=== PATIENT | female | born 1935 | race Caucasian/White ===

== ENCOUNTER 2020-04-09 08:35 | Outpatient (REF) | payer MEDICARE, SELFPAY ==
[2020-04-09 12:05] LABS: Creatinine Urine 68.25 mg/dL; Microalbum/Creatinine Ratio Ur 237.3 ug/mg cr
[2020-04-09 12:10] LABS: Alanine Aminotransferase 20 U/L (0-31); Albumin Level 4.5 g/dL (3.5-5.0); Alkaline Phosphatase 82 U/L (39-117); Anion Gap 12 (12-20); Aspartate Amino Transferase 26 U/L (5-31); Bilirubin Total 0.7 mg/dL (0.0-1.0); Blood Urea Nitrogen 18 mg/dL (9-16); Carbon Dioxide 31 mmol/L (22-29); Chloride 102 mmol/L (96-108); Cholesterol 142 mg/dL; Estimated Glomerular Filt Rate > 60; Glucose Fasting 111 mg/dL (60-99); HDL Cholesterol 62 mg/dL; LDL Cholesterol Calculated 58 mg/dl; Potassium 4.9 mmol/l (3.3-5.1); Sodium 140 mmol/L (135-145); Total Protein 7.1 g/dL (6.5-8.0); Triglycerides 110 mg/dL
[2020-04-09 12:37] LABS: Calcium 10.6 mg/dL (8.4-10.2)
[2020-04-09 12:40] LABS: Estimated Average Glucose 140 mg/dL; Hemoglobin A1C 152.3022 umol/L; Hemoglobin A1c % 6.5 %
== END 2020-04-09 08:36 | disposition home or self-care (01) ==
LOC: HO.MANLR 08:35
PROVIDERS: PCP Physician Assistant; Visit Provider Physician Assistant
DX: E11.9 Type 2 diabetes mellitus without complications (principal)
CPT/HCPCS: 80053; 80061; 82043; 83036

== ENCOUNTER 2020-07-06 08:16 | Outpatient (REF) | payer MEDICARE, SELFPAY ==
[2020-07-06 11:43] LABS: Estimated Average Glucose 143 mg/dL; Hemoglobin A1c % 6.6 %
== END 2020-07-06 08:17 | disposition home or self-care (01) ==
LOC: HO.MANLR 08:16
PROVIDERS: PCP Internal Medicine; Visit Provider Physician Assistant
DX: E11.9 Type 2 diabetes mellitus without complications (principal)
CPT/HCPCS: 36415; 83036

== ENCOUNTER 2020-09-22 09:12 | Outpatient (REF) | payer MEDICARE, SELFPAY ==
[2020-09-22 11:17] LABS: Estimated Average Glucose 143 mg/dL; Hemoglobin A1c % 6.6 %
[2020-09-22 12:00] LABS: Alanine Aminotransferase 16 U/L (0-31); Albumin Level 4.4 g/dL (3.5-5.0); Alkaline Phosphatase 84 U/L (39-117); Anion Gap 17 (12-20); Aspartate Amino Transferase 24 U/L (5-31); Blood Urea Nitrogen 14 mg/dL (9-16); Calcium 10.3 mg/dL (8.4-10.2); Carbon Dioxide 29 mmol/L (22-29); Chloride 101 mmol/L (96-108); Cholesterol 148 mg/dL; Estimated Glomerular Filt Rate > 60; Glucose Fasting 112 mg/dL (60-99); HDL Cholesterol 64 mg/dL; LDL Cholesterol Calculated 57 mg/dl; Potassium 4.9 mmol/L (3.3-5.1); Sodium 142 mmol/L (135-145); Total Protein 7.1 g/dL (6.5-8.0); Triglycerides 137 mg/dL
== END 2020-09-22 09:13 | disposition home or self-care (01) ==
LOC: HO.MANLDS 09:12
PROVIDERS: PCP Internal Medicine; Visit Provider Physician Assistant
DX: E11.9 Type 2 diabetes mellitus without complications (principal)
CPT/HCPCS: 36415; 80053; 80061; 83036

== ENCOUNTER 2020-09-27 10:30 | Outpatient (REF) | payer MEDICARE, SELFPAY ==
[2020-09-27 14:03] LABS: Creatinine Urine 26.62 mg/dL; Microalbumin Urine < 5.0 mg/L
== END 2020-09-27 10:31 | disposition home or self-care (01) ==
LOC: HO.MANLNP 10:30
PROVIDERS: Visit Provider Physician Assistant
DX: E11.9 Type 2 diabetes mellitus without complications (principal)
CPT/HCPCS: 82043

== ENCOUNTER 2020-10-06 08:24 | Outpatient (REF) | payer MEDICARE, SELFPAY ==
[2020-10-06 11:26] LABS: Estimated Average Glucose 140 mg/dL; Hemoglobin A1C 149.2186 umol/L; Hemoglobin A1c % 6.5 %
== END 2020-10-06 08:25 | disposition home or self-care (01) ==
LOC: HO.MANLDS 08:24
PROVIDERS: PCP Internal Medicine; Visit Provider Physician Assistant
DX: E11.9 Type 2 diabetes mellitus without complications (principal)
CPT/HCPCS: 36415; 83036

== ENCOUNTER 2021-01-18 08:30 | Outpatient (REF) | payer MEDICARE, SELFPAY ==
[2021-01-18 11:39] LABS: Estimated Average Glucose 160 mg/dL; Hemoglobin A1c % 7.2 %
== END 2021-01-18 08:31 | disposition home or self-care (01) ==
LOC: HO.MANLDS 08:30
PROVIDERS: PCP Internal Medicine; Visit Provider Physician Assistant
DX: E11.9 Type 2 diabetes mellitus without complications (principal)
CPT/HCPCS: 36415; 83036

== ENCOUNTER 2021-01-26 13:07 | Outpatient (REF) | payer MEDICARE, SELFPAY ==
[2021-01-26 14:21] LABS: Iron 65 mcg/dL (30-160); Percent Iron Saturation 21 % (15-50); Total Iron Binding Capacity 306 mcg/dL (228-428); Unsaturated Iron Binding 241 ug/dL
[2021-01-26 14:42] LABS: Ferritin 67 ng/mL (10-250); Free T4 (Free Thyroxine) 0.99 ng/dL (0.71-1.85); Thyroid Stimulating Hormone 1.55 uIU/mL (0.32-4.0); Vitamin D 25-OH Total 40.2 ng/mL (>30)
[2021-01-26 14:49] LABS: Folate > 20.0 ng/mL (> or = 4.0); Vitamin B12 219 pg/mL (200-900)
== END 2021-01-26 13:08 | disposition home or self-care (01) ==
LOC: HO.LAB 13:07
PROVIDERS: PCP Physician Assistant; Visit Provider Physician Assistant
DX: L63.8 Other alopecia areata (principal)
CPT/HCPCS: 36415; 82306; 82607; 82728; 82746; 83540; 84439; 84443

== ENCOUNTER 2021-04-22 07:38 | Outpatient (REF) | payer MEDICARE, SELFPAY ==
[2021-04-22 10:39] LABS: Estimated Average Glucose 160 mg/dL; Hemoglobin A1c % 7.2 %
[2021-04-22 11:05] LABS: Creatinine Urine 94.59 mg/dL; Microalbum/Creatinine Ratio Ur 238.9 ug/mg cr
[2021-04-22 11:07] LABS: Alanine Aminotransferase 19 U/L (0-31); Albumin Level 4.4 g/dL (3.5-5.0); Alkaline Phosphatase 81 U/L (39-117); Aspartate Amino Transferase 24 U/L (5-31); Bilirubin Total 0.4 mg/dL (0.0-1.0); Blood Urea Nitrogen 15 mg/dL (9-16); Cholesterol 135 mg/dL; Estimated Glomerular Filt Rate 57; Glucose Fasting 151 mg/dL (60-99); HDL Cholesterol 58 mg/dL; LDL Cholesterol Calculated 51 mg/dl; Total Protein 7.1 g/dL (6.5-8.0); Triglycerides 132 mg/dL
[2021-04-22 11:50] LABS: Anion Gap 15 (12-20); Calcium 10.5 mg/dL (8.4-10.2); Carbon Dioxide 28 mmol/L (22-29); Chloride 103 mmol/L (96-108); Potassium 5.4 mmol/L (3.3-5.1); Sodium 141 mmol/L (135-145)
== END 2021-04-22 07:39 | disposition home or self-care (01) ==
LOC: HO.10HDL 07:38
PROVIDERS: Visit Provider Physician Assistant
DX: E11.9 Type 2 diabetes mellitus without complications (principal)
CPT/HCPCS: 36415; 80053; 80061; 82043; 83036

== ENCOUNTER 2021-05-02 11:23 | Outpatient (REF) | payer MEDICARE, SELFPAY ==
--- NOTE | ~2021-05-02 | XR_ITS ---
EXAMINATION: XR THORACIC SPINE XR LUMBAR SPINE CLINICAL INFORMATION: Pain in thoracic and lumbar spine. COMPARISON: Report from lumbar spine radiographs dated 07/19/2012. TECHNIQUE: AP, lateral, and swimmer's views of the thoracic spine. AP, lateral, and coned-down views of the lumbar spine. FINDINGS: Thoracic Spine: The thoracic kyphosis is maintained. No acute fracture or subluxation. No loss of vertebral body height. Mild multilevel loss of intervertebral disc height with anterior endplate osteophytes. No lytic or blastic osseous lesion. The visualized lungs are clear. Lumbar Spine: Rotational dextrocurvature of the lumbar spine centered at the L3 vertebral body. Grade 1 anterolisthesis of L3 on L4. No acute fracture. No loss of vertebral body height. Multilevel loss of intervertebral disc height with endplate osteophytes. Prominent bilateral facet arthropathy at L3-S1. Atherosclerotic calcifications. Right pelvic surgical clips. XR/XR lumbar spine 2-3V IMPRESSION: THORACIC SPINE: Mgoa-px-fbjlothn multilevel degenerative disc disease. LUMBAR SPINE: Rotational dextrocurvature centered at the L3 vertebral body. Grade 1 anterolisthesis of L3 on L4. Ymemgifu-lk-ccdgon multilevel degenerative disc disease with prominent bilateral facet arthropathy at L3-S1.
--- NOTE | ~2021-05-02 | XR_ITS ---
EXAMINATION: XR THORACIC SPINE XR LUMBAR SPINE CLINICAL INFORMATION: Pain in thoracic and lumbar spine. COMPARISON: Report from lumbar spine radiographs dated 07/19/2012. TECHNIQUE: AP, lateral, and swimmer's views of the thoracic spine. AP, lateral, and coned-down views of the lumbar spine. FINDINGS: Thoracic Spine: The thoracic kyphosis is maintained. No acute fracture or subluxation. No loss of vertebral body height. Mild multilevel loss of intervertebral disc height with anterior endplate osteophytes. No lytic or blastic osseous lesion. The visualized lungs are clear. Lumbar Spine: Rotational dextrocurvature of the lumbar spine centered at the L3 vertebral body. Grade 1 anterolisthesis of L3 on L4. No acute fracture. No loss of vertebral body height. Multilevel loss of intervertebral disc height with endplate osteophytes. Prominent bilateral facet arthropathy at L3-S1. Atherosclerotic calcifications. Right pelvic surgical clips. XR/XR thoracic spine 3V IMPRESSION: THORACIC SPINE: Iswr-is-ybmzrfty multilevel degenerative disc disease. LUMBAR SPINE: Rotational dextrocurvature centered at the L3 vertebral body. Grade 1 anterolisthesis of L3 on L4. Dcdjmqcv-nw-yvfxdg multilevel degenerative disc disease with prominent bilateral facet arthropathy at L3-S1.
== END 2021-05-02 11:24 | disposition home or self-care (01) ==
LOC: HO.XRAY 11:23
PROVIDERS: PCP Internal Medicine; Visit Provider Physician Assistant
DX: M54.59 Other low back pain (principal); M54.6 Pain in thoracic spine
CPT/HCPCS: 72072; 72100

== ENCOUNTER 2021-07-27 09:05 | Outpatient (REF) | payer MEDICARE, SELFPAY ==
[2021-07-27 10:58] LABS: Estimated Average Glucose 160 mg/dL; Hemoglobin A1c % 7.2 %
[2021-07-27 11:01] LABS: Alanine Aminotransferase 19 U/L (0-31); Albumin Level 4.4 g/dL (3.5-5.0); Alkaline Phosphatase 86 U/L (39-117); Anion Gap 16 (12-20); Aspartate Amino Transferase 24 U/L (5-31); Bilirubin Total 0.5 mg/dL (0.0-1.0); Blood Urea Nitrogen 17 mg/dL (9-16); Calcium 10.7 mg/dL (8.4-10.2); Carbon Dioxide 29 mmol/L (22-29); Chloride 103 mmol/L (96-108); Cholesterol 144 mg/dL; Estimated Glomerular Filt Rate > 60; Glucose Fasting 155 mg/dL (60-99); HDL Cholesterol 60 mg/dL; LDL Cholesterol Calculated 58 mg/dl; Potassium 5.3 mmol/L (3.3-5.1); Sodium 143 mmol/L (135-145); Triglycerides 131 mg/dL
[2021-07-27 11:30] LABS: Creatinine Urine 81.35 mg/dL; Microalbum/Creatinine Ratio Ur 243.3 ug/mg cr
== END 2021-07-27 09:06 | disposition home or self-care (01) ==
LOC: HO.10HDLR 09:05
PROVIDERS: Visit Provider Physician Assistant
DX: E11.9 Type 2 diabetes mellitus without complications (principal)
CPT/HCPCS: 36415; 80053; 80061; 82043; 83036

== ENCOUNTER 2021-10-26 08:44 | Outpatient (REF) | payer MEDICARE, SELFPAY ==
[2021-10-26 11:06] LABS: Alanine Aminotransferase 18 U/L (0-31); Albumin Level 4.4 g/dL (3.5-5.0); Alkaline Phosphatase 83 U/L (39-117); Anion Gap 14 (12-20); Aspartate Amino Transferase 24 U/L (5-31); Bilirubin Total 0.5 mg/dL (0.0-1.0); Blood Urea Nitrogen 16 mg/dL (9-16); Calcium 10.9 mg/dL (8.4-10.2); Carbon Dioxide 30 mmol/L (22-29); Chloride 105 mmol/L (96-108); Cholesterol 140 mg/dL; Estimated Glomerular Filt Rate 55; Glucose Random 144 mg/dL (60-115); HDL Cholesterol 56 mg/dL; LDL Cholesterol Calculated 56 mg/dl; Potassium 5.2 mmol/L (3.3-5.1); Sodium 144 mmol/L (135-145); Total Protein 7.2 g/dL (6.5-8.0); Triglycerides 143 mg/dL
[2021-10-26 11:08] LABS: Estimated Average Glucose 151 mg/dL; Hemoglobin A1c % 6.9 %
== END 2021-10-26 08:45 | disposition home or self-care (01) ==
LOC: HO.10HDL 08:44
PROVIDERS: Visit Provider Physician Assistant
DX: E11.9 Type 2 diabetes mellitus without complications (principal)
CPT/HCPCS: 36415; 80053; 80061; 83036

== ENCOUNTER 2021-11-16 10:30 | Outpatient (REF) | payer MEDICARE, SELFPAY ==
[2021-11-16 13:44] LABS: Calcium 10.9 mg/dL (8.4-10.2)
[2021-11-17 13:14] LABS: Calcium (PTHI) 10.7 mg/dL (8.6-10.4); PTHI 46 pg/mL (16-77)
== END 2021-11-16 10:31 | disposition home or self-care (01) ==
LOC: HO.10HDL 10:30
PROVIDERS: Visit Provider Physician Assistant
DX: E83.52 Hypercalcemia (principal)
CPT/HCPCS: 36415; 82310; 83970

== ENCOUNTER 2021-12-13 10:12 | Outpatient (REF) | payer MEDICARE, SELFPAY ==
[2021-12-13 14:07] LABS: Estimated Average Glucose 151 mg/dL; Hemoglobin A1c % 6.9 %
== END 2021-12-13 10:13 | disposition home or self-care (01) ==
LOC: HO.10HDL 10:12
PROVIDERS: Visit Provider Physician Assistant
DX: E11.9 Type 2 diabetes mellitus without complications (principal)
CPT/HCPCS: 36415; 83036

== ENCOUNTER 2022-05-10 08:15 | Outpatient (REF) | payer MEDICARE, SELFPAY ==
[2022-05-10 11:02] LABS: Estimated Average Glucose 166 mg/dL; Hemoglobin A1c % 7.4 %
[2022-05-10 12:29] LABS: Alanine Aminotransferase 24 U/L (0-31); Albumin Level 4.6 g/dL (3.5-5.0); Alkaline Phosphatase 78 U/L (39-117); Anion Gap 18 (12-20); Aspartate Amino Transferase 27 U/L (5-31); Bilirubin Total 0.6 mg/dL (0.0-1.0); Blood Urea Nitrogen 15 mg/dL (9-16); Calcium 10.6 mg/dL (8.4-10.2); Carbon Dioxide 28 mmol/L (22-29); Chloride 100 mmol/L (96-108); Cholesterol 160 mg/dL; Estimated Glomerular Filt Rate > 60; Glucose Fasting 138 mg/dL (60-99); HDL Cholesterol 72 mg/dL; LDL Cholesterol Calculated 71 mg/dl; Potassium 4.6 mmol/L (3.3-5.1); Sodium 141 mmol/L (135-145); Total Protein 7.3 g/dL (6.5-8.0); Triglycerides 87 mg/dL
== END 2022-05-10 08:16 | disposition home or self-care (01) ==
LOC: HO.10HDLR 08:15
PROVIDERS: Visit Provider Physician Assistant
DX: E11.9 Type 2 diabetes mellitus without complications (principal)
CPT/HCPCS: 36415; 80053; 80061; 83036

== ENCOUNTER 2022-08-10 08:49 | Outpatient (REF) | payer MEDICARE, SELFPAY ==
[2022-08-10 11:46] LABS: Alanine Aminotransferase 20 U/L (0-31); Albumin Level 4.4 g/dL (3.5-5.0); Alkaline Phosphatase 76 U/L (39-117); Anion Gap 17 (12-20); Aspartate Amino Transferase 27 U/L (5-31); Bilirubin Total 0.9 mg/dL (0.0-1.0); Blood Urea Nitrogen 15 mg/dL (9-16); Calcium 10.5 mg/dL (8.4-10.2); Carbon Dioxide 28 mmol/L (22-29); Chloride 101 mmol/L (96-108); Cholesterol 152 mg/dL; Estimated Glomerular Filt Rate > 60; Glucose Fasting 132 mg/dL (60-99); HDL Cholesterol 61 mg/dL; LDL Cholesterol Calculated 61 mg/dl; Potassium 4.5 mmol/L (3.3-5.1); Sodium 141 mmol/L (135-145); Triglycerides 154 mg/dL
[2022-08-10 11:48] LABS: Estimated Average Glucose 160 mg/dL; Hemoglobin A1c % 7.2 %
== END 2022-08-10 08:50 | disposition home or self-care (01) ==
LOC: HO.10HDLR 08:49
PROVIDERS: Visit Provider Physician Assistant
DX: E11.9 Type 2 diabetes mellitus without complications (principal)
CPT/HCPCS: 36415; 80053; 80061; 83036

== ENCOUNTER 2022-11-10 08:37 | Outpatient (REF) | payer MEDICARE, SELFPAY ==
[2022-11-10 10:44] LABS: Estimated Average Glucose 157 mg/dL; Hemoglobin A1c % 7.1 %
[2022-11-10 11:05] LABS: Alanine Aminotransferase 32 U/L (0-31); Albumin Level 4.2 g/dL (3.5-5.0); Alkaline Phosphatase 74 U/L (39-117); Anion Gap 13 (12-20); Aspartate Amino Transferase 34 U/L (5-31); Bilirubin Total 0.4 mg/dL (0.0-1.0); Blood Urea Nitrogen 16 mg/dL (9-16); Calcium 10.2 mg/dL (8.4-10.2); Carbon Dioxide 31 mmol/L (22-29); Chloride 105 mmol/L (96-108); Cholesterol 140 mg/dL; Estimated Glomerular Filt Rate > 60; Glucose Fasting 125 mg/dL (60-99); HDL Cholesterol 63 mg/dL; LDL Cholesterol Calculated 63 mg/dl; Potassium 4.9 mmol/L (3.3-5.1); Sodium 144 mmol/L (135-145); Total Protein 6.7 g/dL (6.5-8.0); Triglycerides 70 mg/dL
== END 2022-11-10 08:38 | disposition home or self-care (01) ==
LOC: HO.10HDL 08:37
PROVIDERS: Visit Provider Physician Assistant
DX: E11.9 Type 2 diabetes mellitus without complications (principal)
CPT/HCPCS: 36415; 80053; 80061; 83036

== ENCOUNTER 2023-03-07 09:32 | Outpatient (REF) | payer MEDICARE, SELFPAY ==
[2023-03-07 10:11] LABS: MANUAL DIFF FLAG NO
[2023-03-07 10:16] LABS: Basophils Percent Auto 0.3 % (0-2); Eosinophils Absolute Auto 0.1 X10*3/uL (0.0-0.4); Hematocrit 40.6 % (37.0-47.0); Hemoglobin 13.5 g/dl (12.0-16.0); Imm Gran Abs Auto 0.02 X10*3/uL (0.00-0.03); Imm Gran Pct Auto 0.3 % (0.0-0.4); Lymphocytes Absolute Auto 1.9 X10*3/uL (1.2-4.9); Mean Corpuscular HGB Conc 33.3 g/dl (31.0-35.0); Mean Corpuscular Hemoglobin 32.8 pg (27.0-33.0); Mean Corpuscular Volume 98.8 fL (80.0-98.0); Mean Platelet Volume 10.2 fL (9.4-12.3); Monocytes Absolute Auto 0.5 X10*3/uL (0.1-1.2); Monocytes Percent Auto 7.7 % (2-11); Neutrophils Absolute Auto 3.4 x10*3/uL (2.0-8.3); Neutrophils Percent Auto 58.7 % (45-73); Platelet Count 210 X10*3/uL (160-400); Red Blood Count 4.11 X10*6/uL (4.20-5.50); Red Cell Distribution Width 12.9 % (11.0-16.0); White Blood Count 5.8 X10*3/uL (4.8-10.8)
[2023-03-07 10:45] LABS: Estimated Average Glucose 151 mg/dL; Hemoglobin A1c % 6.9 % (<6.0)
[2023-03-07 11:10] LABS: Creatinine Urine 84.05 mg/dL; Microalbum/Creatinine Ratio Ur 303.3 ug/mg cr (<30)
[2023-03-07 11:11] LABS: Alanine Aminotransferase 22 U/L (0-31); Albumin Level 4.5 g/dL (3.5-5.0); Alkaline Phosphatase 72 U/L (39-117); Anion Gap 12 (12-20); Aspartate Amino Transferase 29 U/L (5-31); Bilirubin Total 0.6 mg/dL (0.0-1.0); Blood Urea Nitrogen 17 mg/dL (9-16); Calcium 10.7 mg/dL (8.4-10.2); Carbon Dioxide 29 mmol/L (22-29); Chloride 104 mmol/L (96-108); Cholesterol 135 mg/dL (<200); Estimated Glomerular Filt Rate > 60; Glucose Random 147 mg/dL (60-115); HDL Cholesterol 63 mg/dL (>40); LDL Cholesterol Calculated 48 mg/dL (<100); Potassium 4.9 mmol/L (3.3-5.1); Sodium 140 mmol/L (135-145); Total Protein 7.6 g/dL (6.5-8.0); Triglycerides 123 mg/dL (<150)
== END 2023-03-07 09:33 | disposition home or self-care (01) ==
LOC: HO.10HDL 09:32
PROVIDERS: Visit Provider Physician Assistant
DX: E11.9 Type 2 diabetes mellitus without complications (principal); E78.2 Mixed hyperlipidemia
CPT/HCPCS: 36415; 80053; 80061; 82043; 82570; 83036; 85025

== ENCOUNTER 2023-03-12 10:52 | Outpatient (REF) | payer MEDICARE, SELFPAY ==
[2023-03-12 13:34] LABS: Calcium 10.9 mg/dL (8.4-10.2)
[2023-03-13 17:09] LABS: Calcium (PTHI) 10.7 mg/dL (8.6-10.4); PTHI 44 pg/mL (16-77)
== END 2023-03-12 10:53 | disposition home or self-care (01) ==
LOC: HO.10HDL 10:52
PROVIDERS: Visit Provider Physician Assistant
DX: E83.52 Hypercalcemia (principal)
CPT/HCPCS: 36415; 82310; 83970

== ENCOUNTER 2023-04-04 14:09 | Outpatient (REF) | payer MEDICARE, SELFPAY | END 2023-04-04 14:10 | disposition home or self-care (01) | LOC: HO.US 14:09 | PROVIDERS: PCP Internal Medicine; Visit Provider Physician Assistant | DX: E21.3 Hyperparathyroidism, unspecified (principal) | CPT/HCPCS: 76536 ==

== ENCOUNTER 2023-04-06 08:38 | Outpatient (REF) | payer MEDICARE, SELFPAY | END 2023-04-06 08:39 | disposition home or self-care (01) | LOC: HO.MAMMO 08:38 | PROVIDERS: PCP Physician Assistant; Visit Provider Physician Assistant | DX: Z13.820 Encounter for screening for osteoporosis (principal); Z78.0 Asymptomatic menopausal state; M81.0 Age-related osteoporosis without current pathological fracture | CPT/HCPCS: 77080 ==

== ENCOUNTER 2023-05-22 09:07 | Outpatient (REF) | payer MEDICARE, SELFPAY ==
[2023-05-22 10:50] LABS: Estimated Average Glucose 160 mg/dL; Hemoglobin A1C 192.5946 umol/L; Hemoglobin A1c % 7.2 % (<6.0)
[2023-05-22 10:53] LABS: Alanine Aminotransferase 23 U/L (0-31); Albumin Level 4.4 g/dL (3.5-5.0); Alkaline Phosphatase 73 U/L (39-117); Anion Gap 13 (12-20); Aspartate Amino Transferase 30 U/L (5-31); Bilirubin Total 0.6 mg/dL (0.0-1.0); Blood Urea Nitrogen 12 mg/dL (9-16); Calcium 10.9 mg/dL (8.4-10.2); Carbon Dioxide 30 mmol/L (22-29); Chloride 106 mmol/L (96-108); Estimated Glomerular Filt Rate 49; Glucose Random 158 mg/dL (60-115); Potassium 5.1 mmol/L (3.3-5.1); Sodium 144 mmol/L (135-145); Total Protein 7.6 g/dL (6.5-8.0)
== END 2023-05-22 09:08 | disposition home or self-care (01) ==
LOC: HO.10HDL 09:07
PROVIDERS: Visit Provider Physician Assistant
DX: E11.9 Type 2 diabetes mellitus without complications (principal)
CPT/HCPCS: 36415; 80053; 83036

== ENCOUNTER 2023-08-23 08:50 | Outpatient (REF) | payer MEDICARE, SELFPAY ==
[2023-08-23 11:21] LABS: Alanine Aminotransferase 23 U/L (0-31); Albumin Level 4.5 g/dL (3.5-5.0); Alkaline Phosphatase 80 U/L (39-117); Anion Gap 17 (12-20); Aspartate Amino Transferase 31 U/L (5-31); Bilirubin Total 0.6 mg/dL (0.0-1.0); Blood Urea Nitrogen 15 mg/dL (9-16); Calcium 10.7 mg/dL (8.4-10.2); Carbon Dioxide 28 mmol/L (22-29); Chloride 103 mmol/L (96-108); Estimated Glomerular Filt Rate > 60; Glucose Random 147 mg/dL (60-115); Potassium 4.5 mmol/L (3.3-5.1); Sodium 143 mmol/L (135-145); Total Protein 7.6 g/dL (6.5-8.0)
== END 2023-08-23 08:51 | disposition home or self-care (01) ==
LOC: HO.10HDL 08:50
PROVIDERS: Visit Provider Physician Assistant
DX: E11.9 Type 2 diabetes mellitus without complications (principal)
CPT/HCPCS: 36415; 80053

== ENCOUNTER 2023-09-07 08:47 | Outpatient (REF) | payer MEDICARE, SELFPAY ==
[2023-09-07 11:49] LABS: MANUAL DIFF FLAG NO
[2023-09-07 12:01] LABS: Basophils Percent Auto 0.3 % (0-2); Eosinophils Absolute Auto 0.1 X10*3/uL (0.0-0.4); Eosinophils Percent Auto 1.2 % (0-4); Hemoglobin 13.4 g/dl (12.0-16.0); Imm Gran Abs Auto 0.04 X10*3/uL (0.00-0.03); Imm Gran Pct Auto 0.7 % (0.0-0.4); Lymphocytes Absolute Auto 2.2 X10*3/uL (1.2-4.9); Lymphocytes Percent Auto 36.8 % (20-40); Mean Corpuscular HGB Conc 32.7 g/dl (31.0-35.0); Mean Corpuscular Hemoglobin 32.6 pg (27.0-33.0); Mean Corpuscular Volume 99.8 fL (80.0-98.0); Mean Platelet Volume 10.3 fL (9.4-12.3); Monocytes Absolute Auto 0.4 X10*3/uL (0.1-1.2); Monocytes Percent Auto 6.5 % (2-11); Neutrophils Absolute Auto 3.3 x10*3/uL (2.0-8.3); Neutrophils Percent Auto 54.5 % (45-73); Platelet Count 225 X10*3/uL (160-400); Red Blood Count 4.11 X10*6/uL (4.20-5.50); Red Cell Distribution Width 13.6 % (11.0-16.0)
[2023-09-07 12:14] LABS: Estimated Average Glucose 146 mg/dL; Hemoglobin A1c % 6.7 % (<6.0)
[2023-09-07 13:01] LABS: Alanine Aminotransferase 23 U/L (0-31); Albumin Level 4.4 g/dL (3.5-5.0); Alkaline Phosphatase 79 U/L (39-117); Anion Gap 17 (12-20); Aspartate Amino Transferase 30 U/L (5-31); Bilirubin Total 0.5 mg/dL (0.0-1.0); Blood Urea Nitrogen 15 mg/dL (9-16); Calcium 10.5 mg/dL (8.4-10.2); Carbon Dioxide 30 mmol/L (22-29); Chloride 102 mmol/L (96-108); Cholesterol 138 mg/dL (<200); Estimated Glomerular Filt Rate 57; Glucose Random 142 mg/dL (60-115); HDL Cholesterol 66 mg/dL (>40); LDL Cholesterol Calculated 46 mg/dL (<100); Potassium 4.5 mmol/L (3.3-5.1); Sodium 144 mmol/L (135-145); Total Protein 7.6 g/dL (6.5-8.0); Triglycerides 130 mg/dL (<150)
== END 2023-09-07 08:48 | disposition home or self-care (01) ==
LOC: HO.10HDL 08:47
PROVIDERS: Visit Provider Physician Assistant
DX: E78.2 Mixed hyperlipidemia (principal); E11.9 Type 2 diabetes mellitus without complications
CPT/HCPCS: 36415; 80053; 80061; 83036; 85025

== ENCOUNTER 2023-10-24 13:18 | Outpatient (REF) | payer MEDICARE, SELFPAY ==
--- NOTE | ~2023-10-24 | US_ITS ---
EXAMINATION: US THYROID CLINICAL INFORMATION: Hyperparathyroidism. COMPARISON: Ultrasound thyroid 04/04/2023. TECHNIQUE: Linear transducer lopez-scale and color Doppler examination with attention to the region of the thyroid. FINDINGS: SIZE: Measurements of the thyroid lobes and nodules are given in sagittal, anteroposterior and transverse dimensions respectively. Right Thyroid Lobe: 4.2 x 1.6 x 1.6 cm, volume 5.7 mL. Parenchyma: The gland echotexture is homogeneous. Thyroid vascularity is normal. Left Thyroid Lobe: 4.5 x 2.0 x 1.1 cm, volume 4.9 mL. Parenchyma: The gland echotexture is homogeneous. Thyroid vascularity is normal. Isthmus: 0.3 cm in maximum AP dimension. Estimated total number of nodules greater than or equal to 1 cm: 0. Bag Cutter nodules are described as follows: 1. Location: Left very inferior. Size: 0.6 x 0.6 x 0.7 cm, volume 0.12 mL. Previously 0.7 x 0.6 x 0.6 cm, volume 0.13 mL. Nodule characteristics: Composition: Solid (2). Echogenicity: Very hypoechoic (3). Shape: Not taller than wide (0). Margins: Smooth (0). Echogenic Foci: None (0). ACR TI-RADS total points: 5, previously 5. ACR TI-RADS category: 4, previously 4. 2. Location: Left lower pole. 1.5 x 1.0 x 1.1 cm, volume 0.9 mL. Not previously measured. Nodule characteristics: Composition: Solid (2). Echogenicity: Hypoechoic (2). Shape: Not taller than wide (0). Margins: Smooth (0). Echogenic Foci: Punctate echogenic foci (3). ACR TI-RADS total points: 7 ACR TI-RADS category: 5 Multiple small, bilateral subcentimeter TR1 colloid cysts redemonstrated. NODES: No lymphadenopathy is seen in the tissue surrounding the thyroid gland. US/US thyroid IMPRESSION: 1.5 cm left lower pole TR5 thyroid nodule was not previously imaged and meets criteria for biopsy. Fine-needle aspiration recommended. This study was presented today, 10/31/2023, for interpretation. Prompt priority results supplied at this time to the referring provider as requested by the provider. ACR TI-RADS RECOMMENDATION REFERENCE: Ultrasound-guided fine-needle aspiration, followup ultrasound, no further follow up. * TR1 (0 point) and TR2 (2 points): No FNA or follow up. * TR3 (3 points): FNA if more than or equal to 2.5 cm in maximum dimension, followup ultrasound in 1, 3 and 5 years if 1.5 to 2.4 cm in maximum dimension. * TR4 (4-6 points): FNA if more than or equal to 1.5 cm in maximum dimension, followup ultrasound in 1, 2, 3 and 5 years if 1 to 1.4 cm in maximum dimension. * TR5 (more than or equal to 7 points): FNA if more than or equal to 1 cm in maximum dimension, followup ultrasound every year for 5 years if 0.5 to 0.9 cm in maximum dimension. * TR3, TR4 or TR5 nodules that are below the size threshold for followup receive no follow up.
== END 2023-10-24 13:19 | disposition home or self-care (01) ==
LOC: HO.US 13:18
PROVIDERS: PCP Physician Assistant; Visit Provider Physician Assistant
DX: E21.0 Primary hyperparathyroidism (principal)
CPT/HCPCS: 76536

== ENCOUNTER 2023-12-11 08:03 | Outpatient (REF) | payer MEDICARE, SELFPAY ==
[2023-12-11 10:56] LABS: MANUAL DIFF FLAG NO
[2023-12-11 11:10] LABS: Basophils Percent Auto 0.4 % (0-2); Eosinophils Absolute Auto 0.1 X10*3/uL (0.0-0.4); Eosinophils Percent Auto 1.7 % (0-4); Hematocrit 39.3 % (37.0-47.0); Hemoglobin 13.1 g/dl (12.0-16.0); Imm Gran Abs Auto 0.01 X10*3/uL (0.00-0.03); Imm Gran Pct Auto 0.2 % (0.0-0.4); Lymphocytes Absolute Auto 1.5 X10*3/uL (1.2-4.9); Lymphocytes Percent Auto 30.5 % (20-40); Mean Corpuscular HGB Conc 33.3 g/dl (31.0-35.0); Mean Corpuscular Hemoglobin 33.1 pg (27.0-33.0); Mean Corpuscular Volume 99.2 fL (80.0-98.0); Mean Platelet Volume 10.1 fL (9.4-12.3); Monocytes Absolute Auto 0.5 X10*3/uL (0.1-1.2); Monocytes Percent Auto 10.9 % (2-11); Neutrophils Absolute Auto 2.7 x10*3/uL (2.0-8.3); Neutrophils Percent Auto 56.3 % (45-73); Platelet Count 194 X10*3/uL (160-400); Red Blood Count 3.96 X10*6/uL (4.20-5.50); White Blood Count 4.8 X10*3/uL (4.8-10.8)
[2023-12-11 11:18] LABS: Estimated Average Glucose 148 mg/dL; Hemoglobin A1c % 6.8 % (<6.0)
[2023-12-11 12:27] LABS: Alanine Aminotransferase 26 U/L (0-31); Albumin Level 4.3 g/dL (3.5-5.0); Alkaline Phosphatase 77 U/L (39-117); Anion Gap 15 (12-20); Aspartate Amino Transferase 31 U/L (5-31); Bilirubin Total 0.5 mg/dL (0.0-1.0); Blood Urea Nitrogen 8 mg/dL (9-16); Calcium 10.5 mg/dL (8.4-10.2); Carbon Dioxide 27 mmol/L (22-29); Chloride 103 mmol/L (96-108); Cholesterol 126 mg/dL (<200); Estimated Glomerular Filt Rate > 60; Glucose Random 128 mg/dL (60-115); HDL Cholesterol 55 mg/dL (>40); LDL Cholesterol Calculated 43 mg/dL (<100); Potassium 4.2 mmol/L (3.3-5.1); Sodium 141 mmol/L (135-145); Total Protein 7.2 g/dL (6.5-8.0); Triglycerides 140 mg/dL (<150)
== END 2023-12-11 08:04 | disposition home or self-care (01) ==
LOC: HO.10HDL 08:03
PROVIDERS: Visit Provider Physician Assistant
DX: E78.2 Mixed hyperlipidemia (principal); E11.9 Type 2 diabetes mellitus without complications
CPT/HCPCS: 36415; 80053; 80061; 83036; 85025

== ENCOUNTER 2024-03-24 10:16 | Outpatient (REF) | payer MEDICARE, SELFPAY ==
[2024-03-24 13:14] LABS: MANUAL DIFF FLAG NO
[2024-03-24 13:18] LABS: Basophils Percent Auto 0.4 % (0-2); Eosinophils Absolute Auto 0.1 X10*3/uL (0.0-0.4); Eosinophils Percent Auto 1.5 % (0-4); Hematocrit 39.5 % (37.0-47.0); Imm Gran Abs Auto 0.01 X10*3/uL (0.00-0.03); Imm Gran Pct Auto 0.2 % (0.0-0.4); Lymphocytes Absolute Auto 2.2 X10*3/uL (1.2-4.9); Mean Corpuscular HGB Conc 32.9 g/dl (31.0-35.0); Mean Corpuscular Hemoglobin 32.7 pg (27.0-33.0); Mean Corpuscular Volume 99.5 fL (80.0-98.0); Mean Platelet Volume 10.1 fL (9.4-12.3); Monocytes Absolute Auto 0.4 X10*3/uL (0.1-1.2); Monocytes Percent Auto 7.3 % (2-11); Neutrophils Absolute Auto 2.7 x10*3/uL (2.0-8.3); Neutrophils Percent Auto 50.6 % (45-73); Platelet Count 208 X10*3/uL (160-400); Red Blood Count 3.97 X10*6/uL (4.20-5.50); Red Cell Distribution Width 13.2 % (11.0-16.0); White Blood Count 5.4 X10*3/uL (4.8-10.8)
[2024-03-24 13:32] LABS: Alanine Aminotransferase 24 U/L (0-31); Albumin Level 4.4 g/dL (3.5-5.0); Alkaline Phosphatase 74 U/L (39-117); Anion Gap 14 (12-20); Aspartate Amino Transferase 31 U/L (5-31); Bilirubin Total 0.6 mg/dL (0.0-1.0); Blood Urea Nitrogen 12 mg/dL (9-16); Calcium 10.5 mg/dL (8.4-10.2); Carbon Dioxide 28 mmol/L (22-29); Chloride 102 mmol/L (96-108); Cholesterol 133 mg/dL (<200); Estimated Glomerular Filt Rate 57; Glucose Random 134 mg/dL (60-115); HDL Cholesterol 59 mg/dL (>40); LDL Cholesterol Calculated 49 mg/dL (<100); Potassium 4.1 mmol/L (3.3-5.1); Sodium 140 mmol/L (135-145); Total Protein 7.4 g/dL (6.5-8.0); Triglycerides 125 mg/dL (<150)
[2024-03-24 13:57] LABS: Estimated Average Glucose 148 mg/dL; Hemoglobin A1c % 6.8 % (<6.0)
== END 2024-03-24 10:17 | disposition home or self-care (01) ==
LOC: HO.10HDL 10:16
PROVIDERS: Visit Provider Physician Assistant
DX: E78.2 Mixed hyperlipidemia (principal); E11.9 Type 2 diabetes mellitus without complications
CPT/HCPCS: 36415; 80053; 80061; 83036; 85025

== ENCOUNTER 2024-07-04 08:20 | Outpatient (REF) | payer MEDICARE, SELFPAY ==
--- OUTSIDE RECORDS SUMMARY | 2024-07-04 08:26 | XMS_ITS | Patient Health Record ---
[facility] Address [address] [place] [address] Care Team Providers Care Director Software Name Role Phone Trever Tang MD Primary Care Provider Unavailabl e Black, Suri Unavailable [phone] Allergies Allergen (clinical drug ingredient) Drug/Non Drug Allergy documented on EMR Reaction Allergy Type Onset Date Status sulfamethoxazole / trimethoprim Bactrim Unknown Drug Allergy Active celecoxib Celebrex Unknown Drug Allergy Active glimepiride Glimepiride hives Drug Allergy Act nimesh atorvastatin Lipitor Unknown Drug Allergy Acti ve acetaminophen / oxycodone Percocet Unknown Drug Allergy Active Percodan Unknown Drug Allergy Active Adhesive Unknown Allergy Active codeine Codeine Unknown Drug Allergy Active Latex Latex Unknown Allergy Active morphine Morphine Unknown Drug Allergy Active Penicillin Unknown Drug Allergy Active phenylephrine Phenylephrine Unknown Drug Allergy Active rofecoxib Rofecoxib Unknown Drug Allergy Active Results Component Value Reference Range Notes HEMOGLOBIN A1C (GLYCOHEMOGLO BIN) Reviewed date:09/13/2023 01:03:42 PM Interpretation: Performing Lab: Notes/Report: HEMOGLOBIN A1C (HH) 6.7 HEMOGLOBIN A1C (GLYCOHEMOGLO BIN) Reviewed date:04/07/2024 09:09:42 AM Interpretation: Performing Lab: Notes/Report: TOTAL HEMOGLOBIN (HGBA1C) 6.8 Reason For Referral No Information Medications Medication SIG (Take, Route, Frequency, Duration) Notes Start Date End Date Status Flax Oil Xtra Not-Ta irma hydroCHLOROthiazide 12.5 MG Orally Once a day Not-Taking Extra Depth Orthopedic Shoes (1 Pair) with Customized Heat Molded Multidensity Innersoles (3 Pair) as directed Dx: NIDDM/Polyneuropathy (E11.42), Hammertoe Foot Deformity (M20.41,M20.42), Preulcerative Skin Lesion(s) (L85.1 11/17/2021 Active Physical Therapy . . . 2-3x/week for 3- 4 weeks 01/01/2018 Not-Taking Simvastatin 20 MG Orally Once a day Not-Taking Vitamin D3 Active Extra Depth Orthopedic Shoes (1 Pair) with Customized Heat Molded Multidensity Innersoles (3 Pair) as directed Dx: NIDDM/Polyneuropathy (E11.42), Hammertoe Foot Deformity (M20.41,M20.42), Preulcerative Skin Lesion(s) (L85.1 08/01/2017 Not-Taking Extra Depth Orthopedic Shoes (1 Pair) with Customized Heat Molded Multidensity Innersoles (3 Pair) as directed Dx: NIDDM/Polyneuropathy (E11.42), Hammertoe Foot Deformity (M20.41,M20.42), Preulcerative Skin Lesion(s) (L85.1 04/07/2024 Active Jamie Brace . . . . for . 07/30/2017 No t-Taking ASO Ankle/Foot Stablizing AFO As directed Wear Daily for as needed 05/31/2017 Not-Taking Physical Therapy . . . 2-3x/week for 3- 4 weeks 07/30/2017 Not-Taking Extra Depth Orthopedic Shoes (1 Pair) with Customized Heat Molded Multidensity Innersoles (3 Pair) as directed Dx: NIDDM/Polyneuropathy (E11.42), Hammertoe Foot Deformity (M20.41,M20.42), Preulcerative Skin Lesion(s) (L85.1 02/22/2023 Not-Taking Physical Therapy 3-4x per week for 3- 4 weeks 06/14/2017 Not-Taking metFORMIN HCl 500 MG 1 tablet with meals Orally Twice a day Active Atenolol 25 MG Orally Once a day Not-Taking Probiotic once daily Active Extra Depth Orthopedic Shoes (1 Pair) with Customized Heat Molded Multidensity Innersoles (3 Pair) as directed Dx: NIDDM/Polyneuropathy (E11.42), Hammertoe Foot Deformity (M20.41,M20.42), Preulcerative Skin Lesion(s) (L85.1 Not-Taking Aspirin 81 MG Orally Once a day Active Extra Depth Orthopedic Shoes (1 Pair) with Customized Heat Molded Multidensity Innersoles (3 Pair) as directed Dx: NIDDM/Polyneuropathy (E11.42), Hammertoe Foot Deformity (M20.41,M20.42), Preulcerative Skin Lesion(s) (L85.1 08/01/2018 Not-Taking Lisinopril 10 MG Orally Once a day Active Night Splint AFO - L1930 as directed 03/07/2018 Not-Taking Rosuvastatin Calcium 40 MG 1 tablet Oral ly Once a day for 30 day(s) Active Immunizations Vaccine Route Administration Date Status Comme nts COVID-19 Pfizer BioNTech Vaccine Unknown 03/29/2021 Administered First Dose:07/30/2020 2nd dose:08/20/2020 Influenza Unknown 04/25/2017 Administered Influenza Unknown 03/31/2018 Administered Influenza Unknown 05/02/2019 Administered Influenza Unknown 03/29/2020 Administered Influenza Unknown 03/02/2021 Administered Influenza Unknown 03/02/2022 Administered Influenza Unknown 03/02/2023 Administered Social History Tobacco Use: Social History Observation Description Date Details (start date - stop date) Former Smoker NA - NA Tobacco Use/Smoking Question Answer Notes Are you a: former smoker How long has it been since you last smoked? < 1 month Additional Findings: Tobacco Non-User Current no n-smoker Alcohol Screen Question Answer Notes Did you have a drink containing alcohol in the p ast year? No Points 0 Interpretation Negative Tobacco use other than smoking: Question Answer Notes Are you an other tobacco user? No Section Notes: . . . . . . . . . . . . . . . . . . . . . . . . . Problems Problem Type SNOMED Code ICD Code Onset Dates Problem Status W/U Status Risk Notes Problem Acquired hammer toe of right foot (8904332294945184 ) Other hammer toe(s) (acquired), right foot (M20.41) Active confirmed Problem Acquired hammer toe of left foot (9247608853844544 ) Other hammer toe(s) (acquired), left foot (M20.42) Active confirmed Problem Localized, primary osteoarthritis of the ankle and/or foot (594134335) Primary osteoarthritis, right ankle and foot (M19.071) Active confirmed Problem Polyneuropathy due to type 2 diabetes mellitus (077421761) Type 2 diabetes mellitus with diabetic polyneuropathy (E11.42) Active confirmed Vital Signs Blood pressure diastolic 74 mm Hg 12/24/2023 Height 5 ft 1 in in 04/07/2024 Blood pressure systolic 130 mm Hg 12/24/2023 Weight 164 lbs 04/07/2024 BMI 30.98 kg/m2 04/07/2024 Procedures Procedure Date Ordered Date Performed Result Body Sit e 17892-XUPQ SKIN LESIONS, 2 TO 4 09/13/2023 N/A V6433-JCSELKLG DYSTROPHIC NAILS ANY # 09/13/2023 N/A 35603-Jcdyrvnj Plate 12/24/2023 N/A 33133-EUNF SKIN LESIONS, 2 TO 4 12/24/2023 N/A S4497-EOVQCRWK DYSTROPHIC NAILS ANY # 12/24/2023 N/A 65519-HAQV SKIN LESIONS, 2 TO 4 04/07/2024 N/A A5104-IZBCNVPV DYSTROPHIC NAILS ANY # 04/07/2024 N/A Encounters Encounter Location Date Provider Diagnosis [facility] [address] [address] 09/13/2023 Suri Black Type 2 diabetes mellitus with diabetic polyneuropathy E11.[address] [facility] [address] 12/24/2023 Suri Black Type 2 diabetes mellitus with diabetic polyneuropathy E11.42 and Ingrown nail L60.[address] [facility] [address] 04/07/2024 Suri Black Type 2 diabetes mellitus with diabetic polyneuropathy E11.42 ; Other hammer toe(s) (acquired), left foot M20.42 and Other hammer toe(s) (acquired), right foot M20.41 Assessments Encounter Date Diagnosis (ICD Code) Assessment Notes Treatment Notes Treatment Clinical Notes Section Notes 09/13/2023 Type 2 diabetes mellitus with diabetic polyneuropathy (ICD-10 - E11.42) 12/24/2023 Type 2 diabetes mellitus with diabetic polyneuropathy (ICD-10 - E11.42) 12/24/2023 Ingrown nail (ICD-10 - L60.0) 04/07/2024 Type 2 diabetes mellitus with diabetic polyneuropathy (ICD-10 - E11.42) 04/07/2024 Other hammer toe(s) (acquired), left foot (ICD-10 - M20.42) 04/07/2024 Other hammer toe(s) (acquired), right foot (ICD-10 - M20.41) Patient Educated with: DIABETIC FOOT CARE INSTRUCTIONS. pdf (DIABETIC FOOT CARE INSTRUCTIONS. pdf) Plan Of Treatment Pending Test Test Name Order Date X ray : Foot, left 3V 01/01/2018 28303-Ohjcpvrf Plate 10/31/2018 28987-Kgaumxew Plate 05/05/2019 19391-Htzjrntf Plate 11/17/2021 04855-Nlvbelqx Plate 12/24/2023 79118-Zadyewks Plate Each Additional 63481, J0702- INJECT or DRAIN, JOINT/BUR SA 04/02/2017 89734-FHMF SKIN LESIONS, 2 TO 4 04/30/20 17 78327-YIMT SKIN LESIONS, 2 TO 4 07/30/19 18 63411-PRUV SKIN LESIONS, 2 TO 4 10/16/19 18 92396-LSID SKIN LESIONS, 2 TO 4 01/02/20 18 30965-JWZK SKIN LESIONS, 2 TO 4 08/01/19 19 58864-GLWH SKIN LESIONS, 2 TO 4 03/07/20 18 26890-LFJK SKIN LESIONS, 2 TO 4 05/20/20 18 24061-QALG SKIN LESIONS, 2 TO 4 07/28/19 20 66487-KDRU SKIN LESIONS, 2 TO 4 04/26/20 20 75200-IXJW SKIN LESIONS, 2 TO 4 01/31/20 19 45328-RLNX SKIN LESIONS, 2 TO 4 05/05/20 19 08292-FJEJ SKIN LESIONS, 2 TO 4 07/29/19 21 66661-FDXJ SKIN LESIONS, 2 TO 4 11/02/19 21 95186-MPNR SKIN LESIONS, 2 TO 4 01/21/20 21 03730-XQUF SKIN LESIONS, 2 TO 4 04/28/20 21 79496-WPWE SKIN LESIONS, 2 TO 4 04/07/20 24 17242-WJMP SKIN LESIONS, 2 TO 4 12/24/19 24 77574-OXHC SKIN LESIONS, 2 TO 4 06/04/20 14299-XSLL SKIN LESIONS, 2 TO 4 09/13/19 73342-TMTF SKIN LESIONS, 2 TO 4 02/17/20 36996-OHFR SKIN LESIONS, 2 TO 4 08/11/19 08387-MRBB SKIN LESIONS, 2 TO 4 11/01/19 08492-VHCR SKIN LESIONS, 2 TO 4 11/18/19 04845-IRGZ SKIN LESIONS, 2 TO 4 05/18/20 40810-ZBLQ SKIN LESIONS, 2 TO 4 08/24/19 45420-CYSH SKIN LESIONS, 2 TO 4 11/17/19 01981-WPIE SKIN LESIONS, 2 TO 4 02/23/20 98016-RFFE NAIL(S) 08/24/2022 35084-ICAS NAIL(S) 05/18/2022 77057-IYPE NAIL(S) 08/11/2021 31089-RSUM NAIL(S) 02/16/2022 03461-GYKY NAIL(S) 11/17/2021 37895-NSPC NAIL(S) 04/28/2021 18537-IFNU NAIL(S) 01/20/2021 74203-AWMI NAIL(S) 11/01/2020 33019-QKCJ NAIL(S) 07/29/2020 92755-ULXC NAIL(S) 05/05/2019 76670-RPUN NAIL(S) 01/30/2019 85819-AIHW NAIL(S) 04/26/2020 30211-SNPT NAIL(S) 07/28/2019 30297-HXMY NAIL(S) 05/20/2018 33656-APTZ NAIL(S) 03/07/2018 35825-ICLA NAIL(S) 08/01/2018 36986-DRAG NAIL(S) 10/31/2018 42211-GPFV NAIL(S) 01/01/2018 50543-XVDF NAIL(S) 10/15/2017 43815-LCID NAIL(S) 07/30/2017 01236-DQRJ NAIL(S) 04/30/2017 I5134-ZBPKMOPJ DYSTROPHIC NAILS ANY # N9559-WFINQKVX DYSTROPHIC NAILS ANY # N7453-RQEAHTCG DYSTROPHIC NAILS ANY # B0779-RFHAZSVY DYSTROPHIC NAILS ANY # N3009-EILJWEUD DYSTROPHIC NAILS ANY # F8590-GOFNORTV DYSTROPHIC NAILS ANY # Next Appt Details Provider Name:Suri Kerr , 07/24/2024 11:30:00 AM, [address] [place], [address], Insurance Providers Payer Name Payer Address Payer Phone Subscriber Number Group Number Insured Name Patient Relationship to Insured Coverage Start Date Coverage End Date Medicare [employer] [address] [place] [address] [id number] Gail Disla Self - patient is the insured [facility] [address] [place] [address] [phone] [id number] Gail Disla Self - patient is the insured Medical (General) History Medical History History ICD Code Back,Hip,and Knee pain CAD (Cholesterol) Diabetic Gall bladder problems High blood pressure Osteoporosis Scarlet fever Measles Mumps Chicken pox Surgical History Surgery Date(Month/Year) Appendectomy 10/2004 Gall bladder 2012 Carotid 11/2005 biopsy 01/2024
--- OUTSIDE RECORDS SUMMARY | 2024-07-04 08:26 | XMS_ITS ---
Author Organization [facility] starla Bullard Address [address] [place] [address] Care Team Providers Care Field Hauler Name Role Phone Clyde COTE, Trever Primary Care Provider Unavailabl e Black, Suri Unavailable [phone] Allergies Allergen (clinical drug ingredient) Drug/Non Drug [...] Active rofecoxib Rofecoxib Unknown Drug Allergy Active REASON FOR VISIT At Risk Footcare, Ingrown Nail Medications Medication SIG (Take, Route, Frequency, Duration) Notes Start Date End Date Status Physical Therapy . . . 2-3x/week for 3- 4 weeks 07/30/2017 Not-Taking Physical Therapy . . . 2-3x/week for 3- 4 weeks 01/01/2018 Not-Taking Simvastatin 20 MG Orally Once a day Not-Taking Physical Therapy 3-4x per week for 3- 4 weeks 06/14/2017 Not-Taking hydroCHLOROthiazide 12.5 MG Orally Once a day Not-Taking Night Splint AFO - L1930 as directed 03/07/2018 Not-Taking Extra Depth Orthopedic Shoes (1 Pair) with Customized Heat Molded Multidensity Innersoles (3 Pair) as directed Dx: NIDDM/Polyneuropathy (E11.42), Hammertoe Foot Deformity (M20.41,M20.42), Preulcerative Skin Lesion(s) (L85.1 08/01/2017 Not-Taking Extra Depth Orthopedic Shoes (1 Pair) with Customized Heat Molded Multidensity Innersoles (3 Pair) as directed Dx: NIDDM/Polyneuropathy (E11.42), Hammertoe Foot Deformity (M20.41,M20.42), Preulcerative Skin Lesion(s) (L85.1 Not-Taking Extra Depth Orthopedic Shoes (1 Pair) with Customized Heat Molded Multidensity Innersoles (3 Pair) as directed Dx: NIDDM/Polyneuropathy (E11.42), Hammertoe Foot Deformity (M20.41,M20.42), Preulcerative Skin Lesion(s) (L85.1 08/01/2018 Not-Taking Atenolol 25 MG Orally Once a day Not-Taking Jamie Brace . . . . for . 07/30/2017 No t-Taking ASO Ankle/Foot Stablizing AFO As directed Wear Daily for as needed 05/31/2017 Not-Taking Rosuvastatin Calcium 40 MG 1 tablet Oral ly Once a day for 30 day(s) Active Extra Depth Orthopedic Shoes (1 Pair) with Customized Heat Molded Multidensity Innersoles (3 Pair) as directed Dx: NIDDM/Polyneuropathy (E11.42), Hammertoe Foot Deformity (M20.41,M20.42), Preulcerative Skin Lesion(s) (L85.1 02/22/2023 Not-Taking Extra Depth Orthopedic Shoes (1 Pair) with Customized Heat Molded Multidensity Innersoles (3 Pair) as directed Dx: NIDDM/Polyneuropathy (E11.42), Hammertoe Foot Deformity (M20.41,M20.42), Preulcerative Skin Lesion(s) (L85.1 11/17/2021 Active Flax Oil Xtra Active Aspirin 81 MG Orally Once a day Active Lisinopril 10 MG Orally Once a day Active metFORMIN HCl 500 MG 1 tablet with meals Orally Twice a day Active Probiotic once daily Active Vitamin D3 Active Social History Tobacco Use: Social History Observation Description Date Details (start date - stop date) Former Smoker NA - NA Tobacco Use/Smoking Question Answer Notes Are you a: former smoker How long has it been since you last smoked? < 1 month Additional Findings: Tobacco Non-User Current no n-smoker Tobacco use other than smoking: Question Answer Notes Are you an other tobacco user? No Section Notes: . Vital Signs Height 5 ft 1 in in 12/24/2023 Weight 164 lbs 12/24/2023 BMI 30.98 kg/m2 12/24/2023 Blood pressure systolic 130 mm Hg 12/24/19 Blood pressure diastolic 74 mm Hg 024 Procedures Procedure Date Ordered Date Performed Result Body Sit e 13548-Qcoyhtqj Plate 12/24/2023 N/A 34637-YZRK SKIN LESIONS, 2 TO 4 12/24/2023 N/A T4041-NWZRLKNY DYSTROPHIC NAILS ANY # 12/24/2023 N/A Encounters Encounter Location Date Provider Diagnosis [facility] [address] [address] 12/24/2023 Suri Kerr Type 2 diabetes mellitus with diabetic polyneuropathy E11.42 and Ingrown nail L60.0 Assessments Encounter Date Diagnosis (ICD Code) Assessment Notes Treatment Notes Treatment Clinical Notes Section Notes 12/24/2023 Type 2 diabetes mellitus with diabetic polyneuropathy (ICD-10 - E11.42) 12/24/2023 Ingrown nail (ICD-10 - L60.0) Plan Of Treatment Pending Test Test Name Order Date 69060-Tqhywhud Plate 12/24/2023 29992-ODZV SKIN LESIONS, 2 TO 4 12/24/19 R0952-WCDKYKON DYSTROPHIC NAILS ANY # Next Appt Details Follow Up: 2 Weeks, Reason: Provider Name:Suri Kerr , 07/24/2024 11:30:00 AM, [address] [place] [address], [phone], Procedure Notes * Category Sub-Category Detail Notes Nail Avulsion Procedure A fine sterile e levator was placed between the eponychium, nail fold, and nail plate to separate the structures. A sterile nail splitter, and/or sterile 316 blade, was then used to longitudinally section the nail along its entire length through the eponychium to the area under the nail fold. The offending portion of nail was from the nail bed with a rolling action and then removed with a hemostat. No underlying bone was identified. There was minimal bleeding as hemostasis was achieved through the temporary use of either a digital tourniquet or the aforementioned local with epinephrine. A bacitracin sterile dressing was applied. Local wound aftercare instructions were discussed and dispensed. The patient was informed of both conservative and future surgical procedures to prevent recurrence. Tylenol or Motrin was recommended for pain or discomfort (10562) , DIABETES: Matricectomy deferred at this time due to diabetes risk Anesthesia was deferred - NEURO MACY: patient has medically documented neuropathic condition affecting sensation Location Lateral nail border , T5 Keratoma Treatment Parring or Cutting o f Benign Hyperkeratotic Lesion(s) 41394 (2-4 Lesions) - The Benign hyperkeratotic lesions, as described above were pared, and/or cut utilizing a sterile #15 blade, tissue nippers, and/or dremel Nail Reduction Nail Reduction Trimming of dyst rophic nails performed to reduce/remove overall nail length and girth, by manual and electrical means with use of a nail nipper and/or dremel, to more viable healthy nail plate or bed tissue 6-10 (G0127) Progress Notes * Erma DISLAMelonieB:1935 ([age] yo F)Acc No.[id number]:12/24/2023 Progress Note Patient:?Gail Disla Provider:?Suri Kerr DPM :1935???Age:88 Y???Sex:Female D ate:12/24/2023 Address:[address] [place], [place] [id number] Pcp:Trever Tang MD Subjective: * Chief Complaints: * ???At Risk FootcareIngrown N ail * HPI: ???At Risk footcare:?Pt States Last PCP Visit:?Date?12/17/2023 * Medical History:? * Surgical History:?Appendecto my 10/2004Gall bladder 2012Carotid 11/2005 * Hospitalization/Major Diagno stic Procedure:?Denies Past Hospitalization * Family History:?Mother: dece ased, diagnosed with Diabetic - NIDDM.?Father: .?Maternal aunt: unknown, diagnosed with Other malignant neoplasm of unspecified site.?Maternal uncle: unknown, diagnosed with Other malignant neoplasm of unspecified site.? * Social History:?Tobacco Use:?Tobacco Use/Smoking?Are you a:?former smoker ?How long has it been since you last smoked??< 1 month ?Additional Findings: Tobacco Non-User?Current non-smoker ?Tobacco use other than smoking?Are you an other tobacco user??No ???. * Medications:?TakingVitamin D 3 Flax Oil Xtra Lisinopril 10 MG Tablet Orally Once a dayAspirin 81 MG Tablet Chewable Orally Once a dayProbiotic once dailymetFORMIN HCl 500 MG Tablet 1 tablet with meals Orally Twice a dayRosuvastatin Calcium 40 MG Tablet 1 tablet Orally Once a dayExtra Depth Orthopedic Shoes (1 Pair) with Customized Heat Molded Multidensity Innersoles (3 Pair) as directed Dx: NIDDM/Polyneuropathy (E11.42), Hammertoe Foot Deformity (M20.41,M20.42), Preulcerative Skin Lesion(s) (L85.1Taking Vitamin D3 Taking Flax Oil Xtra Taking Lisinopril 10 MG Tablet Orally Once a dayTaking Aspirin 81 MG Tablet Chewable Orally Once a dayTaking Probiotic once dailyTaking metFORMIN HCl 500 MG Tablet 1 tablet with meals Orally Twice a dayTaking Rosuvastatin Calcium 40 MG Tablet 1 tablet Orally Once a dayTaking Extra Depth Orthopedic Shoes (1 Pair) with Customized Heat Molded Multidensity Innersoles (3 Pair) as directed Dx: NIDDM/Polyneuropathy (E11.42), Hammertoe Foot Deformity (M20.41,M20.42), Preulcerative Skin Lesion(s) (L85.1Not-Taking/PRNExtra Depth Orthopedic Shoes (1 Pair) with Customized Heat Molded Multidensity Innersoles (3 Pair) as directed Dx: NIDDM/Polyneuropathy (E11.42), Hammertoe Foot Deformity (M20.41,M20.42), Preulcerative Skin Lesion(s) (L85.1ASO Ankle/Foot Stablizing AFO As directed Wear DailyRichie Brace . . . . .Extra Depth Orthopedic Shoes (1 Pair) with Customized Heat Molded Multidensity Innersoles (3 Pair) as directed Dx: NIDDM/Polyneuropathy (E11.42), Hammertoe Foot Deformity (M20.41,M20.42), Preulcerative Skin Lesion(s) (L85.1Night Splint AFO - L1930 as directed Extra Depth Orthopedic Shoes (1 Pair) with Customized Heat Molded Multidensity Innersoles (3 Pair) as directed Dx: NIDDM/Polyneuropathy (E11.42), Hammertoe Foot Deformity (M20.41,M20.42), Preulcerative Skin Lesion(s) (L85.1Extra Depth Orthopedic Shoes (1 Pair) with Customized Heat Molded Multidensity Innersoles (3 Pair) as directed Dx: NIDDM/Polyneuropathy (E11.42), Hammertoe Foot Deformity (M20.41,M20.42), Preulcerative Skin Lesion(s) (L85.1Atenolol 25 MG Tablet Orally Once a daySimvastatin 20 MG Tablet Orally Once a dayPhysical Therapy . . . . 2- 3x/weekhydroCHLOROthiazide 12.5 MG Capsule Orally Once a dayPhysical Therapy 3-4x per week for 3-4 weeks Physical Therapy . . . . 2-3x/weekMedication List reviewed and reconciled with the patientNot-Taking/PRN Extra Depth Orthopedic Shoes (1 Pair) with Customized Heat Molded Multidensity Innersoles (3 Pair) as directed Dx: NIDDM/Polyneuropathy (E11.42), Hammertoe Foot Deformity (M20.41,M20.42), Preulcerative Skin Lesion(s) (L85.1Not-Taking/PRN ASO Ankle/Foot Stablizing AFO As directed Wear DailyNot-Taking/PRN Jamie Brace . . . . .Not-Taking/PRN Extra Depth Orthopedic Shoes (1 Pair) with Customized Heat Molded Multidensity Innersoles (3 Pair) as directed Dx: NIDDM/Polyneuropathy (E11.42), Hammertoe Foot Deformity (M20.41,M20.42), Preulcerative Skin Lesion(s) (L85.1Not-Taking/PRN Night Splint AFO - L1930 as directed Not-Taking/PRN Extra Depth Orthopedic Shoes (1 Pair) with Customized Heat Molded Multidensity Innersoles (3 Pair) as directed Dx: NIDDM/Polyneuropathy (E11.42), Hammertoe Foot Deformity (M20.41,M20.42), Preulcerative Skin Lesion(s) (L85.1Not-Taking/PRN Extra Depth Orthopedic Shoes (1 Pair) with Customized Heat Molded Multidensity Innersoles (3 Pair) as directed Dx: NIDDM/Polyneuropathy (E11.42), Hammertoe Foot Deformity (M20.41,M20.42), Preulcerative Skin Lesion(s) (L85.1Not-Taking/PRN Atenolol 25 MG Tablet Orally Once a dayNot-Taking/PRN Simvastatin 20 MG Tablet Orally Once a dayNot-Taking/PRN Physical Therapy . . . . 2-3x/weekNot-Taking/PRN hydroCHLOROthiazide 12.5 MG Capsule Orally Once a dayNot-Taking/PRN Physical Therapy 3-4x per week for 3-4 weeks Not-Taking/PRN Physical Therapy . . . . 2-3x/weekMedication List reviewed and reconciled with the patient * Allergies:?BactrimMorphineCodeineAdhesiveLipitorPercocetCelebrexPercodanPhenylep hrineRofecoxibLatex: AllergyPenicillin: AllergyGlimepiride: hives - Allergyyes[Allergies Verified] Objective: * Vitals:?Ht: 5 ft 1 in, Wt: 1 64, BMI: 30.98, Shoe size: 8.5-9, BP: 130/74 mm Hg, BS: 121, Ht-cm: 154.94 cm, Wt-k.39 kg. * ???Past Orders: ???Lab:HEMOGLOBIN A1C (GLYCO HEMOGLOBIN) (Order Date - 09/03/2023) (Collection Date - 09/03/2023) ? Value Reference Range ?HEMOGLOBIN A1C (HH) 6.7 * Examination: ???Ophthalmology Referral: ?DIABETES EYE EXAM?Neurological: ?SENSORY:?Neurological exam demonstrates, reduced light touch sensation, reduced sharp/dull pin prick discrimination , reduced vibration sensation, 5.07 monofilament test performed at plantar aspects of 5 varied sites per foot shows sensation, absent, at Forefoot, B/L, Pt relates, anesthesia.?Nails: ?NAILS are:?Elongated, overgrown, dystrophic, 2-5 B/L.?Ingrown Nail: ?INSPECTION:?Reveals nail incurvation, pain on palpation, groove hypertrophy , groove ischemia , Lateral nail border , T5.?Dermatologic: ?SKIN FINDINGS:?Skin exam reveals keratotic lesion(s) located at, , Heel(s), B/L , TA , T5, Medial plantar , SUB MTH (s), 1 , Left.? Assessment: * Assessment: 1.?Type 2 diabetes mellitus with diabetic polyneuropathy - E11.42?2.?Ingrown nail - L60.0? Plan: * Treatment: 2.?Ingrown nail?Procedure: 90273-Iauqbhaq Plate * Procedures:?Keratoma Treatment:?Parring or Cutting of Benign Hyperkeratotic Lesion(s)?14884 (2-4 Lesions) - The Benign hyperkeratotic lesions, as described above were pared, and/or cut utilizing a sterile #15 blade, tissue nippers, and/or dremel.?Nail Avulsion:?Location?Lateral nail border , T5.?Anesthesia?was deferred - NEUROPATHY: patient has medically documented neuropathic condition affecting sensation.?Procedure?A fine sterile elevator was placed between the eponychium, nail fold, and nail plate to separate the structures. A sterile nail splitter, and/or sterile 316 blade, was then used to longitudinally section the nail along its entire length through the eponychium to the area under the nail fold. The offending portion of nail was from the nail bed with a rolling action and then removed with a hemostat. No underlying bone was identified. There was minimal bleeding as hemostasis was achieved through the temporary use of either a digital tourniquet or the aforementioned local with epinephrine. A bacitracin sterile dressing was applied. Local wound aftercare instructions were discussed and dispensed. The patient was informed of both conservative and future surgical procedures to prevent recurrence. Tylenol or Motrin was recommended for pain or discomfort (62128) , DIABETES: Matricectomy deferred at this time due to diabetes risk.?Nail Reduction:?Nail Reduction?Trimming of dystrophic nails performed to reduce/remove overall nail length and girth, by manual and electrical means with use of a nail nipper and/or dremel, to more viable healthy nail plate or bed tissue 6-10 (G0127).? * Procedure Codes:?68256 TRIM SKIN LESIONS, 2 TO 4, Modifiers: XS 27537 Avulsion Plate, Modifiers: T5 G0127 TRIMMING DYSTROPHIC NAILS ANY #, Modifiers: XS * Follow Up:?2 Weeks * Images: * Sign off status: Completed true * Provider:?Suri Kerr DPM Date:?2023 Generated for Sudhir murry/Sebastián/Huy on:?07/04/2024 08:26 AM EST History and Physical Notes * HPI (History of Present Illness) Category Sub-Category Detail Notes Category Not es At Risk footcare Pt States Last PCP Visit: Date: 4 Examination Category Sub-Category Detail Notes Category Not es Ingrown Nail INSPECTION: Reveals nail inc urvation, pain on palpation, groove hypertrophy , groove ischemia , Lateral nail border , T5 Neurological SENSORY: Neurological exa m demonstrates, reduced light touch sensation, reduced sharp/dull pin prick discrimination , reduced vibration sensation, 5.07 monofilament test performed at plantar aspects of 5 varied sites per foot shows sensation, absent, at Forefoot, B/L, Pt relates, anesthesia Dermatologic SKIN FINDINGS: Skin exam reveal s keratotic lesion(s) located at, , Heel(s), B/L , TA , T5, Medial plantar , SUB MTH (s), 1 , Left Ophthalmology Referral DIABETES EYE EXAM Diabeti c Retinopathy Screening:: Yes Findings of Diabetic Eye Exam:: no retin opathy Nails NAILS are: Elongated, overgrown, dystro phic, 2-5 B/L
--- OUTSIDE RECORDS SUMMARY | 2024-07-04 08:26 | XMS_ITS ---
[facility] Organization [facility] Address [address] [place] [address] Care Team Providers Care School Cleaner Name Role Phone Clyde COTE, Trever Primary Care Provider Unavailabl e Black, Suri Unavailable [phone] Allergies Allergen (clinical drug ingredient) Drug/Non Drug [...] Allergy Active REASON FOR VISIT At Risk Footcare Medications Medication SIG (Take, Route, Frequency, Duration) Notes Start Date End Date Status Simvastatin 20 MG Orally Once a day Not-Taking hydroCHLOROthiazide 12.5 MG Orally Once a day Not-Taking Physical Therapy . . . 2-3x/week for 3- 4 weeks 01/01/2018 Not-Taking Physical Therapy . . . 2-3x/week for 3- 4 weeks 07/30/2017 Not-Taking Physical Therapy 3-4x per week for 3- 4 weeks 06/14/2017 Not-Taking Extra Depth Orthopedic Shoes (1 Pair) with Customized Heat Molded Multidensity Innersoles (3 Pair) as directed Dx: NIDDM/Polyneuropathy (E11.42), Hammertoe Foot Deformity (M20.41,M20.42), Preulcerative Skin Lesion(s) (L85.1 08/01/2018 Not-Taking Night Splint AFO - L1930 as directed 03/07/2018 Not-Taking Atenolol 25 MG Orally Once a day Not-Taking Extra [...] (M20.41,M20.42), Preulcerative Skin Lesion(s) (L85.1 11/17/2021 Active Rosuvastatin Calcium 40 MG 1 tablet Oral ly Once a day for 30 day(s) Active ASO Ankle/Foot Stablizing AFO As directed Wear Daily for as needed 05/31/2017 Not-Taking Extra Depth Orthopedic Shoes (1 Pair) with Customized Heat Molded Multidensity Innersoles (3 Pair) as directed Dx: NIDDM/Polyneuropathy (E11.42), Hammertoe Foot Deformity (M20.41,M20.42), Preulcerative Skin Lesion(s) (L85.1 02/22/2023 Not-Taking Jamie Brace . . . . for . 07/30/2017 No t-Taking metFORMIN HCl 500 MG 1 tablet with meals Orally Twice a day Active Lisinopril 10 MG Orally Once a day Active Flax Oil Xtra Active Probiotic once daily Active Aspirin 81 MG Orally Once a day Active Vitamin D3 Active Social History Tobacco [...] Signs Height 5 ft 1 in in 09/13/2023 Weight 160 lbs 09/13/2023 BMI 30.23 kg/m2 09/13/2023 Blood pressure systolic 140 mm Hg 09/13/19 24 Blood pressure diastolic 72 mm Hg 024 Procedures Procedure Date Ordered Date Performed Result Body Sit e 53925-LSUE SKIN LESIONS, 2 TO 4 09/13/2023 N/A L0759-JRFJHGUU DYSTROPHIC NAILS ANY # 09/13/2023 N/A Encounters Encounter Location Date Provider Diagnosis [facility] [address] [address] 09/13/2023 Suri Kerr Type 2 diabetes mellitus with diabetic polyneuropathy E11.42 Assessments Encounter Date Diagnosis (ICD Code) Assessment Notes Treatment Notes Treatment Clinical Notes Section Notes 09/13/2023 Type 2 diabetes mellitus with diabetic polyneuropathy (ICD-10 - E11.42) Plan Of Treatment Pending Test Test Name Order Date 66124-XANS SKIN LESIONS, 2 TO 4 09/13/19 24 T2541-FZJSNXYE DYSTROPHIC NAILS ANY # Next Appt Details Follow Up: prn, Reason: Provider Name:Suri Kerr , 07/24/2024 11:30:00 AM, [address] [place] [address], [phone], Procedure Notes * Category Sub-Category Detail Notes Keratoma Treatment Parring or Cutting o f Benign Hyperkeratotic Lesion(s) 49801 (2-4 Lesions) - The Benign hyperkeratotic lesions, [...] bed tissue 6-10 (G0127) Progress Notes * Izabella DISLAB:1935 ([age] yo F)Acc No.[id number]:09/13/2023 Progress Note Patient:?Gail Disla Provider:?Suri Kerr DPM :1935???Age:88 Y???Sex:Female D ate:09/13/2023 Address:[address] [place] [address] Pcp:Trever Tang MD Subjective: * Chief Complaints: * ???At Risk Footcare * HPI: ???At Risk footcare:?Pt States Last PCP Visit:?Date?09/03/2023 * Medical History:? * Surgical History:?Appendecto my [...] than smoking?Are you an other tobacco user??No ???Drugs/Alcohol:?Drugs?Have you used drugs other than those for medical reasons in the past 12 months??No ?Alcohol Screen?Did you have a drink containing alcohol in the past year??No ?Points?0 ?Interpretation?Negative ???Miscellaneous:?Caffeine: yes, frequency:,decaff 1-2 cups per day. ?Children: yes, 2. ?Exercise: yes, housework, walking. ?Marital status: . ?Occupation: Retired-[employer]. ???. * Medications:?TakingVitamin D 3 Flax Oil [...] Vitals:?Ht: 5 ft 1 in, Wt: 1 60, BMI: 30.23, Shoe size: 8.5-9, BP: 140/72 mm Hg, BS: 112, Ht-cm: 154.94 cm, Wt-k.57 kg. * ???Past Orders: ???Lab:HEMOGLOBIN A1C (GLYCO [...] relates, anesthesia.?Nails: ?NAILS are:?Elongated, overgrown, dystrophic, 2-5 B/L.?Dermatologic: ?SKIN FINDINGS:?Skin exam reveals keratotic lesion(s) located at, , Heel(s), B/L , TA , T5, Medial plantar.? Assessment: * Assessment: 1.?Type 2 diabetes mellitus with diabetic polyneuropathy - E11.42? Plan: * Treatment: * Procedures:?Keratoma Treatment:?Parring or Cutting of Benign Hyperkeratotic Lesion(s)?05506 (2-4 Lesions) - The Benign hyperkeratotic lesions, as described above were pared, and/or cut utilizing a sterile #15 blade, tissue nippers, and/or dremel.?Nail Reduction:?Nail Reduction?Trimming of dystrophic nails performed to reduce/remove overall nail length and girth, by manual and electrical means with use of a nail nipper and/or dremel, to more viable healthy nail plate or bed tissue 6-10 (G0127).? * Procedure Codes:?30413 TRIM SKIN LESIONS, 2 TO 4, Modifiers: XS G0127 TRIMMING DYSTROPHIC NAILS ANY #, Modifiers: XS * Follow Up:?prn * Images: * Sign off status: Completed true * Provider:?Suri Kerr DPM Date:?2023 Generated for Sudhir murry/Sebastián/Huy on:?07/04/2024 08:26 AM EST History and Physical Notes * HPI (History of Present Illness) Category Sub-Category Detail Notes Category Not es At Risk footcare Pt States Last PCP Visit: Date: Examination Category Sub-Category Detail Notes Category Not es Ingrown Nail INSPECTION: Neurological SENSORY: Neurological exa m demonstrates, reduced light touch sensation, reduced sharp/dull pin prick discrimination , reduced vibration sensation, 5.07 monofilament test performed at plantar aspects of 5 varied sites per foot shows sensation, absent, at Forefoot, B/L, Pt relates, anesthesia Dermatologic SKIN FINDINGS: Skin exam reveal s keratotic lesion(s) located at, , Heel(s), B/L , TA , T5, Medial plantar Ophthalmology Referral DIABETES EYE EXAM Diabeti c Retinopathy Screening:: Yes Findings of Diabetic Eye Exam:: no retin opathy Nails NAILS are: Elongated, overgrown, dystro phic, 2-5 B/L
--- OUTSIDE RECORDS SUMMARY | 2024-07-04 08:26 | XMS_ITS | Data Portability ---
Author Organization [place] [facility], Allergy Address [address] [place] [address] Care Team Providers Care Judicial Registrar Name Role Phone IRAIS KATHERINE Primary Care Provider [phone] KATHERINE BRAXTON Referring Provider [phone] Assessment No assessment recorded. Plan of Treatment Reminders Order Date Submit Date Provider Last Modified By Organization Details Last Modified Time Details Appointments None record ed. Lab None record ed. Referral None record ed. Procedures None record ed. Surgeries None record ed. Imaging None record ed. Medication Orders None record ed. Patient TargetsNo targets recorded. Patient InstructionsNo instructions recorded. Reason for Referral None Reported. Results Created Date Observation Date Name Description Value Unit Range Abnormal Flag Note LastModifiedBy Organization Detail LastModifiedTime 11/23/1904/04/2023 US, thyro id No observ ation record ed. BARCODE Not Available 2023 17:33:35 12/12/1904/04/2023 US, thyro id No observ ation record ed. [email or web address] Not Available 11/30 12:11:45 12/14/1904/04/2023 CT, neck, soft tissu e, w/ contr ast No observ ation record ed. [email or web address] Not Available 11/30 14:43:37 Result Notes None recorded. Problems Name Problem SNOMED Code Status Onset Date Resolution Date Notes Provider Name and Address Organization Details Recorded Time Acute sialoadenitis 240969080 Active 2023 SHANDRA HART MD [address], [address], [facility] 12:29:37 Sialolithiasis 00636788 Active 2023 SHANDRA HART MD [address], [address], [facility] 12:29:41 Problem Notes None recorded. Procedures Surgical History Date Name Laterality Status Provider Name and Address Organization Details Recorded Time 07/02/19 05 Appendectomy completed Rashad Santiago [facility] 11/29/2023 15:17:31 07/02/18 80 operation on gallbladder completed Rashad Santiago [facility] 11/29/2023 15:17:11 bilateral cataract surgery completed Rashad Santiago [facility] 11/29/2023 15:18:37 Imaging Results Imaging Date Name Status LastModified by Organiz ation Details LastModified Time 04/04/2023 US, thyroid completed BARCODE Information n ot available 11/23/2023 17:33:35 04/04/2023 US, thyroid completed Information not available 12/12/2023 12:11:45 04/04/2023 CT, neck, soft tissue, w/ contrast completed Information not available 12/14/2023 14:43:37 Procedure Notes None recorded. Medical Equipment None Reported. Allergies Allergen ID Allergen Name Allergen Category Reaction Reaction Severity Criticality Documentation Date Start Date Code Code System Note Provider Name and Address Organization Details Recorded Time 011064 sulfabenz amide Not available Not available Not available Not available 11/29/2023 20575 RxNorm Rashad Santiago [facility] 15:16:42 Medications Name Sig Start Date Stop Date Status Note LastModified by Organization Details LastModified Time metformin 500 mg tablet TAKE 2 TABLETS BY MOUTH TWICE DAILY active Not Available Not Available No t Available cetirizine 10 mg tablet TAKE 1 TABLET BY MOUTH EVERY DAY active Not Available Not Available No t Available azithromyci n 250 mg tablet active Not Available Not Available Not Available benzonatate 200 mg capsule TAKE 1 CAPSULE BY MOUTH THREE TIMES DAILY FOR 14 DAYS NEEDED active Not Available Not Available No t Available glimepiride 2 mg tablet TAKE 1 TABLET BY MOUTH EVERY DAY IN THE MORNING active Not Available Not Available No t Available cephalexin 500 mg capsule TAKE 1 CAPSULE BY MOUTH EVERY 6 HOURS FOR 7 DAYS active Not Available Not Available No t Available fluoxetine 10 mg capsule TAKE 1 CAPSULE BY MOUTH EVERY DAY DIRECTED active Not Available Not Available No t Available diclofenac sodium 75 mg tablet,linsey yed release TAKE 1 TABLET BY MOUTH TWICE DAILY NEEDED active Not Available Not Available No t Available lisinopril 5 mg tablet TAKE 1 TABLET BY MOUTH EVERY DAY DIRECTED active Not Available Not Available No t Available methylpredn isolone 4 mg tablets in a dose pack FOLLOW PACKAGE DIRECTION S 11/28 completed Not Available Not Available Not Available rosuvastati n 40 mg tablet TAKE 1 TABLET BY MOUTH EVERY DAY active Not Available Not Available No t Available FreeStyle Lite Strips USE DIRECTED TO TEST BLOOD SUGAR DAILY active Not Available Not Available No t Available Vitals Date Recorded Body height Body mass index (BMI) Body weight Provider Name and Address Organization Details Last Updated DateTime 11/29/2023 157.48 cm 29.3 kg/m2 84217.78 g Rashad Santiago [place] [facility] 11/29/2023 15:21:09 Social History None recorded. Functional Status None recorded. Mental Status None recorded. Family History Nothing Reported. Medical History Condition Response Diabetes Y Arthritis Y Anxiety Y Hypertension Y Gynecological HistoryNo gynecological history recorded. Obstetrics History GPAL:G 0 P 0 0 0 0 Past Encounters Encounter ID Performer Location Encounter Start Date Encounter Closed Date Diagnosis/Indication Diagnosis SNOMED-CT Code Diagnosis ICD10 Code 2117 SHANDRA HART MD [facility] [address] [place] [address] 11/29/2023 14:44:47 11/29/2023 15:54:04 Acute sialoadenitis 599875952 K11.21 Sialolithiasis 99499292 K11.5 Health Concerns Section Related Observation LastModified by Organization Detai ls LastModified Time None Recorded Concern Status LastModified by Organization Details LastModified Time None Recorded Advance Directives Directive None Recorded Payers Encounter Date Sequence Insurance Name Policy Number Policy Chan Covered Member ID Chan Member ID Guarantor Name 11/29/2023 2 [place] [id number] Lipscomb D Nighat [id number] Lipscomb D Nighat 11/29/2023 1 [place] [employer] Lipscomb D Nighat [id number] Gail D Nighat Notes Date Note Type Note Provider Name and Address Organization Details Recorded Time 11/29/2023 text/html 88-year-old ryan varela presents today for evaluation of sialoadenitis. Thankfully since she made the appointment her symptoms have resolved after 2 courses of antibiotics including azithromycin and cefazolin. She has had symptoms of sialolithiasis over the years. She has had acute sialoadenitis periodically through the years, none requiring hospitalization. She did see Dr. Martins about 10 years ago. She had a CT scan at [facility] which I was able to review showing focal calcifications on the right parotid. SHANDRA HART MD [address] [place] [address], [place], [address], [facility] - [facility] 12/02/2023 12:34:03 OBGyn Episode No OBEpisode recorded.
--- OUTSIDE RECORDS SUMMARY | 2024-07-04 08:26 | XMS_ITS ---
[facility] [place] Address [address] [place] [address] Care Team Providers Care Compliance Reviewer Name Role Phone Clyde COTE, Trever Primary Care Provider Unavailabl e Black, Suri Unavailable [phone] Allergies Allergen (clinical drug ingredient) Drug/Non Drug [...] Active REASON FOR VISIT At Risk Footcare, Toe Irritation Medications Medication SIG (Take, Route, Frequency, Duration) Notes Start Date End Date Status Vitamin D3 Active Extra Depth Orthopedic Shoes (1 Pair) with Customized Heat Molded Multidensity Innersoles (3 Pair) as directed Dx: NIDDM/Polyneuropathy (E11.42), Hammertoe Foot Deformity (M20.41,M20.42), Preulcerative Skin Lesion(s) (L85.1 04/07/2024 Active Probiotic once daily Active Aspirin 81 MG Orally Once a day Active Lisinopril 10 MG Orally Once a day Active Physical Therapy . . . 2-3x/week for 3- 4 weeks 07/30/2017 Not-Taking Physical Therapy 3-4x per week for 3- 4 weeks 06/14/2017 Not-Taking hydroCHLOROthiazide 12.5 MG Orally Once a day Not-Taking Physical Therapy . . . 2-3x/week for 3- 4 weeks 01/01/2018 Not-Taking Simvastatin 20 MG Orally Once a day Not-Taking Extra Depth Orthopedic Shoes (1 Pair) with Customized Heat Molded Multidensity Innersoles (3 Pair) as directed Dx: NIDDM/Polyneuropathy (E11.42), Hammertoe Foot Deformity (M20.41,M20.42), Preulcerative Skin Lesion(s) (L85.1 08/01/2017 Not-Taking Atenolol 25 MG Orally Once a [...] AFO - L1930 as directed 03/07/2018 Not-Taking Jamie Brace . . . . for . 07/30/2017 No t-Taking ASO Ankle/Foot Stablizing AFO As directed Wear Daily for as needed 05/31/2017 Not-Taking Extra Depth Orthopedic Shoes (1 Pair) with Customized Heat Molded Multidensity Innersoles (3 Pair) as directed Dx: NIDDM/Polyneuropathy (E11.42), Hammertoe Foot Deformity (M20.41,M20.42), Preulcerative Skin Lesion(s) (L85.1 02/22/2023 Not-Taking Flax Oil Xtra Not-Ta irma Extra Depth Orthopedic Shoes (1 Pair) with Customized Heat Molded Multidensity Innersoles (3 Pair) as directed Dx: NIDDM/Polyneuropathy (E11.42), Hammertoe Foot Deformity (M20.41,M20.42), Preulcerative Skin Lesion(s) (L85.1 11/17/2021 Active metFORMIN HCl 500 MG 1 tablet with meals Orally Twice a day Active Rosuvastatin Calcium 40 MG 1 tablet Oral ly Once a day for 30 day(s) Active Social History Tobacco Use: Social History [...] Signs Height 5 ft 1 in in 04/07/2024 Weight 164 lbs 04/07/2024 BMI 30.98 kg/m2 04/07/2024 Procedures Procedure Date Ordered Date Performed Result Body Sit e 17708-BTPK SKIN LESIONS, 2 TO 4 04/07/2024 N/A L0265-BMGSWVGA DYSTROPHIC NAILS ANY # 04/07/2024 N/A Encounters Encounter Location Date Provider Diagnosis [facility] [address] [address] 04/07/2024 Suri Black Type 2 diabetes mellitus with diabetic polyneuropathy E11.42 ; Other hammer toe(s) (acquired), left foot M20.42 and Other hammer toe(s) (acquired), right foot M20.41 Assessments Encounter Date Diagnosis (ICD Code) Assessment Notes Treatment Notes Treatment Clinical Notes Section Notes 04/07/2024 Type 2 diabetes mellitus with diabetic polyneuropathy (ICD-10 - E11.42) 04/07/2024 Other hammer toe(s) (acquired), left foot (ICD-10 - M20.42) 04/07/2024 Other hammer toe(s) (acquired), right foot (ICD-10 - M20.41) Patient Educated with: DIABETIC FOOT CARE INSTRUCTIONS. pdf (DIABETIC FOOT CARE INSTRUCTIONS. pdf) Plan Of Treatment Medication Medication Name Sig Start Date Stop Date Notes Extra Depth Orthopedic Shoes (1 Pair) with Customized Heat Molded Multidensity Innersoles (3 Pair) as directed Dx: NIDDM/Polyneuropathy (E11.42), Hammertoe Foot Deformity (M20.41,M20.42), Preulcerative Skin Lesion(s) (L85.1 04/07/2024 Treatment Notes Assessment Notes Other hammer toe(s) (acquired), right fo ot Patient Educated with: DIABETIC FOOT CARE INSTRUCTIONS.pdf (DIABETIC FOOT CARE INSTRUCTIONS.pdf) Pending Test Test Name Order Date 21546-FWSK SKIN LESIONS, 2 TO 4 04/07/20 24 J5104-VPVOGUKJ DYSTROPHIC NAILS ANY # Next Appt Details Follow Up: 3 Months, Reason: Provider Name:Suri Kerr , 07/24/2024 11:30:00 AM, [address] [place], [address], Procedure Notes * Category Sub-Category Detail Notes Keratoma Treatment Parring or Cutting o f Benign Hyperkeratotic Lesion(s) 71605 (2-4 Lesions) - The Benign hyperkeratotic lesions, [...] tissue 6-10 (G0127) Progress Notes * Erma DISLAaDOB:1935 ([age] yo F)Acc No.[id number]:04/07/2024 Progress Note Patient:?Gail Disla Provider:?Suri Kerr DPM :1935???Age:89 Y???Sex:Female D ate:04/07/2024 Address:[address] [place], [place] [id number] Pcp:Trever Tang MD Subjective: * Chief Complaints: * ???At Risk FootcareToe Irrit ation * HPI: ???At Risk footcare:?Pt States Last PCP Visit:?Date?01/30/2024 ???Toe pain:?Location:?B/L feet.?Duration:?several years.?Course:?worse.?Aggravated by:?shoes, any pressure.?Treatments:?change in shoes.? * ROS:?General/Constitutional:?Nausea?denies.?Vomiting?denies.?Hunger Thirst?denies.?Loss appetite?denies.?Chills?denies.?Fatigue?denies.?Fever?denies.?Night Sweats?denies.?Unexplained weight loss?denies.?Unexplained weight gain?denies.?HEENTM:?Dentures?denies.?Dizziness?denies.?Glasses/contacts?admits.?Retinopathy?de nies.?Blurred/double vision?denies.?TMJ?denies.?Discharge/drainage?denies.?Implants?denies.?Sore throat?denies.?Dental implants?denies.?Hard of hearing ?denies.?Difficulty chewing/swallowing/speaking?denies.?Nose bleeds?denies.?Sore mouth?denies.?Respiratory:?On Oxygen?denies.?Pneumonia/pleurisy?denies.?Bronchitis?denies.?Emphysema?denies.?C oughing?denies.?Cough blood?denies.?Shortness of breath?denies.?Wheezing?denies.?Cardiovascular:?Pacemaker?denies.?MVP?denies.?WPW?denies.?CHF?denies.?Heart attack?denies.?Septal defect?denies.?Rapid beat?denies.?Chest pain ?denies.?Atrial Fib.?denies.?Murmur/Palpitations?denies.?Gastrointestinal:?Hemorrhoids?denies.?Stomach/Abdominal pain?denies.?Dark blood stool?denies.?Irritable bowel ?denies.?Constipation?denies.?Diarrhea?denies.?Hematology:?Swelling?denies.?Clots?denies.?Varicose Veins?denies.?Bruising?denies.?Bleeding problem?denies.?Genitourinary:?Blood urine?denies.?Frequent/Painfu/urination/bladder control?denies.?Kidney stones?denies.?Infection (UTI)?denies.?Nephropathy?denies.?sex trans dis (STD)?denies.?Prostate?denies.?Musculoskeletal:?Hammertoes?admits.?Bunions?denies.?Back Pain?denies.?Muscle Cramps/ Resting?denies.?Muscle cramps / walking?denies.?Generalized aches and pains?denies.?Weakness?denies.?Integ.:?Rodriguez?denies.?Scars?denies.?Corns/calluses?admits.?Ingrown nails?denies.?Open Sores?denies.?Rashes?denies.?Neurologic:?Difficulty sleeping?denies.?Brain disorder?denies.?Numbness?denies.?Balance trouble?denies.?Confusion?denies.?Fainting/blackouts?denies.?Tingling?denies.?Tr emors?denies.? * Medical History:? * Surgical History:?Appendecto my 10/2004Gall bladder 2012Carotid 11/2005biopsy 01/2024 * Hospitalization/Major Diagno stic Procedure:?Denies Past Hospitalization [...] yes, housework, walking. ?Marital status: . 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 ???. * Medications:?TakingVitamin D 3 Lisinopril 10 MG Tablet Orally Once a [...] Preulcerative Skin Lesion(s) (L85.1Taking Vitamin D3 Taking Lisinopril 10 MG Tablet Orally Once [...] Hammertoe Foot Deformity (M20.41,M20.42), Preulcerative Skin Lesion(s) (L85.1Not-Taking/PRNFlax Oil Xtra Extra Depth Orthopedic Shoes (1 Pair) with [...] List reviewed and reconciled with the patientNot-Taking/PRN Flax Oil Xtra Not-Taking/PRN Extra Depth Orthopedic Shoes (1 Pair) [...] Therapy 3-4x per week for 3-4 weeks Not- Taking/PRN Physical Therapy . . . . 2-3x/weekMedication List reviewed and reconciled with the patient * Allergies:?BactrimMorphineCodeineAdhesiveLipitorPercocetCelebrexPercodanPhenylep hrineRofecoxibLatex: AllergyPenicillin: AllergyGlimepiride: hives - Allergyyes[Allergies Verified] Objective: * Vitals:?Ht: 5 ft 1 in, Wt: 1 64, BMI: 30.98, Shoe size: 8.5-9, BS: 122, Ht-cm: 154.94 cm, Wt-k.39 kg. * ???Past Orders: ???Lab:HEMOGLOBIN A1C (GLYCO HEMOGLOBIN) (Order Date - 01/31/2024) (Collection Date - 01/31/2024) ? Value Reference Range ?TOTAL HEMOGLOBIN (HGBA1C) 6.8 * Examination: ???Ophthalmology Referral: ?DIABETES EYE EXAM?Neurological: [...] plantar , SUB MTH (s), 1 , Left.?Orthopedic: ?DIGITAL DEFORMITIES:?Digital contracture, PIPJ, 2-5 B/L, incompl-reducible to push-up test, no over, nor underlapping,?there is?evidence of shoe producing skin irritation.?FOOTWEAR:?worn, non-supportive, shoe gear properties exacerbate patient's foot/toe deformity.?General Examination: ?GENERAL APPEARANCE:?Reveals a pleasant, alert, well nourished, well- developed, well hydrated individual, who demonstrates proper attention to hygiene/body habitus, and is in no acute distress, Pt serves as own historian for office visit today.?ORIENTED:?person, place, and time.?FOOT EXAM:?Footwear Evaluation? Assessment: * Assessment: 1.?Type 2 diabetes mellitus with diabetic polyneuropathy - E11.42?2.?Other hammer toe(s) (acquired), left foot - M20.42, Chronic problem, Worse (4),Rx Management (4)?3.?Other hammer toe(s) (acquired), right foot - M20.41 (Primary), Chronic problem, Worse (4),Rx Management (4)? Plan: * Treatment: 2.?Type 2 diabetes mellitus with diabetic polyneuropathy?Procedure: 15836-PMXI SKIN LESIONS, 2 TO 4 ?Procedure: A1374-XBCOCHNY DYSTROPHIC NAILS ANY # * Procedures:?Keratoma Treatment:?Parring or Cutting of Benign Hyperkeratotic Lesion(s)?36807 (2-4 Lesions) - The Benign hyperkeratotic lesions, as described above were pared, and/or cut utilizing a sterile #15 blade, tissue nippers, and/or dremel.?Nail Reduction:?Nail Reduction?Trimming of dystrophic nails performed to reduce/remove overall nail length and girth, by manual and electrical means with use of a nail nipper and/or dremel, to more viable healthy nail plate or bed tissue 6-10 (G0127).? * Procedure Codes:?86006 TRIM SKIN LESIONS, 2 TO 4, Modifiers: XS G0127 TRIMMING DYSTROPHIC NAILS ANY #, Modifiers: XS * Preventive Medicine:? ??Counseling:?Discussion:?-14: Office or other outpatient visit for the evaluation and management of an established patient, which required a medically appropriate history and/or examination and MODERATE level of DECISION MAKING for: 1 OR MORE CHRONIC PROBLEM(S) THATS WORSENING, 2 STABLE CHRONIC PROBLEMS, A NEWLY DIAGNOSED PROBLEM WITH UNCERTAIN PROGNOSIS, AN ACUTE COMPLICATED INJURY WITH MULTIPLE TREATMENT OPTIONS, OR AN ACUTE PROBLEM WITH ACCOMPANYING SYSTEMIC SYMPTOMS, THAT POSE(S) A MODERATE RISK OF MORBIDITY. THIS CONDITION MAY ALSO INCLUDE RX DRUG MANAGEMENT, OR A DECISON FOR MINOR SURGERY. The visit on the day of the encounter encompassed interpreting the data and educating the patient as to the nature of their condition, treatment options available according to their individual PMH, meds, allergies, and overall health/living conditions, as well as any potential risks or complications that may occur from a failure to adhere to, and participate in, the recommended course of therapy. The discussion included a complete verbal, and/or written explanation of the examination results, any x-rays taken, the proposed diagnosis, and outline of the treatment plan. A schedule for future care needs was also explained. The patient verbalized an understanding of the instructions at this time and agreed to be an active participant in their treatment. If the patient should think of any questions or concerns after the visit, I have encouraged the patient to call the office.?Digital Treatment:?HT- I explained to the patient the possible etiologies of Hammertoes, including genetics/foot type/shoegear/activity level/exercise routine and the risks/benefits of all the different treatment options for their pain including: No treatment at all, Rest, Ice, New/supportive/wider/deeper Shoegear, Digital Padding/Strapping/Taping/Bracing/Gel protective sleeves, Foot/Ankle AFO Bracing, Stretching exercises, Deep Tissue Massage, Arch support/shoe inserts with splay metatarsal padding, and Custom orthoses. I insisted that any digital devices be removed daily and not worn overnight for safety. The patient is to carefully examine the toes daily for any skin irritation while using any splinting or padding device. The advantages and disadvantages of each option were discussed and the patients questions re: shoegear, padding, custom vs prefabricated inserts, activity level, and consistency in home treatment regimens for optimal success were answered to their verbally confirmed satisfaction, Rx: Extra Depth Diabetic Shoes with 3 pair of custom heat-molded inserts, Recomm, rest, ice, proper shoegear, padding, orthotics, anti-inflammatories or tylenol as tolerated, topical analgesics, cortisone injections.? * Follow Up:?3 Months * Images: * Sign off status: Completed true * Provider:?Suri Kerr DPM Date:?2023 Generated for Sudhir murry/Sebastián/Huy on:?07/04/2024 08:26 AM EST History and Physical Notes * HPI (History of Present Illness) Category Sub-Category Detail Notes Category Not es Toe pain Location: B/L feet Duration: several years Course: worse Aggravated by: shoes, any pressure Treatments: change in shoes At Risk footcare Pt States Last PCP Visit: Date: 4 Examination Category Sub-Category Detail Notes Category Not es Neurological SENSORY: Neurological exa m demonstrates, reduced [...] , SUB MTH (s), 1 , Left Orthopedic FOOTWEAR: worn, non-suppor tive, shoe gear properties exacerbate patient's foot/toe deformity DIGITAL DEFORMITIES: Digital contracture , PIPJ, 2-5 B/L, incompl-reducible to push-up test, no over, nor underlapping, there is evidence of shoe producing skin irritation General Examination GENERAL APPEARANCE: Reveals a pleasant, alert, well nourished, well-developed, well hydrated individual, who demonstrates proper attention to hygiene/body habitus, and is in no acute distress, Pt serves as own historian for office visit today FOOT EXAM: Lower Extremity Neur ological Exam performed:: Yes No changes to the above exam findings since last visit Date: 04/07/2024 Sensory testing performed:: sensations d iminished Sensory and motor testing performed:: se nsations diminished Pedal pulse taking performed:: 2+ ORIENTED: person, place, and t corrine Footwear Evaluation Footwear Evaluation performe d:: Yes Ophthalmology Referral DIABETES EYE EXAM Diabetic Retinopa thy Screening:: Yes Findings of Diabetic Eye Exam:: no retin opathy Nails NAILS are: Elongated, overgrown, dystro phic, 2-5 B/L
--- OUTSIDE RECORDS SUMMARY | 2024-07-04 08:27 | XMS_ITS | Data Portability ---
Author Organization [facility] Address [address] [place] [address] Assessment Encounter Date Assessment Date Assessment LastModified by Organization Details LastModified Time 06/01/2023 06/01/2023 The patient denies recent falls or recurrent falls. Denies instability, weakness, abnormal gait, or difficulties with movement. The patient wears correct, supportive shoes and is not otherwise severely visually impaired. The patient is full weight bearing and if using the assistance of a cane or walker feels supported and stable with the use of such devices. All medical conditions have been taken into account that may pose a risk for the patient for falls. Home kathi, carpets and/or rugs do not pose a challenge for the patient. The patient has been educated about the use of vitamin D supplementation for bone health and prevention of hypotensive episodes that may increase risk for fall. All question and concerns were answered to the patient's satisfaction. [email or web address] Not available 06/01/2023 16:03:16 12/17/2023 12/17/2023 The patient denies recent falls or recurrent falls. Denies instability, weakness, abnormal gait, or difficulties with movement. The patient wears correct, supportive shoes and is not otherwise severely visually impaired. The patient is full weight bearing and if using the assistance of a cane or walker feels supported and stable with the use of such devices. All medical conditions have been taken into account that may pose a risk for the patient for falls. Home kathi, carpets and/or rugs do not pose a challenge for the patient. The patient has been educated about the use of vitamin D supplementation for bone health and prevention of hypotensive episodes that may increase risk for fall. All question and concerns were answered to the patient's satisfaction. The patient denies little pleasure in activities they find enjoyable, feeling depressed, difficulties sleeping, feeling tired or having little energy, change in appetite, feeling guilty, overwhelmed or unmotivated. The patient denies suicidal ideation, thoughts of hurting themselves or others. Their mood is appropriate, they show good judgement and clear understanding of the conversation. They are orientated to time, place and person. They are not expressing any concerning thoughts or actions that would need further investigation and treatment for mental health. [email or web address] Not available 12/17/2023 10:29:53 Plan of Treatment Reminders Order Date Submit Date Provider Last Modified By Organization Details Last Modified Time Details Appointments FOLLOW UP 15 2024 11:45A SACHA MORALEZ Not available Not available Not available Lab hemoglobi n A1c, QN, blood 2023 024 [facility], [address] [place] [address], [id number], 09/10/2023 12:07:15 hemoglobi n A1c, QN, blood 2023 024 [facility], [address] [place] [address], [id number], 12/12/2023 11:32:33 hemoglobi n A1c, QN, blood 2023 024 [email or web address] [facility], [address] [place] [address], [id number], 12/17/2023 10:29:28 lipid panel, blood 2023 024 [facility], [address] [place] [address], [id number], 09/10/2023 12:07:15 CMP, serum or plasma 2023 024 [facility], [address] [place] [address], [id number], 09/10/2023 12:07:14 CBC w/ auto diff 2023 024 [facility], [address] [place] [address], [id number], 09/10/2023 12:07:15 CMP, serum or plasma 2023 024 [facility], [address] [place] [address], [id number], 12/12/2023 11:32:32 lipid panel, blood 2023 024 [facility], [address] [place] [address], [id number], 09/10/2023 12:07:15 CBC w/ auto diff 2023 024 [facility], [address] [place] [address], [id number], 12/12/2023 11:32:33 CMP, serum or plasma 2023 024 [facility], [address] [place] [address], [id number], 03/25/2024 11:36:37 CBC w/ auto diff 2023 024 [facility], [address] [place] [address], [id number], 12/17/2023 10:29:28 CMP, serum or plasma 2023 024 [facility], [address] [place] [address], [id number], 03/25/2024 11:36:36 CMP, serum or plasma 2023 024 [facility], [address] [place] [address], [id number], 04/07/2024 12:16:24 hemoglobi n A1c, QN, blood 2023 024 [facility], [address] [place] [address], [id number], 04/07/2024 12:16:24 CBC w/ auto diff 2023 024 [facility], [address] [place] [address], [id number], 04/07/2024 12:16:24 Referral ENT surgery referral - STAT- 2ND FAX 2023 024 [facility] , [address], [place], [address], 11/05/2023 08:25:32 Procedures None recorded. Surgeries None recorded. Imaging US, parathyro id 2022 023 [facility], [address] [place] [address], [id number], 06/04/2023 10:20:13 Medication Orders cephalexi n 500 mg capsule 2023 024 [facility][id number], [address] [place] [place], [place], [phone], 04/07/2024 11:44:54 diclofena c sodium 75 mg tablet,de layed release 2023 024 [facility] #[id number], [address] [place] [place], [place], [id number], 10/22/2023 10:01:28 Patient TargetsNo targets recorded. Patient InstructionsNo instructions recorded. Reason for Referral ENT Surgery Referral for Par otid swelling significant parotid gland swelling and pain, no improvement with conservative means, very painful STAT- 2ND FAX Referring Physician: Katherine Rodrigez, Internal Medicine, Encounter Date: 10/22/2023 Results Created Date Observation Date Name Description Value Unit Range Abnormal Flag Note LastModifiedBy Organization Detail LastModifiedTime 10/31/19 24 10/24/2023 , keisha teixeira No observ ation record ed. [email or web address] [facility] [address] [place] [address], [address], 12/17/2023 10:29:25 11/30/19 24 11/30/2023 biops y, thyro id, ultra sound lashawn monlivia (PROC ) No observ ation record ed. [facility] (Intervention al Radiology) [address] [place], [address], 12/17/2023 10:29:25 Result Notes None recorded. 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 369770988375 105 Active 2020 Not Available [facility] 3 22:38:14 COVID-19 663099900 Active 2021 Not Available [facility] 3 22:38:16 Type 2 diabetes mellitus 34383414 Active 2021 Not Available [facility] 3 22:38:15 Trigger finger of right hand 550298266885 58748 Active 2021 Not Available [facility] 3 22:38:14 Bilateral trigger fingers 703867607486 85949 Active 2021 Not Available [facility] 3 22:38:14 Transient cerebral ischemia 804495396 Active 2021 Not Available [facility] 3 22:38:14 Essential tremor 642804044 Active 2022 Not Available [facility] 3 22:38:15 Allergic rhinitis 87874542 Active 2022 Not Available [facility] 3 22:38:15 Hyperpara thyroidis m 42304562 Active 2022 Not Available [facility] 3 22:38:16 Osteoporo sis 32091548 Active 2022 Not Available [facility] 3 22:38:16 Chronic sinusitis 42771635 Active 2023 SACHA NARANJO [address] [place], [address], [facility] 4 09:46:26 Parotid swelling 027949404 Active 2023 SACHA NARANJO [address] [place], [address], [facility] 4 09:25:24 Thyroid nodule 470944565 Active 2023 SACHA NARANJO [address] [place], [address], [facility] 4 15:47:47 Aortic valve stenosis 16967002 Active 2017 Not Available [facility] 3 22:38:15 Diverticu litis 317027236 Active 2017 Not Available [facility] 3 22:38:14 Essential hypertens ion 86079945 Active 2017 Not Available [facility] 3 22:38:15 Hyperchol esterolem ia 91581772 Active 2017 Not Available [facility] 3 22:38:14 Osteoarth ritis 990717324 Active 2017 Not Available [facility] 3 22:38:15 Anxiety 54668608 Active 2017 Not Available [facility] 3 22:38:15 Diabetes mellitus 21389980 Active 2017 Not Available [facility] 3 22:38:16 Notes:Some problems listed i n Document: #[id number] could not be added to this patient's chart. Please review this document and add these problems to the patient's chart manually as needed. Problem Notes None recorded. Procedures Surgical History Date Name Laterality Status Provider Name and Address Organization Details Recorded Time 009 Lens, intraocular (new tech) completed Radha Morales NP, [address] [place], [address], [facility] 11/28/2017 08:50:18 006 Carotid Endarterectomy completed Radha Morales NP, [address] [place], [address], [place] [facility] 11/28/2017 08:49:27 005 Appendectomy completed Radha Morales NP, [address] [place], [address], [place] [facility] 11/28/2017 08:49:42 Imaging Results Imaging Date Name Status LastModified by Organiz ation Details LastModified Time 10/24/2023 US, parathyroid completed [facility] [address] [place], [address], 12/17/2023 10:29:25 11/30/2023 biopsy, thyroid, ultrasound guidance (PROC) completed [facility] (Interventional Radiology) [address] [place], [address], 12/17/2023 10:29:25 Procedure Notes None recorded. Medical Equipment None Reported. Allergies Allergen ID Allergen Name Allergen Category Reaction Reaction Severity Criticality Documentation Date Start Date Code Code System Note Provider Name and Address Organization Details Recorded Time 1465 Celebrex medicatio n Not available Not available Not available 11/27/2017 52210 7 RxNorm Padmini young [facility] 8 15:18:51 1466 Vioxx medicatio n Not available Not available Not available 11/27/2017 81291 9 RxNorm Padmini young [facility] 8 15:19:05 1467 Medicinal product containin g penicilli n and acting as antibacte rial agent (product) medicatio n Not available Not available Not available 11/27/2017 48498 05 SNOMED Padmini young [facility] 8 15:19:14 1468 Substance with sulfonami de structure and antibacte rial mechanism of action (substanc e) medicatio n Not available Not available Not available 11/27/2017 09425 8003 [facility] 8 15:19:24 2908 codeine medicatio n Not available Not available Not available 09/13/2018 2670 RxNorm Trever Tang DO [address] [place], [address], [facility] 9 09:56:46 3233 Percodan medicatio n Not available Not available Not available 01/22/2019 35185 [facility] 14:46:45 3234 acetamino phen / oxycodone medicatio n Not available Not available Not available 01/22/2019 29340 3 [facility] 9 14:46:50 3235 morphine medicatio n Not available Not available Not available 01/22/2019 7052 [facility] 9 14:48:01 3236 Lipitor medicatio n Not available Not available Not available 01/22/2019 42671 5 [facility] 14:48:20 5604 meloxicam medicatio n abdominal pain severe Not available 09/19/2021 49810 RxNorm SACHA NARANJO [address] [place], [address], [facility] 2 14:22:13 7550 glimepiri de medicatio n Not available Not available Not available 06/01/2023 10114 RxNorm SACHA NARANJO [address] [place], [address], [facility] 3 15:52:49 Medications Name Sig Start Date Stop Date Status Note LastModified by Organization Details LastModified Time tizanidin e hydrochlo ride 4 mg tabs 12/16 completed Not Available Not Available Not Available Prescript ion - New 01/11 completed Orthotic shoes Not Available Not Available Not Available metformin hydrochlo ride 500 mg tabs 01/06 completed Not Available Not Available Not Available alprazola m 0.25 mg tabs 12/16 completed Not Available Not Available Not Available cyclobenz aprine 10 mg tablet Take 1 tablet every day by oral route as needed. 12/13 completed Not Available Not Available Not Available metformin 500 mg tablet TAKE 2 TABLETS BY MOUTH TWICE DAILY DIRECTED active Not Available Not Available No t Available nystatin 100,000 unit/mL oral suspensio n 02/27 completed Not Available Not Available Not Available doxycycli ne hyclate 100 mg capsule 03/10 completed Not Available Not Available Not Available cetirizin e 10 mg tablet TAKE 1 TABLET BY MOUTH EVERY DAY 02/26 completed Not Available Not Available Not Available azithromy jany 250 mg tablet TAKE 2 TABLETS (500 MG) BY ORAL ROUTE ONCE DAILY FOR 1 DAY THEN 1 TABLET (250 MG) BY ORAL ROUTE ONCE DAILY FOR 4 DAYS 10/21 completed Not Available Not Available Not Available tizanidin e 4 mg tablet TAKE 1 TABLET BY MOUTH EVERY DAY NEEDED 11/04 completed not taking- only took for muscle strain. Not Available Not Available Not Available benzonata te 200 mg capsule TAKE 1 CAPSULE BY MOUTH THREE TIMES DAILY FOR 14 DAYS NEEDED 08/30 completed Not Available Not Available Not Available fluconazo le 200 mg tablet 02/27 completed Not Available Not Available Not Available meloxicam 15 mg tablet TAKE 1 TABLET BY MOUTH EVERY DAY 11/02 completed Not Available Not Available Not Available atenolol 25 mg tablet TAKE 1 TABLET BY MOUTH EVERY DAY 03/21 completed Not Available Not Available Not Available glimepiri de 2 mg tablet TAKE 1 TABLET BY MOUTH EVERY DAY IN THE MORNING 06/01 completed Not Available Not Available Not Available alprazola m 0.25 mg tablet TAKE 1 TABLET BY MOUTH AT BEDTIME NEEDED 01/11 completed Not Available Not Available Not Available cephalexi n 500 mg capsule TAKE 1 CAPSULE BY MOUTH EVERY 6 HOURS FOR 7 DAYS 04/07 completed Not Available Not Available Not Available simvastat in 20 mg tablet 1 po daily 03/10 completed Not Available Not Available Not Available clotrimaz ole-betam ethasone 1 %-0.05 % topical cream 02/27 completed Not Available Not Available Not Available lisinopri l 10 mg tablet TAKE 1 TABLET BY MOUTH EVERY DAY active Not Available Not Available No t Available hydrochlo rothiazid e 12.5 mg capsule 02/27 completed Not Available Not Available Not Available fluoxetin e 10 mg capsule TAKE 1 CAPSULE BY MOUTH EVERY DAY DIRECTED active Not Available Not Available No t Available sertralin e 25 mg tablet TAKE 1 TABLET BY MOUTH EVERY DAY 01/24 completed Not Available Not Available Not Available diclofena c sodium 75 mg tablet,de layed release TAKE 1 TABLET BY MOUTH TWICE DAILY NEEDED active Not Available Not Available No t Available lisinopri l 5 mg tablet TAKE 1 TABLET BY MOUTH EVERY DAY DIRECTED active Not Available Not Available No t Available mupirocin 2 % topical ointment APPLY A SMALL AMOUNT TO THE AFFECTED AREA BY TOPICAL ROUTE 3 TIMES PER DAY for 10 days 01/22 completed Not Available Not Available Not Available zolpidem 5 mg tablet Take 1 tablet every day by oral route. 05/27 completed Not Available Not Available Not Available dexametha sone sodium phosphate 4 mg/mL injection solution 02/27 completed Not Available Not Available Not Available methylpre dnisolone 4 mg tablets in a dose pack FOLLOW PACKAGE DIRECTIO NS 08/30 completed Not Available Not Available Not Available fluoxetin e 20 mg capsule TAKE 1 CAPSULE BY MOUTH EVERY DAY active Not Available Not Available No t Available neomycin 3.5 mg/g-poly myxin B 10,000 unit/g-de xameth 0.1 % eye oint 05/15 completed Not Available Not Available Not Available Skelaxin 800 mg tablet Take 1 tablet 3 times a day by oral route for 10 days. 09/24 completed Not Available Not Available Not Available rosuvasta tin 40 mg tablet TAKE 1 TABLET BY MOUTH EVERY DAY active Not Available Not Available No t Available duloxetin e 30 mg capsule,d elayed release TAKE 1 CAPSULE BY MOUTH EVERY DAY 11/02 completed Not Available Not Available Not Available Aspir-81 Take one tablet once a day active Not Available Not Available No t Available Vitamin D3 active Not Available Not Available Not Available multivita min Take one tablet once a day active Not Available Not Available No t Available hydrochlo rothiazid e 12.5 mg tablet 1 tab daily 05/27 completed Not Available Not Available Not Available FreeStyle Lite Meter kit USE DIRECTED active Not Available Not Available No t Available FreeStyle Lite Strips USE DIRECTED TO TEST BLOOD SUGAR DAILY active Not Available Not Available No t Available Probiotic Take one capsule once a day active Not Available Not Available No t Available Shingrix (PF) 50 mcg/0.5 mL intramusc ular suspensio n, kit 12/13 completed Not Available Not Available Not Available Paxlovid 300 mg (150 mg x 2)-100 mg tablets in a dose pack TAKE 1 TABLETS OF NIRMATRE LVIR AND RITONAVI R TWICE A DAY BY MOUTH FOR 5 DAYS 01/11 completed Not Available Not Available Not Available Vitals Date Recorded Body height Body mass index (BMI) Body weight Heart rate Oxygen saturation Oxygen saturation in Arterial blood by Pulse oximetry Systolic blood pressure Diastolic blood pressure Provider Name and Address Organization Details Last Updated DateTime 3 156.21 cm 32 kg/m2 00491.8 9 g 66 /min 98 % 98 % 134 mm[Hg] 62 mm[Hg] Imelda Ghulam [facility] 3 15:35:30 Date Recorded Body height Body mass index (BMI) Body weight Heart rate Oxygen saturation Oxygen saturation in Arterial blood by Pulse oximetry Systolic blood pressure Diastolic blood pressure Provider Name and Address Organization Details Last Updated DateTime 4 156.21 cm 32 kg/m2 11322.8 9 g 78 /min 97 % 97 % 130 mm[Hg] 78 mm[Hg] Imelda Ghulam [facility] 4 09:25:50 Date Recorded Body height Body mass index (BMI) Body weight Heart rate Respiratory rate Body temperature Oxygen saturation Oxygen saturation in Arterial blood by Pulse oximetry Systolic blood pressure Diastolic blood pressure Provider Name and Address Organization Details Last Updated DateTime 4 156.21 cm 32 kg/m2 02625.8 9 g 95 /min 16 /min 97.6 [degF] 98 % 98 % 128 mm[Hg] 82 mm[Hg] SACHA NARANJO [address] [place], [address] [place] [address] Internal Medicine 4 09:41:44 Date Recorded Body height Body mass index (BMI) Body weight Heart rate Oxygen saturation Oxygen saturation in Arterial blood by Pulse oximetry Systolic blood pressure Diastolic blood pressure Provider Name and Address Organization Details Last Updated DateTime 4 156.21 cm 31 kg/m2 55909.9 3 g 81 /min 97 % 97 % 130 mm[Hg] 70 mm[Hg] Imelda Parmar [facility] 4 10:09:21 Date Recorded Body height Body mass index (BMI) Body weight Heart rate Oxygen saturation Oxygen saturation in Arterial blood by Pulse oximetry Systolic blood pressure Diastolic blood pressure Provider Name and Address Organization Details Last Updated DateTime 4 156.21 cm 31.4 kg/m2 30846.3 9 g 83 /min 98 % 98 % 122 mm[Hg] 72 mm[Hg] Princess Tejada [facility] 4 11:47:44 Social History Question Answer Notes LastModified by Sanoat ion Details LastModified Time Tobacco Smoking Status Former Smoker Not Available [facility] 05/04/2020 03:36:23 What Was The Date Of Your Most Recent Tobacco Screening? 04/07/2024 [email or web address] Information not available 04/07/2024 Sex: Unknown Functional Status None recorded. Mental Status None recorded. Family History Nothing Reported. Medical History No medical history recorded. Gynecological HistoryNo gynecological history recorded. Obstetrics History GPAL:G 0 P 0 0 0 0 Immunizations Vaccine Type Date Status Note Provider Nam e and Address Organization Details Recorded Time COVID-19, mRNA, LNP-S, PF, 30 mcg/0.3 mL dose 1 completed Not Available [facility] 05/25/2023 22:38:17 COVID-19, mRNA, LNP-S, PF, 30 mcg/0.3 mL dose 1 completed Not Available [facility] 05/25/2023 22:38:17 COVID-19, mRNA, LNP-S, PF, 30 mcg/0.3 mL dose 1 completed Not Available [facility] 05/25/2023 22:38:17 COVID-19, mRNA, LNP-S, PF, 30 mcg/0.3 mL dose 2 completed Not Available [facility] 05/25/2023 22:38:17 Influenza, split virus, quadrivalent, preservative 1 completed Not Available [facility] 05/25/2023 22:38:16 Influenza, split virus, quadrivalent, preservative 2 completed Not Available [facility] 05/25/2023 22:38:16 COVID-19, mRNA, LNP-S, PF, 30 mcg/0.3 mL dose 2 completed Not Available [facility] 05/25/2023 22:38:17 SARS-COV-2 (COVID-19) vaccine, UNSPECIFIED 4 completed SACHA NARANJO [address] [place] [address], [phone], [facility] 04/07/2024 11:56:48 influenza, unspecified formulation 4 completed SACHA NARANJO [address] [place] [address], [address], [facility] 04/07/2024 11:57:02 Respiratory syncytial virus (RSV) vaccine, unspecified 3 [facility] 04/30/2024 08:56:50 influenza, unspecified formulation 3 [facility] 04/30/2024 08:57:18 SARS-COV-2 (COVID-19) vaccine, UNSPECIFIED 3 [facility] 04/30/2024 08:57:34 pneumococcal, unspecified formulation 7 completed Not Available [facility] 05/25/2023 22:38:17 pneumococcal, unspecified formulation 3 completed Not Available [facility] 05/25/2023 22:38:17 Tdap 9 completed Not Available [facility] 05/25/2023 22:38:17 zoster recombinant 9 completed Not Available [facility] 05/25/2023 22:38:17 Influenza, split virus, quadrivalent, preservative 0 completed Not Available [facility] 05/25/2023 22:38:16 Past Encounters Encounter ID Performer Location Encounter Start Date Encounter Closed Date Diagnosis/Indication Diagnosis SNOMED-CT Code Diagnosis ICD10 Code [id number] Radha Morales NP, [facility] [address] [place] [address] 11/28/2017 08:57:40 11/28/2017 10:17:03 Diabetes mellitus 33215911 E11.9 Urine looks dark 0410902 7 R82.99 Hyperkalemia 53143570 E8 7.5 Essential hypertension 00685944 I10 Aortic valve stenosis 60 429034 I35.0 Anxiety 40925579 F41.9 Osteoarthritis 097764050 M19.90 Urobilinog en concentration, dipstick - finding 566044481 R82.99 [id number] Radha Morales NP, [address] [address] 02/27/2018 09:07:52 02/27/2018 16:42:09 Anxiety 33170174 F41.9 Essential hypertension 95907942 I10 Aortic valve stenosis 60 471870 I35.0 Diabetes mellitus 626145 09 E11.9 Persistent insomnia 1919 86441 G47.09 [id number] Radha Morales NP, [address] [address] 05/27/2018 09:53:36 05/28/2018 08:44:47 Osteoarthritis of multiple joints 602004150 M15.9 Hypercalcemia 82395043 E 83.52 Anxiety 99159210 F41.9 Essential hypertension 46400783 I10 Aortic valve stenosis 60 471391 I35.0 Diabetes mellitus 684226 09 E11.9 [id number] Radha Morales NP, [facility] [address] [place] [address] 06/10/2018 10:00:22 06/10/2018 16:58:07 Osteoarthritis 158913810 M19.90 Essential hypertension 95489233 I10 Idiopathic hypercalcemia 482739163 E83.52 [id number] Radha Morales NP, [facility] [address] [place] [address], [place] [address] 08/28/2018 08:52:19 08/28/2018 10:08:13 Essential hypertension 84346055 I10 Aortic valve stenosis 60 797964 I35.0 Diabetes mellitus 247648 09 E11.9 Anxiety 67698672 F41.9 Osteoarthritis 755343255 M19.90 Hypercholesterolemia 136 95869 E78.00 Hypercalcemia 17556701 E 83.52 Strain of trapezius muscle 627876955 S46.811A Active or passive immunization 036563064 Z23 [id number] Trever Tang [facility] [address] [place] [address] [place] [address] 09/13/2018 09:36:07 09/13/2018 10:19:48 Essential hypertension 60183888 I10 Diabetes mellitus 271074 09 E11.9 Thoracic back pain 74285 8004 M54.6 50979 Trever Tang [facility] Internal [address] [place] [address] 09/24/2018 09:21:56 09/24/2018 10:06:50 Essential hypertension 24649174 I10 Aortic valve stenosis 60 508919 I35.0 Diabetes mellitus 674705 09 E11.9 Thoracic spondylosis 387 415485 M47.814 [id number] Trever Tang [facility] Internal [address] [place] [address] 12/13/2018 15:54:36 12/13/2018 16:33:11 Essential hypertension 97732641 I10 Diabetes mellitus 973065 09 E11.9 [id number] [facility] [address] [place] [address] ite D [facility] [place] [address] 01/22/2019 14:37:37 01/22/2019 15:52:54 Hypercholesterolemia 65842582 E78.00 Essential hypertension 50706624 I10 Diabetes mellitus 227762 09 E11.65 Transient cerebral ischemia 400648658 G45.9 16431 [facility] [address] [place] [address] [place] [address] 03/10/2019 16:11:15 03/10/2019 16:44:15 Essential hypertension 37016221 I10 Anxiety 93454401 F41.9 Diabetes mellitus 805975 E11.65 54048 [facility] [address] [place] [address] [place] [address] 03/21/2019 09:11:00 03/21/2019 10:40:25 Orthostatic hypotension 53116121 I95.1 Essential hypertension 09343982 I10 Diabetes mellitus 541401 E11.65 [id number] [facility] [address] [place] [address] [place] [address] 04/07/2019 08:54:16 04/07/2019 09:48:08 Hypercholesterolemia 54336597 E78.00 Anxiety 55982149 F41.9 Essential hypertension 43804966 I10 Diabetes mellitus 072505 09 E11.65 Active or passive immunization 722249360 Z23 Body mass index 30+ - obesity 111313284 Z68.32 Advance care planning 71 2474471 Z71.89 12775 [facility] [address] [place] [address] [place] [address] 07/09/2019 09:53:40 07/09/2019 10:45:51 Diabetes mellitus 83300632 E11.65 Hypercholesterolemia 136 18733 E78.00 Essential hypertension 05260335 I10 Sinus tachycardia 551905 01 R00.0 Anxiety 27836508 F41.[address] [place] [address] 10/01/2019 09:01:09 10/01/2019 10:52:52 Anxiety 50456792 F41.9 Low back pain 487866945 M54.5 Essential hypertension 21480026 I10 Diabetes mellitus 709139 E11.65 25319 KATHERINE RODRIGEZ [facility] Internal Medicine [address] [place] [address] [place] [address] 10/10/2019 10:40:09 10/10/2019 12:01:21 Fall 7127862 W19.XXXA Pain in left knee 234858 2518 48463 M25.562 Pain in ri ght lower limb 863151441 M79.604 40351 SACHA NARANJO [facility] Internal Medicine [address] [facility] [address] 12/17/2019 11:36:53 12/17/2019 14:26:40 Postural dizziness 566374985 R42 Lightheadedness 53252441 8 R42 [id number] SACHA NARANJO [facility] Internal Medicine [address] [place] [address],[place] [address] 01/07/2020 10:24:04 01/07/2020 11:37:24 Diabetes mellitus 97109893 E11.9 Essential hypertension 94481342 I10 [id number] SACHA NARANJO [facility] Internal Medicine [address] [place] [address],[place] [address] 04/14/2020 11:06:48 04/14/2020 12:02:49 Anxiety 65136923 F41.9 Diabetes mellitus 674338 09 E11.9 83660 SACHA NARANJO [facility] Medicine [address] [place] [address],[place] [address] 07/13/2020 08:10:14 07/13/2020 12:08:04 Intention tremor 73206292 G25.2 Anxiety 63669465 F41.9 Diabetes mellitus 667269 09 E11.9 Essential hypertension 83598884 I10 [id number] Trever Tang DO [facility] Internal Medicine [address] [place] [address],[place] [address] 08/24/2020 11:34:49 08/24/2020 12:29:56 Essential hypertension 18532269 I10 Aortic valve stenosis 60 505597 I35.0 Diabetes mellitus 663692 09 E11.9 Diverticulitis 187426147 K57.92 Peripheral sensory neuropathy due to type 2 diabetes mellitus 8742812848 14646 E11.42 39022 SACHA NARANJO [facility] Medicine [address] [place] [address],[place] [address] 09/27/2020 10:26:04 09/27/2020 14:32:59 Adult health examination 066733369 Z00.00 Screening for cardiovascular system disease 122649954 Z13.6 Anxiety 65083043 F41.9 Diabetes mellitus 683147 09 E11.9 87714 SAHCA NARANJO [facility] Internal Medicine [address] [place], [place] [address] [address] 10/11/2020 09:28:22 10/11/2020 10:22:08 Diabetes mellitus 85401975 E11.9 Essential hypertension 97972627 I10 Osteoarthritis 317085896 M19.90 91885 SACHA NARANJO [facility] Medicine [address] [place], [place] [address] [address] 01/24/2021 09:25:33 01/24/2021 11:24:43 Essential hypertension 79210233 I10 Diabetes mellitus 977491 09 E11.9 Anxiety 69463653 F41.1 Loss of hair 692097074 L 63.8 64280 SACAH NARANJO [facility] Medicine [address] [place] [address] [place] [address] 04/26/2021 09:28:53 04/26/2021 15:12:59 Hypercholesterolemia 13080140 E78.2 Essential hypertension 97561289 I10 Diabetes mellitus 543865 09 E11.9 Chronic low back pain 27 3999226 M54.59 Thoracic back pain 58498 8004 M54.6 03754 SACHA NARANJO [facility] Medicine [address] [place] [address] [place] [address] 08/03/2021 08:14:16 08/08/2021 10:55:32 Anxiety 92815162 F41.1 Diabetes mellitus 026273 09 E11.9 Peripheral sensory neuropathy due to type 2 diabetes mellitus 0155541538 49853 E11.42 Elderly fall 699966370 R 29.6 66257 SACHA NARANJO [facility] Medicine [address] [place], [place] [address] [address] 09/19/2021 09:21:48 09/21/2021 11:08:49 Gastritis 3618700 K29.60 Melena 4141197 K92.1 94630 SACHA NARANJO [facility] Medicine [address] [place], [place] [address] [address] 11/02/2021 13:31:30 11/07/2021 11:30:17 Essential hypertension 99548983 I10 Diabetes mellitus 211322 09 E11.9 Anxiety 45686142 F41.1 Hypercalcemia 67595659 E 83.52 65052 SACHA NARANJO [facility] Medicine [address] [facility],[place] [address] 01/11/2022 10:09:26 01/11/2022 15:45:16 Trigger finger of right hand 9866735081 6024275 M65.321 09355 SACHA NARANJO [facility] Internal Medicine [address] [facility],[place] [address] 02/08/2022 10:23:58 02/08/2022 11:07:40 Advance care planning 779196196 Z71.89 Type 2 larisa betes mellitus 63210133 E11.9 Essential hypertension 11395742 I10 Depression screening 171 471348 Z13.31 Bilateral trigger fingers 6832815529 3388927 M65.30 80875 SACHA NARANJO [facility] Medicine [address] [facility],[place] [address] 05/15/2022 10:26:21 05/16/2022 13:38:15 Transient cerebral ischemia 222060099 G45.8 Essential hypertension 13597427 I10 Type 2 larisa betes mellitus 53976589 E11.9 Anxiety 05270302 F41.1 69895 SACHA NARANJO [facility] Medicine [address] [facility],[place] [address] 08/22/2022 09:54:57 08/22/2022 15:14:39 Anxiety 80222108 F41.1 Diabetes mellitus 566097 09 E11.9 Essential hypertension 33365703 I10 Essential tremor 8038347 09 G25.0 98975 SACHA NARANJO [facility] Medicine [address] [facility],[place] [address] 11/15/2022 10:25:20 11/15/2022 11:30:52 Type 2 diabetes mellitus 93931300 E11.9 Essential hypertension 93080011 I10 Allergic rhinitis 384440 04 J30.1 Peripheral sensory neuropathy due to type 2 diabetes mellitus 7037948232 40970 E11.42 Anxiety 43448196 F41.1 Transient cerebral ischemia 205435257 G45.8 03116 SACHA NARANJO [facility] Medicine [address] [facility],[place] [address] 02/26/2023 13:21:24 02/27/2023 13:42:59 Anxiety 57472133 F41.1 Essential hypertension 92480241 I10 Hypercholesterolemia 136 26732 E78.2 Hypercalcemia 54510914 E 83.52 Type 2 larisa betes mellitus 29030070 E11.9 Aortic valve stenosis 60 678252 I35.0 265371 SACHA NARANJO [facility] Medicine [address] [place] [address],[place] [address] 06/01/2023 15:17:51 06/04/2023 10:20:13 Hyperparathyroidism 21170739 E21.0 Essential hypertension 44444289 I10 Aortic valve stenosis 60 588775 I35.0 [id number] SACHA NARANJO [facility] Medicine [address] [place] [address],[place] [address] 08/31/2023 09:20:30 08/31/2023 15:48:39 Essential hypertension 91042103 I10 Hypercholesterolemia 136 10225 E78.2 Type 2 larisa betes mellitus 66915913 E11.9 Chronic sinusitis 944763 00 J32.0 [id number] [facility] Medicine [address] [place] [address],[place] [address] 10/22/2023 09:36:58 10/22/2023 13:56:03 Parotid swelling 113789198 K11.1 Hyperparathyroidism 6699 9008 E21.0 Type 2 larisa betes mellitus 26358475 E11.42 [id number] SACHA NARANJO [facility] [address] [place] [address],[place] [address] 12/17/2023 09:58:34 12/17/2023 11:28:07 Depression screening 924634290 Z13.31 At low risk for fall 439 861285 Z91.81 Type 2 larisa betes mellitus 34111091 E11.42 Hyperparathyroidism 6699 9008 E21.0 Essential hypertension 02134165 I10 [id number] ASCHA NARANJO [facility] Medicine [address] [facility],[place] [address] 04/07/2024 11:35:47 04/07/2024 15:28:48 Type 2 diabetes mellitus 51020234 E11.42 Anxiety 44249298 F41.1 Aortic valve stenosis 60 585450 I35.0 Essential hypertension 62990304 I10 Health Concerns Section Related Observation LastModified by Organization Detai ls LastModified Time None Recorded Concern Status LastModified by Organization Details LastModified Time None Recorded Advance Directives Directive None Recorded Payers Encounter Date Sequence Insurance Name Policy Number Policy Chan Covered Member ID Chan Member ID Guarantor Name 06/01/2023 1 [place] Ochiltree D Nighat [id number] Gail D Nighat 06/01/2023 2 [place] [id number] Ochiltree Nighat [id number] Ochiltree D Nighat 08/31/2023 1 [place] Gail D Nighat [id number] Ochiltree D Nighat 08/31/2023 2 [place] [id number] Gail Nighat [id number] Gail D Nighat 10/22/2023 1 [place] Gail D Nighat [id number] Gail D Nighat 10/22/2023 2 [place] [id number] Ochiltree Nighat [id number] Gail D Nighat 12/17/2023 1 [place] Gail D Nighat [id number] Ochiltree D Nighat 12/17/2023 2 [place] [id number] Gail Nighat [id number] Gail D Nighat 04/07/2024 1 [place] Gail D Nighat [id number] Gail Disla 04/07/2024 2 [place] [id number] Gail Disla [id number] Gail Disla Notes Date Note Type Note Provider Name a nd Address Organization Details Recorded Time 3 text/html 3 mos f/u the patient reports she feels weakerper her family she is doing well for her ageno chest pain, no sob, no signs of cardiac distress discussed her lab work resultsher US Parathyroid was normal but her PTH and calcium levels are still above rangewill just need to monitor at this time and recheck with another US in a few months SACHA NARANJO [address] [place], [address], [facility] 06/01/2023 16:07:35 4 text/html 3 mos f/u the patient is getting pain from the back of her head into her neckthe patient reports that her eyes are watery and has occipital painthe patient has a hard time describing the type of discomfort possible chronic sinusitisthe patient agrees to trial flonase for the sinus displeasure the patient needs new labs, did not have the new standing orders on file when she went will give her a paper copy to take with her her sugar was a little elevated but not surprising due to recent infections SACHA NARANJO [address] [place], [address], [facility] 08/31/2023 09:48:16 4 text/html f/u parotid gland swelling the patient has h/x of parotid glands swelling, in the R sidethe patient needs new STAT referral per ENT given swelling, otherwise booked out 6 mos has US set up, continue with USabx adjusted, added anti-inflammatory otherwise doing okay sig swelling and pain on the R side SACHA NARANJO [address] [place], [address], [facility] 10/22/2023 10:11:17 4 text/html 3 mos f/u the patient had been seen for her parotid gland by Dr. Buskeroosdid not recommend surgery at this time, the abx we prescribed worked very well the patient will call if the issue starts againthe patient is otherwise doing well the patient biospy went wellresults were negative which is good news, will continue US screening every 3 to 6 mos to continue to monitor for any changes the patient a1c was 6.8% which is excellent control still tired but no major changes in her symptomatologyno otherwise concerned about anything SACHA NARANJO [address] [place], [address], [facility] 12/17/2023 10:41:43 4 text/html 3 mos f/u thyroid biospy: the patient had her thyroid biopsy in October, her lesion was benignhaving some residual hoarseness which can occur due to the trauma around the area and nerve declined anxiety: switch fluoxetine to PM, increase to two capsules a day for better anxiety controlinsomnia is the big issues since her brain doesn't turn off balance/hip pain: discussed options to use OTC; patches, lidocaine, can use diclofenac PRN for more severe painwill be getting a cane to have for longer walks declined PT SACHA NARANJO [address] [place], [address], [facility] 04/07/2024 12:30:25 OBGyn Episode No OBEpisode recorded.
--- OUTSIDE RECORDS SUMMARY | 2024-07-04 08:27 | XMS_ITS | Continuity of Care Document ---
Author Organization [facility], [facility] Address [address] [place] [address] [place] [address] Assessment No assessment recorded. Plan of Treatment Reminders Order Date Submit Date Provider Last Modified By Organization Details Last Modified Time Details Appointments FOLLOW UP 15 2024 11:45A M SACHA NARANJO Not available Not available Not available Lab CMP, serum or plasma 2023 [facility], [address] [place] [address], [id number], 04/07/2024 12:16:24 hemoglobi n A1c, QN, blood 2023 [facility], [address] [place] [address], [address], 04/07/2024 12:16:24 CBC w/ auto diff 2023 [facility], [address] [place] [address], [address], 04/07/2024 12:16:24 Referral None recorded. Procedures None recorded. Surgeries None recorded. Imaging None recorded. Medication Orders None recorded. Patient TargetsNo targets recorded. Patient InstructionsNo instructions recorded. Reason for Referral None Reported. Problems Name Problem SNOMED Code Status Onset Date Resolution Date Notes Provider Name and Address Organization Details Recorded Time Hypercalc emia 28972669 Active 2018 Not Available [facility] 22:38:16 Thoracic spondylos is 802451197 Active 2018 Not Available [facility] 22:38:15 Periphera l sensory neuropath y due to type 2 diabetes mellitus 316249893460 105 Active 2020 Not Available [facility] 3 22:38:14 COVID-19 812069658 Active 2021 Not Available [facility] 22:38:16 Type 2 diabetes mellitus 59595277 Active 2021 Not Available [facility] 3 22:38:15 Trigger finger of right hand 824666818140 62037 Active 2021 Not Available [facility] 3 22:38:14 Bilateral trigger fingers 972266176986 16928 Active 2021 Not Available [facility] 3 22:38:14 Transient cerebral ischemia 463272037 Active 2021 Not Available [facility] 3 22:38:14 Essential tremor 924119110 Active 2022 Not Available [facility] 3 22:38:15 Allergic rhinitis 08527813 Active 2022 Not Available [facility] 3 22:38:15 Hyperpara thyroidis m 97523619 Active 2022 Not Available [facility] 3 22:38:16 Osteoporo sis 92869837 Active 2022 Not Available [facility] 3 22:38:16 Chronic sinusitis 23555305 Active 2023 SACHA NARANJO [address] [place] [address], [address], [facility] 4 09:46:26 Parotid swelling 160529192 Active 2023 SACHA NARANJO [address] [place] [address], [address], [facility] 4 09:25:24 Thyroid nodule 449125280 Active 2023 SACHA NARANJO [address] [place] [address], [address], [facility] 4 15:47:47 Aortic valve stenosis 41346302 Active 2017 Not Available [facility] 3 22:38:15 Diverticu litis 453283359 Active 2017 Not Available [facility] 22:38:14 Essential hypertens ion 27054322 Active 2017 Not Available [facility] 22:38:15 Hyperchol esterolem ia 42317342 Active 2017 Not Available [facility] 22:38:14 Osteoarth ritis 348779081 Active 2017 Not Available [facility] 22:38:15 Anxiety 55087573 Active 2017 Not Available [facility] 22:38:15 Diabetes mellitus 41300147 Active 2017 Not Available [facility] 22:38:16 Notes:Some problems listed i n Document: #[id number] could not be added to this patient's chart. Please review this document and add these problems to the patient's chart manually as needed. Problem Notes None recorded. Procedures Surgical History Date Name Laterality Status Provider Name and Address Organization Details Recorded Time 009 Lens, intraocular (new tech) completed Radha Morales NP, [address] [place] [address], [address], [facility] 11/28/2017 08:50:18 006 Carotid Endarterectomy completed Radha Morales NP, [address] [place] [address], [address], [facility] 11/28/2017 08:49:27 005 Appendectomy completed Radha Morales NP, [address] [place] [address], [address], [facility] 11/28/2017 08:49:42 Imaging Results None recorded. Procedure Notes None recorded. Medical Equipment None Reported. Allergies Allergen ID Allergen Name Allergen Category Reaction Reaction Severity Criticality Documentation Date Start Date Code Code System Note Provider Name and Address Organization Details Recorded Time 1465 Celebrex medicatio n Not available Not available Not available 11/27/2017 34346 7 [facility] 15:18:51 1466 Vioxx medicatio n Not available Not available Not available 11/27/2017 34282 9 [facility] 15:19:05 1467 Medicinal product containin g penicilli n and acting as antibacte rial agent (product) medicatio n Not available Not available Not available 11/27/2017 71359 05 [facility] 15:19:14 1468 Substance with sulfonami de structure and antibacte rial mechanism of action (substanc e) medicatio n Not available Not available Not available 11/27/2017 27501 8003 [facility] 8 15:19:24 2908 codeine medicatio n Not available Not available Not available 09/13/2018 2670 RxNorm Trever Tang DO [address] [place], [address], [facility] 9 09:56:46 3233 Percodan medicatio n Not available Not available Not available 01/22/2019 84517 RxNorm [facility] 9 14:46:45 3234 acetamino phen / oxycodone medicatio n Not available Not available Not available 01/22/2019 78637 3 [facility] 9 14:46:50 3235 morphine medicatio n Not available Not available Not available 01/22/2019 7052 [facility] 9 14:48:01 3236 Lipitor medicatio n Not available Not available Not available 01/22/2019 39748 5 [facility] 14:48:20 5604 meloxicam medicatio n abdominal pain severe Not available 09/19/2021 17232 RxNorm SACHA NARANJO [address] [place], [address], [facility] 2 14:22:13 7550 glimepiri de medicatio n Not available Not available Not available 06/01/2023 31278 RxNorm SACHA NARANJO [address] [place], [address], [facility] 3 15:52:49 Medications Name Sig Start Date [...] Updated DateTime 4 156.21 cm 31.4 kg/m2 21584.3 9 g 83 /min 98 % 98 % 122 mm[Hg] 72 mm[Hg] [facility] 4 11:47:44 Social History Question Answer Notes LastModified by Organizat ion Details LastModified Time Tobacco Smoking Status Former Smoker Not Available [facility] 05/04/2020 03:36:23 What Was The Date Of [...] mcg/0.3 mL dose 1 completed Not Available [facility] 05/25/2023 22:38:17 COVID-19, mRNA, LNP-S, PF, 30 mcg/0.3 mL dose 1 completed Not Available [facility] 05/25/2023 22:38:17 COVID-19, mRNA, LNP-S, PF, 30 mcg/0.3 mL dose 1 completed Not Available [facility] 05/25/2023 22:38:17 COVID-19, mRNA, LNP-S, PF, 30 mcg/0.3 mL dose 2 completed Not Available [facility] 05/25/2023 22:38:17 Influenza, split virus, quadrivalent, preservative 1 completed Not Available [facility] 05/25/2023 22:38:16 Influenza, split virus, quadrivalent, preservative 2 completed Not Available [facility] 05/25/2023 22:38:16 COVID-19, mRNA, LNP-S, PF, 30 mcg/0.3 mL dose 2 completed Not Available [facility] 05/25/2023 22:38:17 SARS-COV-2 (COVID-19) vaccine, UNSPECIFIED 4 completed SACHA NARANJO [address] [place], [address], [facility] 04/07/2024 11:56:48 influenza, unspecified formulation 4 completed SACHA NARANJO [address] [place], [address], [facility] 04/07/2024 11:57:02 Respiratory syncytial virus (RSV) vaccine, unspecified 3 completed Princess young [facility] 04/30/2024 08:56:50 influenza, unspecified formulation 3 completed Princess Tejada hannah [facility] 04/30/2024 08:57:18 SARS-COV-2 (COVID-19) vaccine, UNSPECIFIED 3 completed Princess Tejada hannah, [facility] 04/30/2024 08:57:34 pneumococcal, unspecified formulation 7 completed Not Available [facility] 05/25/2023 22:38:17 pneumococcal, unspecified formulation 3 completed Not Available [facility] 05/25/2023 22:38:17 Tdap 9 completed Not Available [facility] 05/25/2023 22:38:17 zoster recombinant 9 completed Not Available [facility] 05/25/2023 22:38:17 Influenza, split virus, quadrivalent, preservative 0 completed Not Available [facility] 05/25/2023 22:38:16 Past Encounters Encounter ID Performer Location Encounter Start Date Encounter Closed Date Diagnosis/Indication Diagnosis SNOMED-CT Code Diagnosis ICD10 Code [id number] SACHA NARANJO [facility] [address] [facility] [address] 04/07/2024 11:35:47 04/07/2024 15:28:48 Type 2 diabetes mellitus 08510230 E11.42 Anxiety 07519824 F41.1 Aortic valve stenosis 60 625379 I35.0 Essential hypertension 66350268 I10 Health Concerns Section Related Observation LastModified by Organization Detai ls LastModified Time None Recorded Concern Status LastModified by Organization Details LastModified Time None Recorded Payers Encounter Date Sequence Insurance Name Policy Number Policy Chan Covered Member ID Chan Member ID Guarantor Name 04/07/2024 1 [place] [employer] [employer] [facility] Puneet Nighat [id number] Gail D Nighat 04/07/2024 2 [place] [id number] Gail Nighat [id number] Gail D Nighat Notes Date Note Type Note Provider Name a nd Address Organization Details Recorded Time 4 text/html 3 mos f/u thyroid biospy: [...] for longer walks declined PT SACHA NARANJO [address] [place] [address], [phone], [facility] 04/07/2024 12:30:25 OBGyn Episode No OBEpisode recorded.
[2024-07-04 10:40] LABS: MANUAL DIFF FLAG NO
[2024-07-04 10:51] LABS: Basophils Percent Auto 0.4 % (0-2); Eosinophils Absolute Auto 0.1 X10*3/uL (0.0-0.4); Eosinophils Percent Auto 2.2 % (0-4); Hematocrit 38.2 % (37.0-47.0); Hemoglobin 12.5 g/dl (12.0-16.0); Imm Gran Abs Auto 0.01 X10*3/uL (0.00-0.03); Imm Gran Pct Auto 0.2 % (0.0-0.4); Lymphocytes Absolute Auto 2.3 X10*3/uL (1.2-4.9); Lymphocytes Percent Auto 42.2 % (20-40); Mean Corpuscular HGB Conc 32.7 g/dl (31.0-35.0); Mean Corpuscular Hemoglobin 32.6 pg (27.0-33.0); Mean Corpuscular Volume 99.5 fL (80.0-98.0); Mean Platelet Volume 10.3 fL (9.4-12.3); Monocytes Absolute Auto 0.4 X10*3/uL (0.1-1.2); Monocytes Percent Auto 6.8 % (2-11); Neutrophils Absolute Auto 2.7 x10*3/uL (2.0-8.3); Neutrophils Percent Auto 48.2 % (45-73); Platelet Count 201 X10*3/uL (160-400); Red Blood Count 3.84 X10*6/uL (4.20-5.50); Red Cell Distribution Width 13.3 % (11.0-16.0); White Blood Count 5.6 X10*3/uL (4.8-10.8)
[2024-07-04 11:05] LABS: Alanine Aminotransferase 20 U/L (0-31); Albumin Level 4.3 g/dL (3.5-5.0); Alkaline Phosphatase 72 U/L (39-117); Anion Gap 13 (12-20); Aspartate Amino Transferase 34 U/L (5-31); Bilirubin Total 0.6 mg/dL (0.0-1.0); Blood Urea Nitrogen 13 mg/dL (9-16); Calcium 10.1 mg/dL (8.4-10.2); Carbon Dioxide 28 mmol/L (22-29); Chloride 104 mmol/L (96-108); Estimated Glomerular Filt Rate > 60; Glucose Random 100 mg/dL (60-115); Potassium 4.1 mmol/L (3.3-5.1); Sodium 141 mmol/L (135-145); Total Protein 7.3 g/dL (6.5-8.0)
[2024-07-04 11:10] LABS: Estimated Average Glucose 146 mg/dL; Hemoglobin A1C 161.3134 umol/L; Hemoglobin A1c % 6.7 % (<6.0); Total Hemoglobin (HGBA1C) 3251.6548 umol/L
== END 2024-07-04 08:21 | disposition home or self-care (01) ==
LOC: HO.10HDL 08:20
PROVIDERS: Visit Provider Physician Assistant
DX: E11.42 Type 2 diabetes mellitus with diabetic polyneuropathy (principal)
CPT/HCPCS: 36415; 80053; 83036; 85025

== ENCOUNTER 2024-10-02 09:21 | Outpatient (REF) | payer MEDICARE, SELFPAY ==
--- OUTSIDE RECORDS SUMMARY | 2024-10-02 09:52 | XMS_ITS ---
Author Organization [facility] [place] Address [address] [place] [address] Care Team Providers Care Master Plumber Name Role Phone Clyde COTE, Trever Primary Care Provider Unavailabl e Black, Suri Unavailable [phone] Allergies Allergen (clinical drug ingredient) Drug/Non Drug [...] Ordered Date Performed Result Body Sit e 11117-DONJ SKIN LESIONS, 2 TO 4 04/07/2024 N/A R4007-LFJHZRIX DYSTROPHIC NAILS ANY # 04/07/2024 N/A Encounters Encounter Location Date Provider Diagnosis [facility] [address] [address] 04/07/2024 Suri Black Type 2 diabetes mellitus [...] INSTRUCTIONS.pdf) Pending Test Test Name Order Date 07560-LQEF SKIN LESIONS, 2 TO 4 04/07/20 24 K5670-WWEGGNYL DYSTROPHIC NAILS ANY # Next Appt Details Follow Up: 3 Months, Reason: Provider Name:Suri Kerr , 10/27/2024 11:30:00 AM, [address] [place], [address], Procedure Notes * Category Sub-Category Detail Notes Keratoma Treatment Parring or Cutting o f Benign Hyperkeratotic Lesion(s) 82351 (2-4 Lesions) - The Benign hyperkeratotic lesions, [...] * Erma DISLAaDOB:1935 ([age] yo F)Acc No.[id number]:04/07/2024 Progress Note Patient:?Gail Disla Provider:?Suri Kerr DPM :1935???Age:89 Y???Sex:Female D ate:04/07/2024 Address:[address] [place], [place] [address] Pcp:Trever Tang MD Subjective: * Chief Complaints: [...] yes, housework, walking. ?Marital status: . ?Occupation: Retired-[employer] ???. * Medications:?TakingVitamin D 3 Lisinopril 10 [...] 6.8 * Examination: ???Ophthalmology Referral: ?DIABETES EYE EXAM?Diabetic Retinopathy Screening:?Yes ?Findings of Diabetic Eye Exam:?no retinopathy?Neurological: ?SENSORY:?Neurological exam demonstrates, reduced light touch sensation, [...] for office visit today.?ORIENTED:?person, place, and time.?FOOT EXAM:?Lower Extremity Neurological Exam performed:?Yes No changes to the above exam findings since last visit ?Date?04/07/2024 ?Sensory testing performed:?sensations diminished ?Sensory and motor testing performed:?sensations diminished ?Pedal pulse taking performed:?2+ ?Footwear Evaluation?Footwear Evaluation performed:?Yes??? Assessment: * Assessment: 1.?Type 2 diabetes mellitus with diabetic polyneuropathy - E11.42?2.?Other hammer toe(s) (acquired), left foot - M20.42, Chronic problem, Worse (4),Rx Management (4)?3.?Other hammer toe(s) (acquired), right foot - M20.41 (Primary), Chronic problem, Worse (4),Rx Management (4)? Plan: * Treatment: 2.?Type 2 diabetes mellitus with diabetic polyneuropathy?Procedure: 79662-ZZDC SKIN LESIONS, 2 TO 4 ?Procedure: O1696-OBHQKOFC DYSTROPHIC NAILS ANY # * Procedures:?Keratoma Treatment:?Parring or Cutting of Benign Hyperkeratotic Lesion(s)?59036 (2-4 Lesions) - The Benign hyperkeratotic lesions, as described above were pared, and/or cut utilizing a sterile #15 blade, tissue nippers, and/or dremel.?Nail Reduction:?Nail Reduction?Trimming of dystrophic nails performed to reduce/remove overall nail length and girth, by manual and electrical means with use of a nail nipper and/or dremel, to more viable healthy nail plate or bed tissue 6-10 (G0127).? * Procedure Codes:?90468 TRIM SKIN LESIONS, 2 TO 4, Modifiers: [...] Provider:?Suri Kerr DPM Date:?2023 Generated for Sudhir murry/Sebastián/Bonysmkatiana on:?10/02/2024 09:52 AM EDT History and Physical Notes * HPI (History [...] SUB MTH (s), 1 , Left Orthopedic FOOTWEAR EVALUATION: worn, non-s upportive, shoe gear properties exacerbate patient's foot/toe deformity [...]
--- OUTSIDE RECORDS SUMMARY | 2024-10-02 09:52 | XMS_ITS | Patient Health Record ---
Author Organization [facility] Address [address] [place] [address] Care Team Providers Care Event Sales Manager Name Role Phone Trever Tang MD Primary Care Provider Unavailabl e Black, Suri Unavailable [phone] Allergies Allergen (clinical drug ingredient) Drug/Non Drug [...] Range Notes HEMOGLOBIN A1C (GLYCOHEMOGLO BIN) Reviewed date:04/07/2024 09:09:42 AM Interpretation: Performing Lab: Notes/Report: TOTAL HEMOGLOBIN (HGBA1C) 6.8 HEMOGLOBIN A1C (GLYCOHEMOGLO BIN) Reviewed date:07/24/2024 11:23:03 AM Interpretation: Performing Lab: Notes/Report: HEMOGLOBIN A1C % (HH) 6.7 Reason For Referral No Information Medications Medication SIG (Take, Route, Frequency, Duration) Notes Start Date End Date Status Rosuvastatin Calcium 40 MG 1 tablet Oral ly Once a day for 30 day(s) Active Atenolol 25 MG Orally Once a day Not-Taking metFORMIN HCl 500 MG 1 tablet with meals Orally Twice a day Active Extra Depth Orthopedic Shoes (1 Pair) with Customized Heat Molded Multidensity Innersoles (3 Pair) as directed Dx: NIDDM/Polyneuropathy (E11.42), Hammertoe Foot Deformity (M20.41,M20.42), Preulcerative Skin Lesion(s) (L85.1 Not-Taking Probiotic once daily Active Extra Depth Orthopedic Shoes (1 Pair) with Customized Heat Molded Multidensity Innersoles (3 Pair) as directed Dx: NIDDM/Polyneuropathy (E11.42), Hammertoe Foot Deformity (M20.41,M20.42), Preulcerative Skin Lesion(s) (L85.1 08/01/2018 Not-Taking Aspirin 81 MG Orally Once a day Active Night Splint AFO - L1930 as directed 03/07/2018 Not-Taking Extra Depth Orthopedic Shoes (1 Pair) with Customized Heat Molded Multidensity Innersoles (3 Pair) as directed Dx: NIDDM/Polyneuropathy (E11.42), Hammertoe Foot Deformity (M20.41,M20.42), Preulcerative Skin Lesion(s) (L85.1 11/17/2021 Not-Taking Flax Oil Xtra Not-Ta irma hydroCHLOROthiazide 12.5 MG Orally Once a day Not-Taking Extra Depth Orthopedic Shoes (1 Pair) with Customized Heat Molded Multidensity Innersoles (3 Pair) as directed Dx: NIDDM/Polyneuropathy (E11.42), Hammertoe Foot Deformity (M20.41,M20.42), Preulcerative Skin Lesion(s) (L85.1 04/07/2024 Active Physical Therapy . . . 2-3x/week for 3- 4 weeks 01/01/2018 Not-Taking Simvastatin 20 MG Orally Once a day Not-Taking Lisinopril 10 MG Orally Once a day Active Extra Depth Orthopedic Shoes (1 Pair) with Customized Heat Molded Multidensity Innersoles (3 Pair) as directed Dx: NIDDM/Polyneuropathy (E11.42), Hammertoe Foot Deformity (M20.41,M20.42), Preulcerative Skin Lesion(s) (L85.1 08/01/2017 Not-Taking Vitamin D3 Active Jamie Brace . . . . [...] week for 3- 4 weeks 06/14/2017 Not-Taking Immunizations Vaccine Route Administration Date Status Comme nts COVID-19 Pfizer BioNTech Vaccine Unknown 03/29/2021 Administered First Dose:07/30/2020 2nd dose:08/20/2020 Influenza Unknown 04/25/2017 Administered Influenza Unknown 03/31/2018 Administered Influenza Unknown 05/02/2019 Administered Influenza Unknown 03/29/2020 Administered Influenza Unknown 03/02/2021 Administered Influenza Unknown 03/02/2022 Administered Influenza Unknown 03/02/2023 Administered Social History Tobacco Use: Social History Observation Description Date Details (start date - stop date) Never Smoker NA - NA Alcohol Screen Question Answer Notes Did you have a drink containing alcohol in the p ast year? No Points 0 Interpretation Negative Tobacco use other than smoking: Question Answer Notes Are you an other tobacco user? No Tobacco Control (Standard) Question Answer Notes Tobacco use: Nonsmoker Section Notes: . . . . . . . . . . . . . . . . . . . . . . . . . . Problems Problem Type SNOMED Code ICD Code Onset Dates Problem Status W/U Status Risk Notes Problem Acquired hammer toe of right foot (7177712025156958 ) Other hammer toe(s) (acquired), right foot (M20.41) Active confirmed Problem Acquired hammer toe of left foot (1920285012768465 ) Other hammer toe(s) (acquired), left foot (M20.42) Active confirmed Problem Localized, primary osteoarthritis of the ankle and/or foot (059206511) Primary osteoarthritis, right ankle and foot (M19.071) Active confirmed Problem Polyneuropathy due to type 2 diabetes mellitus (996528712) Type 2 diabetes mellitus with diabetic polyneuropathy (E11.42) Active confirmed Vital Signs Blood pressure diastolic 70 mm Hg 07/24/2024 Height 5 ft 1 in in 07/24/2024 Blood pressure systolic 130 mm Hg 07/24/2024 Weight 164 lbs 07/24/2024 BMI 30.98 kg/m2 07/24/2024 Procedures Procedure Date Ordered Date Performed Result Body Sit e 04971-Nwcdqrti Plate 12/24/2023 N/A 89709-JEQY SKIN LESIONS, 2 TO 4 12/24/2023 N/A A5010-RKAOHYTX DYSTROPHIC NAILS ANY # 12/24/2023 N/A 32562-EOTA SKIN LESIONS, 2 TO 4 04/07/2024 N/A Z1808-CTHCPKHK DYSTROPHIC NAILS ANY # 04/07/2024 N/A 29395-MQNP SKIN LESIONS, 2 TO 4 07/24/2024 N/A E8412-LDXOGGQB DYSTROPHIC NAILS ANY # 07/24/2024 N/A Encounters Encounter Location Date Provider Diagnosis [facility] [address] 12/24/2023 Suri Black Type 2 diabetes mellitus with diabetic polyneuropathy E11.42 and Ingrown nail L60.[address] [address] 04/07/2024 Suri Black Type 2 diabetes mellitus with diabetic polyneuropathy E11.42 ; Other hammer toe(s) (acquired), left foot M20.42 and Other hammer toe(s) (acquired), right foot M20.[address] [address] 07/24/2024 Suri Black Type 2 diabetes mellitus with diabetic polyneuropathy E11.42 ; Other hammer toe(s) (acquired), right foot M20.41 and Other hammer toe(s) (acquired), left foot M20.42 Assessments Encounter Date Diagnosis (ICD Code) Assessment Notes Treatment Notes Treatment Clinical Notes Section Notes 12/24/2023 Type 2 diabetes mellitus with diabetic polyneuropathy (ICD-10 - E11.42) 12/24/2023 Ingrown nail (ICD-10 - L60.0) 04/07/2024 Type 2 diabetes mellitus with diabetic polyneuropathy (ICD-10 - E11.42) 07/24/2024 Other hammer toe(s) (acquired), right foot (ICD-10 - M20.41) 07/24/2024 Type 2 diabetes mellitus with diabetic polyneuropathy (ICD-10 - E11.42) 04/07/2024 Other hammer toe(s) (acquired), left foot (ICD-10 - M20.42) 07/24/2024 Other hammer toe(s) (acquired), left foot (ICD-10 - M20.42) 04/07/2024 Other hammer toe(s) (acquired), right foot (ICD-10 - M20.41) Patient Educated with: DIABETIC FOOT CARE INSTRUCTIONS. pdf (DIABETIC FOOT CARE INSTRUCTIONS. pdf) Plan Of Treatment Pending Test Test Name Order Date X ray : Foot, left 3V 01/01/2018 22317-Gvnwwrfp Plate 10/31/2018 30270-Eqvfaqna Plate 05/05/2019 64293-Fsohrkmm Plate 11/17/2021 66401-Uimrhzro Plate 12/24/2023 33965-Cijybvzw Plate Each Additional 31521, J0702- INJECT or DRAIN, JOINT/BUR SA 04/02/2017 17175-IOJL SKIN LESIONS, 2 TO 4 04/30/20 17 68294-IKLV SKIN LESIONS, 2 TO 4 07/30/19 18 97552-QEFR SKIN LESIONS, 2 TO 4 10/16/19 18 13472-UXET SKIN LESIONS, 2 TO 4 01/02/20 18 22020-VJBO SKIN LESIONS, 2 TO 4 08/01/19 19 91297-JHRV SKIN LESIONS, 2 TO 4 03/07/20 18 31871-JMVS SKIN LESIONS, 2 TO 4 05/20/20 18 40134-JHLH SKIN LESIONS, 2 TO 4 07/28/19 20 21427-KHVU SKIN LESIONS, 2 TO 4 04/26/20 20 82987-XOGK SKIN LESIONS, 2 TO 4 01/31/20 19 89305-DVBJ SKIN LESIONS, 2 TO 4 05/05/20 19 50784-GGQT SKIN LESIONS, 2 TO 4 07/29/19 21 65130-OKGL SKIN LESIONS, 2 TO 4 11/02/19 21 95981-GSRA SKIN LESIONS, 2 TO 4 01/21/20 56029-OMVA SKIN LESIONS, 2 TO 4 04/28/20 97013-ZATZ SKIN LESIONS, 2 TO 4 07/24/19 91395-DEBD SKIN LESIONS, 2 TO 4 04/07/20 12724-OKBX SKIN LESIONS, 2 TO 4 12/24/19 56034-JNNQ SKIN LESIONS, 2 TO 4 06/04/20 63840-RTUS SKIN LESIONS, 2 TO 4 09/13/19 44556-UIOE SKIN LESIONS, 2 TO 4 02/17/20 66106-DZDR SKIN LESIONS, 2 TO 4 08/11/19 92000-OMDC SKIN LESIONS, 2 TO 4 11/01/19 64053-LZJO SKIN LESIONS, 2 TO 4 11/18/19 11767-ADPL SKIN LESIONS, 2 TO 4 05/18/20 88204-WYRX SKIN LESIONS, 2 TO 4 08/24/19 15694-MBTT SKIN LESIONS, 2 TO 4 11/17/19 26240-RJKC SKIN LESIONS, 2 TO 4 02/23/20 13247-HGHX NAIL(S) 08/24/2022 51106-POFM NAIL(S) 05/18/2022 82916-HGWO NAIL(S) 08/11/2021 03370-YSVI NAIL(S) 02/16/2022 45118-KEWG NAIL(S) 11/17/2021 91439-URZP NAIL(S) 04/28/2021 22724-HCZC NAIL(S) 01/20/2021 80920-JZTG NAIL(S) 11/01/2020 94224-KWLJ NAIL(S) 07/29/2020 42838-ZWEW NAIL(S) 05/05/2019 77318-VHJB NAIL(S) 01/30/2019 63308-PRDZ NAIL(S) 04/26/2020 79399-DKGD NAIL(S) 07/28/2019 29227-MUQM NAIL(S) 05/20/2018 03038-GKJC NAIL(S) 03/07/2018 26299-SYNH NAIL(S) 08/01/2018 87369-WUUU NAIL(S) 10/31/2018 45796-APFD NAIL(S) 01/01/2018 64637-XUMM NAIL(S) 10/15/2017 47104-DEKH NAIL(S) 07/30/2017 31742-TEDU NAIL(S) 04/30/2017 L2577-JETVZZTG DYSTROPHIC NAILS ANY # L7618-LBYFPXWH DYSTROPHIC NAILS ANY # U9442-KHGGMGMQ DYSTROPHIC NAILS ANY # A5312-KUQBTWYM DYSTROPHIC NAILS ANY # T5850-GNMDFRWI DYSTROPHIC NAILS ANY # N6277-DJUQTOEH DYSTROPHIC NAILS ANY # W9917-KOBJBXUN DYSTROPHIC NAILS ANY # Next Appt Details Provider Name:Suri Kerr , 10/27/2024 11:30:00 AM, [address] [facility], [place], [address], Insurance Providers Payer Name Payer Address Payer Phone Subscriber Number Group Number Insured Name Patient Relationship to Insured Coverage Start Date Coverage End Date Medicare National [employer] [address] [place] [address] [id number] Gail Disla Self - patient is the insured [employer] [address] [place] [address] [id number] Gail Disla Self - patient is the insured Medical (General) History Medical History History ICD Code Back,Hip,and Knee pain CAD (Cholesterol) Diabetic Gall bladder problems High blood pressure Osteoporosis Scarlet fever Measles Mumps Chicken pox Surgical History Surgery Date(Month/Year) Appendectomy 10/2004 Gall bladder 2012 Carotid 11/2005 biopsy 01/2024
--- OUTSIDE RECORDS SUMMARY | 2024-10-02 09:52 | XMS_ITS | Data Portability ---
Author Organization [place] - [facility], Allergy Address [address] [place] [id number] Care Team Providers Care Coal Loader Name Role Phone IRAIS KATHERINE Primary Care Provider KATHERINE BRAXTON Referring Provider Assessment No assessment recorded. Plan of Treatment [...] Address Organization Details Recorded Time Acute sialoadenitis 113490645 Active 2023 SHANDRA HART MD [address], [phone], [facility] 12:29:37 Sialolithiasis 91631347 Active 2023 SHANDRA HART MD [address], [phone], [facility] 12:29:41 Problem Notes None recorded. Procedures Surgical History Date Name Laterality Status Provider Name and Address Organization Details Recorded Time 07/02/19 05 Appendectomy completed Rashad Santiago [facility] 11/29/2023 15:17:31 07/02/18 80 operation on gallbladder completed Rashad Santiago [facility] 11/29/2023 15:17:11 bilateral cataract surgery completed Rashad Santiago [facility] 11/29/2023 15:18:37 Imaging Results Imaging Date Name [...] Name and Address Organization Details Recorded Time 653861 sulfabenz amide Not available Not available Not available Not available 11/29/2023 66414 RxNorm Rashad Santiago [facility] 15:16:42 Medications Name Sig Start Date Stop [...] Updated DateTime 11/29/2023 157.48 cm 29.3 kg/m2 75997.78 g Rashad Santiago [place] [facility] 11/29/2023 15:21:09 Social History None recorded. Functional Status None recorded. Mental Status None recorded. Family History Nothing Reported. Medical History Condition Response Diabetes Y Arthritis Y Hypertension Y Anxiety Y Gynecological HistoryNo gynecological history recorded. Obstetrics History GPAL:G 0 P 0 0 0 0 Past Encounters Encounter ID Performer Location Encounter Start Date Encounter Closed Date Diagnosis/Indication Diagnosis SNOMED-CT Code Diagnosis ICD10 Code Diagnosis Note [id number] SHANDRA HART MD [facility] on [address] [place] [address] 11/29/2023 14:44:47 11/29/2023 15:54:04 Acute sialoadenitis 524319997 K11.21 Sialolithiasis 59296506 K11.5 88-year-ol d female presents today for evaluation of sialoadeni tis. Thankfully since she made the appointmen t her symptoms have resolved after 2 courses of antibiotic s including azithromyc in and cefazolin. She has had symptoms of sialolithi asis over the years. She has had acute sialoadeni tis periodical ly through the years, none requiring hospitaliz ation. She did see Dr. Martins about 10 years ago. She had a CT scan at [place] which I was able to review showing focal calcificat ions on the right parotid. On exam today, there is no swelling or induration over the parotid. Clear saliva is noted from bilateral Stensen's ducts. No stones palpated in the distal duct. Given it is years in between her infections requiring antibiotic s, I have not recommende d any aggressive interventi on. I did recommend regular salivary gland precaution s, including warm compresses , massage, adequate hydration. She is penicillin allergic, so I would recommend a cephalospo rin such as cefuroxime if she does become acutely infected. Health Concerns Section Related Observation LastModified by Organization Detai ls LastModified Time None Recorded Concern Status LastModified by Organization Details LastModified Time None Recorded Advance Directives Directive None Recorded Payers Encounter Date Sequence Insurance Name Policy Number Policy Chan Covered Member ID Chan Member ID Guarantor Name 11/29/2023 2 [place] [id number] Gail Puneet Nighat [id number] [place] D Nighat 11/29/2023 1 [place] [employer] Gail D Nighat [id number] Gail D Nighat Notes Date Note [...] ago. She had a CT scan at [place] which I was able to review showing focal calcifications on the right parotid. SHANDRA HART MD [address] [place] [address], [phone], [facility] - [facility] 12/02/2023 12:34:03 OBGyn Episode No OBEpisode recorded.
--- OUTSIDE RECORDS SUMMARY | 2024-10-02 09:53 | XMS_ITS ---
Author [facility] [place] Address [address] [place] [address] Care Team Providers Care Truck Mechanic Apprentice Name Role Phone Clyde COTE, Trever Primary Care Provider Unavailabl e Black, Suri Unavailable [phone] Allergies Allergen (clinical drug ingredient) Drug/Non Drug [...] Ordered Date Performed Result Body Sit e 28866-Vxfmdmho Plate 12/24/2023 N/A 00830-FLVF SKIN LESIONS, 2 TO 4 12/24/2023 N/A M8649-EYBPITTW DYSTROPHIC NAILS ANY # 12/24/2023 N/A Encounters Encounter Location Date Provider Diagnosis [facility] [address] [address] 12/24/2023 Suri Kerr Type 2 diabetes mellitus with diabetic polyneuropathy E11.42 and Ingrown nail L60.0 Assessments Encounter Date Diagnosis (ICD Code) Assessment Notes Treatment Notes Treatment Clinical Notes Section Notes 12/24/2023 Type 2 diabetes mellitus with diabetic polyneuropathy (ICD-10 - E11.42) 12/24/2023 Ingrown nail (ICD-10 - L60.0) Plan Of Treatment Pending Test Test Name Order Date 45212-Skovwzyl Plate 12/24/2023 41804-FRJG SKIN LESIONS, 2 TO 4 12/24/19 M7202-EWBNRKKA DYSTROPHIC NAILS ANY # Next Appt Details Follow Up: 2 Weeks, Reason: Provider Name:Suri Kerr , 10/27/2024 11:30:00 AM, [address] [place] [address], [phone], Procedure Notes * Category Sub-Category Detail Notes [...] Motrin was recommended for pain or discomfort (64885) , DIABETES: Matricectomy deferred at this time due to diabetes risk Anesthesia was deferred - NEURO MACY: patient has medically documented neuropathic condition affecting sensation Location Lateral nail border , T5 Keratoma Treatment Parring or Cutting o f Benign Hyperkeratotic Lesion(s) 98266 (2-4 Lesions) - The Benign hyperkeratotic lesions, [...] * Erma DISLAMelonieB:1935 ([age] yo F)Acc No.[id number]:12/24/2023 Progress Note Patient:?Gail Disla Provider:?Suri Kerr DPM :1935???Age:88 Y???Sex:Female D ate:12/24/2023 Address:[address] [place], [place] [id number] Pcp:Trever Tang MD Subjective: * Chief Complaints: [...] 6.7 * Examination: ???Ophthalmology Referral: ?DIABETES EYE EXAM?Diabetic [...] - L60.0? Plan: * Treatment: 2.?Ingrown nail?Procedure: 37629-Hvgvnhpq Plate * Procedures:?Keratoma Treatment:?Parring or Cutting of Benign Hyperkeratotic Lesion(s)?67459 (2-4 Lesions) - The Benign hyperkeratotic lesions, [...] Motrin was recommended for pain or discomfort (96240) , DIABETES: Matricectomy deferred at this time due to diabetes risk.?Nail Reduction:?Nail Reduction?Trimming of dystrophic nails performed to reduce/remove overall nail length and girth, by manual and electrical means with use of a nail nipper and/or dremel, to more viable healthy nail plate or bed tissue 6-10 (G0127).? * Procedure Codes:?15109 TRIM SKIN LESIONS, 2 TO 4, Modifiers: XS 15231 Avulsion Plate, Modifiers: T5 G0127 TRIMMING DYSTROPHIC NAILS ANY #, Modifiers: XS * Follow Up:?2 Weeks * Images: * Sign off status: Completed true * Provider:?Suri Kerr DPM Date:?2023 Generated for Sudhir murry/Sebastián/Huy on:?10/02/2024 09:53 AM EDT History and Physical Notes * [...]
--- OUTSIDE RECORDS SUMMARY | 2024-10-02 09:53 | XMS_ITS | Data Portability ---
Author Organization [facility], Home Service Address [address] [place] [address] Assessment Encounter Date Assessment Date Assessment LastModified by Organization Details LastModified Time 12/17/2023 12/17/2023 The patient denies recent falls [...] Time Details Appointments FOLLOW UP 15 2024 11:15A M SACHA NARANJO Not available Not available Not available Lab CMP, serum or plasma 2023 024 [facility], [address] [place] [address], [id number], 07/07/2024 11:51:49 hemoglobi n A1c, QN, blood 2023 024 [facility], [address] [place] [address], [id number], 07/07/2024 11:51:49 CBC w/ auto diff 2023 024 [facility], [address] [place] [address], [id number], 07/07/2024 11:51:50 CMP, serum or plasma 2024 025 [facility], [address] [place] [address], [id number], 07/07/2024 11:51:49 hemoglobi n A1c, QN, blood 2024 025 [facility], [address] [place] [address], 21445, 07/07/2024 11:51:49 CBC w/ auto diff 2024 025 [facility], [address] [place] [address], [id number], 07/07/2024 11:51:50 hemoglobi n A1c, QN, blood 2023 024 [facility], [address] [place] [address], [id number], 09/10/2023 12:07:15 hemoglobi n A1c, QN, blood 2023 024 [facility], [address] [place] [address], [id number], 12/12/2023 11:32:33 hemoglobi n A1c, QN, blood 2023 024 [facility], [address] [place] [address], [id number], 12/17/2023 10:29:28 lipid panel, blood 2023 024 [facility], [address] [place] [address], [id number], 09/10/2023 12:07:15 CMP, serum or plasma 2023 024 [facility], [address] [place] [address], [id number], 09/10/2023 12:07:14 CBC w/ auto diff 2023 024 [facility], [address] [place] [address], [id number], 09/10/2023 12:07:15 CMP, serum or plasma 2023 024 [facility], [address] [place] [address], 549[address], 12/12/2023 11:32:32 lipid panel, blood 2023 024 [facility], [address] [place] [address], [id number], 09/10/2023 12:07:15 CBC w/ auto diff 2023 024 [facility], [address] [place] [address], [id number], 12/12/2023 11:32:33 CMP, serum or plasma 2023 024 [facility], [address] [place] [address], [id number], 03/25/2024 11:36:37 CBC w/ auto diff 2023 024 [facility], [address] [place] [address], [address], 12/17/2023 10:29:28 CMP, serum or plasma 2023 024 [facility], [address] [place] [address], [place], [address], 03/25/2024 11:36:36 Referral ENT surgery referral - STAT- 2ND FAX 2023 [facility] , [address], [address], [place], [address], 11/05/2023 08:25:32 Procedures None recorded. Surgeries None recorded. Imaging None recorded. Medication Orders cephalexi n 500 mg capsule 2023 [id number], [address], [place], [phone], 04/07/2024 11:44:54 diclofena c sodium 75 mg tablet,de layed release 2023 024 [facility] #[id number], [address], [place], [id number], 10/22/2023 10:01:28 Patient TargetsNo targets recorded. Patient InstructionsNo instructions recorded. Reason for Referral ENT Surgery Referral for Par otid swelling significant parotid gland swelling and pain, no improvement with conservative means, very painful STAT- 2ND FAX Referring Physician: Xochitl Rodrigez, Internal Medicine, Encounter Date: 10/22/2023 Results Created Date Observation Date Name Description Value Unit Range Abnormal Flag Note LastModifiedBy Organization Detail LastModifiedTime 10/31/19 24 10/24/2023 US, keisha stern No observ ation record ed. [facility] Central Scheduling [address] [place] [address], [place], [address], 12/17/2023 10:29:25 11/30/19 24 11/30/2023 biops y, thyro id, ultra sound lashawn nce (PROC ) No observ ation record ed. [facility] (Intervention al Radiology) [address] [facility], [place], [address], 12/17/2023 10:29:25 Result Notes None recorded. 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 404870151777 105 Active 2020 Not Available [facility] 3 22:38:14 COVID-19 321956385 Active 2021 Not Available [facility] 3 22:38:16 Type 2 diabetes mellitus 06249967 Active 2021 Not Available [facility] 3 22:38:15 Trigger finger of right hand 399092044375 10087 Active 2021 Not Available [facility] 3 22:38:14 Bilateral trigger fingers 812882963073 46413 Active 2021 Not Available [facility] 3 22:38:14 Transient cerebral ischemia 283083455 Active 2021 Not Available [facility] 3 22:38:14 Essential tremor 691267330 Active 2022 Not Available [facility] 3 22:38:15 Allergic rhinitis 77606110 Active 2022 Not Available [facility] 3 22:38:15 Hyperpara thyroidis m 99780993 Active 2022 Not Available [facility] 3 22:38:16 Osteoporo sis 46351819 Active 2022 Not Available [facility] 3 22:38:16 Chronic sinusitis 30174633 Active 2023 SACHA NARANJO [address] [place], [address], [facility] 4 09:46:26 Parotid swelling 875517243 Active 2023 SACHA NARANJO [address] [place], [address], [facility] 4 09:25:24 Thyroid nodule 298251527 Active 2023 SACHA NARANJO [address] [place], [address], [facility] 4 15:47:47 Aortic valve stenosis 36875346 Active 2017 Not Available [facility] 3 22:38:15 Diverticu litis 517293959 Active 2017 Not Available [facility] 3 22:38:14 Essential hypertens ion 80543506 Active 2017 Not Available [facility] 3 22:38:15 Hyperchol esterolem ia 96974632 Active 2017 Not Available [facility] 3 22:38:14 Osteoarth ritis 467537095 Active 2017 Not Available [facility] 3 22:38:15 Anxiety 77845898 Active 2017 Not Available [facility] 3 22:38:15 Diabetes mellitus 04401516 Active 2017 Not Available [facility] 3 22:38:16 Notes:Some problems listed i n Document: #[id number] could not be added to this patient's chart. Please review this document and add these problems to the patient's chart manually as needed. Problem Notes None recorded. Procedures Surgical History Date Name Laterality Status Provider Name and Address Organization Details Recorded Time 009 Lens, intraocular (new tech) completed Radha Morales NP, S [address] [place] [address], [address], [facility] 11/28/2017 08:50:18 006 Carotid Endarterectomy completed Radha Morales NP, [address] [place] [address], [address], [facility] 11/28/2017 08:49:27 01/01/2 005 Appendectomy completed Radha Morales NP, S [address] [place], [address], [place] [facility] 11/28/2017 08:49:42 Imaging Results Imaging Date Name Status LastModified by Organiz ation Details LastModified Time 10/24/2023 US, parathyroid completed [facility] Central Scheduling [address] [place], [address], 12/17/2023 10:29:25 11/30/2023 biopsy, thyroid, ultrasound guidance (PROC) completed [facility] (Interventional Radiology) [address] [place], [address], 12/17/2023 10:29:25 Procedure Notes None recorded. Medical Equipment None Reported. Allergies Allergen ID Allergen Name Allergen Category Reaction Reaction Severity Criticality Documentation Date Start Date Code Code System Note Provider Name and Address Organization Details Recorded Time 1465 Celebrex medicatio n Not available Not available Not available 11/27/2017 89902 7 RxNorm [facility]ifallon [facility] 8 15:18:51 1466 Vioxx medicatio n Not available Not available Not available 11/27/2017 11759 9 Rx[facility] 8 15:19:05 1467 Product containin g penicilli n (product) medicatio n Not available Not available Not available 11/27/2017 67517 8001 SNOMED [facility] 8 15:19:14 1468 Substance with sulfonami de structure and antibacte rial mechanism of action (substanc e) medicatio n Not available Not available Not available 11/27/2017 80040 8003 SNOMED Padmini Pappasickzayra young [facility] 8 15:19:24 2908 codeine medicatio n Not available Not available Not available 09/13/2018 2670 RxNorm Trever Tang, DO [address] [place], [address], [facility] 9 09:56:46 3233 Percodan medicatio n Not available Not available Not available 01/22/2019 88371 RxNorm Yaneth young, [facility] 9 14:46:45 3234 acetamino phen / oxycodone medicatio n Not available Not available Not available 01/22/2019 68463 3 RxNorm Yaneth young, [facility] 9 14:46:50 3235 morphine medicatio n Not available Not available Not available 01/22/2019 7052 RxNorm Yaneth young, [facility] 9 14:48:01 3236 Lipitor medicatio n Not available Not available Not available 01/22/2019 98381 5 RxNorm Yaneth young, [facility] 9 14:48:20 5604 meloxicam medicatio n abdominal pain severe Not available 09/19/2021 98530 RxNorm SACHA NARANJO [address] [place], [address], [facility] 2 14:22:13 7550 glimepiri de medicatio n Not available Not available Not available 06/01/2023 81395 RxNoSACHA Hester [address] [place], [address], [facility] 3 15:52:49 Medications Name Sig Start Date Stop Date Status Note LastModified by Organization Details LastModified Time alprazola m 0.25 mg tabs 12/16 completed Not Available Not Available Not Available tizanidin e hydrochlo ride 4 mg tabs [...] 1 CAPSULE BY MOUTH EVERY DAY DIRECTED 07/09 completed Not Available Not Available Not Available sertralin e 25 mg tablet TAKE [...] Shingrix (PF) 50 mcg/0.5 mL intramusc ular lisa brown kit 12/13 completed Not Available Not Available [...] Updated DateTime 4 156.21 cm 32 kg/m2 56004.8 9 g 78 /min 97 % 97 % 130 mm[Hg] 78 mm[Hg] Imelda Parmar [facility] 4 09:25:50 Date Recorded Body height Body mass index (BMI) Body weight Heart rate Respiratory rate Body temperature Oxygen saturation Oxygen saturation in Arterial blood by Pulse oximetry Systolic blood pressure Diastolic blood pressure Provider Name and Address Organization Details Last Updated DateTime 4 156.21 cm 32 kg/m2 48764.8 9 g 95 /min 16 /min 97.6 [degF] 98 % 98 % 128 mm[Hg] 82 mm[Hg] SACHA NARANJO [address] [place], [address] 4 09:41:44 Date Recorded Body height Body mass index (BMI) Body weight Heart rate Oxygen saturation Oxygen saturation in Arterial blood by Pulse oximetry Systolic blood pressure Diastolic blood pressure Provider Name and Address Organization Details Last Updated DateTime 4 156.21 cm 31 kg/m2 71220.9 3 g 81 /min 97 % 97 % 130 mm[Hg] 70 mm[Hg] Imelda Parmar [facility] 4 10:09:21 Date Recorded Body height Body mass index (BMI) Body weight Heart rate Oxygen saturation Oxygen saturation in Arterial blood by Pulse oximetry Systolic blood pressure Diastolic blood pressure Provider Name and Address Organization Details Last Updated DateTime 4 156.21 cm 31.4 kg/m2 09418.3 9 g 83 /min 98 % 98 % 122 mm[Hg] 72 mm[Hg] Princess Tejada [facility] 4 11:47:44 Date Recorded Body height Body mass index (BMI) Body weight Heart rate Oxygen saturation Oxygen saturation in Arterial blood by Pulse oximetry Systolic blood pressure Diastolic blood pressure Provider Name and Address Organization Details Last Updated DateTime 5 156.21 cm 29.9 kg/m2 98856.9 3 g 92 /min 97 % 97 % 136 mm[Hg] 84 mm[Hg] Princess Tejada [facility] 5 11:32:10 Social History Question Answer Notes LastModified by [employer] ion Details LastModified Time Tobacco Smoking Status Former Smoker Not Available [facility] 05/04/2020 03:36:23 What Was The Date Of Your Most Recent Tobacco Screening? 07/09/2024 [email or web address] Information not available 07/09/2024 Sex: Unknown Functional Status None recorded. Mental Status None recorded. Family History Nothing Reported. Medical History No medical history recorded. Gynecological HistoryNo gynecological history recorded. Obstetrics History GPAL:G 0 P 0 0 0 0 Immunizations Vaccine Type Date Status Note Provider Nam e and Address Organization Details Recorded Time COVID-19, mRNA, LNP-S, PF, 30 mcg/0.3 mL dose 1 completed Not Available [facility] 05/25/2023 22:38:17 COVID-19, mRNA, LNP-S, PF, 30 mcg/0.3 mL dose 1 completed Not Available [facility] 05/25/2023 22:38:17 COVID-19, mRNA, LNP-S, PF, 30 mcg/0.3 mL dose 1 completed Not Available [facility] 05/25/2023 22:38:17 COVID-19, mRNA, LNP-S, PF, 30 mcg/0.3 mL dose 2 completed Not Available [facility] 05/25/2023 22:38:17 Influenza, split virus, quadrivalent, preservative 1 completed Not Available [facility] 05/25/2023 22:38:16 Influenza, split virus, quadrivalent, preservative 2 completed Not Available [facility] 05/25/2023 22:38:16 COVID-19, mRNA, LNP-S, PF, 30 mcg/0.3 mL dose 2 completed Not Available [facility] 05/25/2023 22:38:17 SARS-COV-2 (COVID-19) vaccine, UNSPECIFIED 4 completed SACHA NARANJO [address] [place] [address], [address], [facility] 04/07/2024 11:56:48 influenza, unspecified formulation 4 completed SACHA NARANJO [address] [place] [address], [address], [facility] 04/07/2024 11:57:02 Respiratory syncytial virus (RSV) vaccine, unspecified 3 completed Princess young [facility] 04/30/2024 08:56:50 influenza, unspecified formulation 3 completed Princess young [facility] 04/30/2024 08:57:18 SARS-COV-2 (COVID-19) vaccine, UNSPECIFIED 3 completed [facility] 04/30/2024 08:57:34 pneumococcal, unspecified formulation 7 completed Not Available [facility] 05/25/2023 22:38:17 pneumococcal, unspecified formulation 3 completed Not Available [facility] 05/25/2023 22:38:17 Tdap 9 completed Not Available [facility] 05/25/2023 22:38:17 zoster recombinant 9 completed Not Available [facility] 05/25/2023 22:38:17 Influenza, split virus, quadrivalent, preservative 0 completed Not Available [facility] 05/25/2023 22:38:16 Past Encounters Encounter ID Performer Location Encounter Start Date Encounter Closed Date Diagnosis/Indication Diagnosis SNOMED-CT Code Diagnosis ICD10 Code Diagnosis Note [id number] Radha Morales NP, S [facility] [address] [place] [address],[place] [address] 11/28/2017 08:57:40 11/28/2017 10:17:03 Diabetes mellitus 58160814 E11.9 Urine looks dark 7601683 7 R82.99 Hyperkalemia 86942434 E8 7.5 off HCTZ, await labs drawn yesterday Essential hypertension 11763917 I10 stable Aortic valve stenosis 60 292733 I35.0 stable Anxiety 56079447 F41.9 well controlled Osteoarthritis 352918697 M19.90 using ankle brace Urobilinog en concentration, dipstick - finding 896084180 R82.99 await labs, follow [id number] Radha Morales NP, S [facility] [address] [facility], [place] [address] 02/27/2018 09:07:52 02/27/2018 16:42:09 Anxiety 69480285 F41.9 well controlled Essential hypertension 45500103 I10 stable Aortic valve stenosis 60 726095 I35.0 stable, up to date echo Diabetes mellitus 885180 09 E11.9 A1C continues to improve Persistent insomnia 1919 30519 G47.09 f/u 3-4 weeks [id number] Radha Morales NP, S [facility] [address] [facility], [place] [address] 05/27/2018 09:53:36 05/28/2018 08:44:47 Osteoarthritis of multiple joints 992627610 M15.9 Hypercalcemia 28382454 E 83.52 Anxiety 23388849 F41.9 well controlled Essential hypertension 96550469 I10 stable Aortic valve stenosis 60 468600 I35.0 stable, up to date echo Diabetes mellitus 415034 09 E11.9 follow [id number] Radha Morales NP, [place] [facility] [address] 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, [place] [address] 08/28/2018 08:52:19 08/28/2018 10:08:13 Essential hypertension 85726307 I10 stable Aortic valve stenosis 60 485062 I35.0 to verify date last echo Diabetes mellitus 977769 09 E11.9 follow A1C improved to 7.1 from 7.6 Anxiety 35582312 F41.9 well controlled Osteoarthritis 813553233 M19.90 using ankle brace, improved pIN Hypercholesterolemia 136 60617 E78.00 follow Hypercalcemia 47917314 E 83.52 nml bone scan, PTH-I, asymptomat ic- follow Strain of trapezius muscle 774888467 S46.811A D/C IBU, use topical rub Active or passive immunization 616337509 Z23 [id number] Trever Tang [facility] [address] [facility],[place] [address] 09/13/2018 09:36:07 09/13/2018 10:19:48 Essential hypertension 02402728 I10 stable despite the pain Diabetes mellitus 494105 09 E11.9 doing ok overall Thoracic back pain 67504 8004 M54.6 progressiv e pinpoint pain at T 5-6 on the right [id number] Trever Tang DO [facility] [address] [facility] [place] [address] 09/24/2018 09:21:56 09/24/2018 10:06:50 Essential hypertension 29598424 I10 stable and no issues Aortic valve stenosis 60 684540 I35.0 as noted last echo looked good Diabetes mellitus 393005 09 E11.9 doing ok overall last lab reviewed Thoracic spondylosis 387 446799 M47.814 doing better overall no major pathology on xray conserv treatment when sore [id number] Trever Tang DO [facility] [address] [facility],[place] [address] 12/13/2018 15:54:36 12/13/2018 16:33:11 Essential hypertension 44064367 I10 stable and no issues Diabetes mellitus 457762 09 E11.9 doing ok overall last lab reviewed no problerms with the meds a1c is pending [id number] [facility] [address] [facility],Gallo itlivia Stern [facility] [address] 01/22/2019 14:37:37 01/22/2019 15:52:54 Hypercholesterolemia 17808955 E78.00 change simvastati n to crestor Essential hypertension 51809254 I10 stable Diabetes mellitus 623279 working on diet now on metformin has labs for dm at [facility], will go there Transient cerebral ischemia 551997877 G45.9 based on descriptio n of mk, it is very likely she had TIA, will do stroke work up going to change simvastati n to crestor for secondary stroke prevention continue asa 81 mg qd [id number] [facility] [address] [facility],[place] [address] 03/10/2019 16:11:15 03/10/2019 16:44:15 Essential hypertension 16448494 I10 symptoms with low blood pressure cut atenolol in half and recheck in 2 weeks Anxiety 95447514 F41.9 Diabetes mellitus 605907 working on diet now on metformin has labs for dm at [facility], will go there has been doing much better with diet [id number] [facility] [address] [facility],[place] [address] 03/21/2019 09:11:00 03/21/2019 10:40:25 Orthostatic hypotension 47658834 I95.1 Essential hypertension 46790048 I10 Diabetes mellitus 609286 continue working on healthy sugar [id number] [facility] [address] [facility],[place] [address] 04/07/2019 08:54:16 04/07/2019 09:48:08 Hypercholesterolemia 60685650 E78.00 change simvastati n to crestor and recheck Anxiety 73687517 F41.9 improved Essential hypertension 52862166 I10 stable Diabetes mellitus 992736 continue working on healthy sugar Active or passive immunization 132567025 Z23 gets really bad reaction to vaccines very red and painful and hot to touch as well as swollen and it lasts about a week thinks she will have flu shot but declines any other vaccines Body mass index 30+ - obesity 456130214 Z68.32 Advance care planning 71 7373795 Z71.89 HCP - daughter holden del toro [address] [facility] n - [phone] alternate son - lindsay del toro [id number] [facility] [address] [facility],[place] [address] 07/09/2019 09:53:40 07/09/2019 10:45:51 Diabetes mellitus 77238346 E11.65 continuing healthy diet and smaller portions Hypercholesterolemia 136 94904 E78.00 doing well with crestor Essential hypertension 38055958 I10 well controlled Sinus tachycardia 009347 01 R00.0 very well controlled at home Anxiety 45755873 F41.9 just in the middle of the night [id number] [facility] [address] [facility],[place] [facility] [place] [address] 10/01/2019 09:01:09 10/01/2019 10:52:52 Anxiety 89070242 F41.9 just in the middle of the night Low back pain 799922690 M54.5 back strain flared up rx tizanidine as she tolerated it well previously aware not to alprazolam while on this med Essential hypertension 45795441 I10 well controlled per home readings Diabetes mellitus 303489 09 E11.65 continuing healthy diet and smaller portions a1c 6.7 home fbs readings overal good lipids well controlled [id number] SACHA NARANJO [facility] [address] [facility],[place] [address] 10/10/2019 10:40:09 10/10/2019 12:01:21 Fall W19.XXXA the pt reports that she is gradually getting better, able to move all extremitie s without weakness or increased pain she is icing and elevating appropriat tatyana and using tyelnol every four hours she is treating everything appropriat tatyana discussed she can use tinazedine prescribed by AB at night before bed if she feels she is having muscle spasms/mus stephanie pain knows not to take with her benzo pt will report to office on Sunday if she is still having pain or worsening symptoms and we will do XRs then if needed the pt understand s and agrees with this plan Pain in left knee 910029 5865 14500 M25.562 as above Pain in ri ght lower limb 132580918 M79.604 as above [id number] SACHA NARANJO [facility] [address] [facility] [address] 12/17/2019 11:36:53 12/17/2019 14:26:40 Postural dizziness [id number] R42 the patient reports she gets these episodes when she is going from sitting to standing and that's when she gets lightheade d or weak orthostati cs revealed dropping BP going from laying to sitting to standing > 120> 110 > 100 and increasing HR will stop her BP medication and do a f/u to see how she is doing Lightheadedness [id number] 8 R42 will check some labs on her to r/o any underlying cause [id number] SACHA NARANJO [facility] [address] [facility],[place] [address] 01/07/2020 10:24:04 01/07/2020 11:37:24 Diabetes mellitus 53471617 E11.9 doing well will check lipids and Essential hypertension 49466079 I10 doing well off medication will follow murmur closely, has had for awhile, no change [id number] SACHA NARANJO [facility] [address] [facility],[place] [address] 04/14/2020 11:06:48 04/14/2020 12:02:49 Anxiety 95182650 F41.9 will start sertraline and see how she is doing with his anxiety Diabetes mellitus 390690 09 E11.9 stable right now working on diet knows what she needs to do [id number] SACHA NARANJO [facility] [address] [facility],[place] [address] 07/13/2020 08:10:14 07/13/2020 12:08:04 Intention tremor 62772411 G25.2 will wait for 3 mo fu to discuss what she feels like doing for it either medication (propranol ol) or seeing neuro Anxiety 63756131 F41.9 much improvemen t on the anxiety medication will continue at same dose for the time being Diabetes mellitus 328098 09 E11.9 stable right now working on diet her A1c is much improved Essential hypertension 86554486 I10 doing well off medication will follow murmur closely, has had for awhile, no change stable, and [place] [id number] Trever Tang DO [facility] [address] [facility],[place] [address] 08/24/2020 11:34:49 08/24/2020 12:29:56 Essential hypertension 81651529 I10 stable and no issues no change in meds Aortic valve stenosis 60 564525 I35.0 as noted last echo looked good will cont to follow [facility] periodic echo Diabetes mellitus 117916 09 E11.9 doing ok overall last lab reviewed no problems with the meds a1c is 6.6 and is much better Diverticulitis 754209063 K57.92 quiet and asymptomat ic bowels regular Peripheral sensory neuropathy due to type 2 diabetes mellitus 4522488244 04794 E11.42 [id number] SACHA NARANJO [facility] [address] [facility] [address] 09/27/2020 10:26:04 09/27/2020 14:32:59 Adult health examination 290262288 Z00.00 BP fine today labs are excellent Screening for cardiovascular system disease 225005279 Z13.6 cholestero l looked excellent Anxiety 33840859 F41.9 the patient had terrible nightmares with the sertraline will trial cymbalta as she also has pain due to osteo Diabetes mellitus 276714 09 E11.9 stable right now working on diet her A1c is much improved foot exam normal [id number] SACHA NARANJO [facility] [address] [facility] [address] 10/11/2020 09:28:22 10/11/2020 10:22:08 Diabetes mellitus 97578800 E11.9 stable right now working on diet her A1c is much improved foot exam normal Essential hypertension 06867613 I10 doing well off medication will continue to monitor will follow murmur closely, has had for awhile, no change stable, and no weakness or orthostati c hypertensi on Osteoarthritis 923988315 M19.90 disccussed diet and supplement s the patient can use will fu in 3 mo [id number] SACHA NARANJO [facility] [address] [facility],[place] [address] 01/24/2021 09:25:33 01/24/2021 11:24:43 Essential hypertension 21281299 I10 doing well off medication will continue to monitor will follow murmur closely, has had for awhile, no change stable, and no weakness or orthostati c hypertensi on Diabetes mellitus 146709 09 E11.9 stable right now working on diet her A1c is much improved foot exam normal Anxiety 20845817 F41.1 the patient reports that the duloxetine is doing well for her since we switched Loss of hair 526524132 L 63.8 wants to start the modinafil for hair lossdiscus sed starting with lab work first [id number] SACHA NARANJO [facility] [address] [facility],[place] [address] 04/26/2021 09:28:53 04/26/2021 15:12:59 Hypercholesterolemia 35952322 E78.2 stable Essential hypertension 31722898 I10 BP is elevated, patient is in pain and very anxious Diabetes mellitus 859059 09 E11.9 stable Chronic low back pain 27 9933060 M54.59 will fu with XRs Thoracic back pain 69776 8004 M54.6 will fu with XRs [id number] SACHA NARANJO [facility] [address] 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 stable Elderly fall 959126120 R 29.6 stable [id number] SACHA NARANJO [facility] [address] [facility] [address],[place] [address] 09/19/2021 09:21:48 09/21/2021 11:08:49 Gastritis 5225630 K29.60 resolvedwi ll call if symptoms return Mya 2293967 K92.1 resolvedwi ll call if symptoms return [id number] SACHA NARANJO [facility] [address] [facility] [address],[place] [address] 11/02/2021 13:31:30 11/07/2021 11:30:17 Essential hypertension 29830988 I10 BP is fine today Diabetes mellitus 477393 09 E11.9 stable Anxiety 05695329 F41.1 stable Hypercalcemia 49460540 E 83.52 will fu with recheck of calcium with PTH level [id number] SACHA NARANJO [facility] [address] [facility],[place] [address] 01/11/2022 10:09:26 01/11/2022 15:45:16 Trigger finger of right hand 1452972782 4398966 M65.321 will set up with prior hand surgeon Dr. Mckeon who the patient has done well with in the past [id number] SACHA NARANJO [facility] [address] [facility],[place] [address] 02/08/2022 10:23:58 02/08/2022 11:07:40 Advance care planning 778963867 Z71.89 advised against the shingles shot due to prior allergicad vised flu shot end of mar, early to get her through the flu season Type 2 larisa betes mellitus 88455267 E11.[address] Kerr for foot check Essential hypertension 41543647 I10 BP is fine today Depression screening 171 529071 Z13.31 negative phq2 today- doing well Bilateral trigger fingers [id number] 9381294 M65.30 will resubmit the referral [id number] SACHA NARANJO [facility] [address] [facility],[place] [address] 05/15/2022 10:26:21 05/16/2022 13:38:15 Transient cerebral ischemia 217522260 G45.8 [facility] l determine what pharmacy she would like to use and/or a a mail order pharmacy Essential hypertension 94081587 I10 BP is fine today Type 2 larisa betes mellitus 51340293 E11.[address] Kerr for foot check Anxiety 18466419 F41.1 stable [id number] SACHA NARANJO [facility] [address] [facility] [address],[place] [address] 08/22/2022 09:54:57 08/22/2022 15:14:39 Anxiety 50637166 F41.1 stable Diabetes mellitus 225654 09 E11.9 stable Essential hypertension 56456685 I10 BP elevated today, BP is more anxious than usual today Essential tremor 6652901 09 G25.0 will let me know [id number] SACHA NARANJO [facility] [address] [facility],[place] [address] 11/15/2022 10:25:20 11/15/2022 11:30:52 Type 2 diabetes mellitus 55152211 E11.9 stable Essential hypertension 20237990 I10 BP elevated today, BP is more anxious than usual today Allergic rhinitis 656366 04 J30.1 suggested cetirizine Peripheral sensory neuropathy due to type 2 diabetes mellitus 7674803839 66513 E11.42 stable Anxiety 08923562 F41.1 stable Transient cerebral ischemia 950088272 G45.8 [facility] refill[facility] l determine what pharmacy she would like to use and/or a a mail order pharmacy [id number] SACHA NARANJO [facility] [address] [facility],[place] [address] 02/26/2023 13:21:24 02/27/2023 13:42:59 Anxiety 09460015 F41.1 stable Essential hypertension 61322058 I10 BP is stable Hypercholesterolemia 136 61782 E78.2 stable Hypercalcemia 38099166 E 83.52 will fu with recheck of calcium with PTH level Type 2 larisa betes mellitus 26588149 E11.9 needs new [facility] prefers Rona at [facility] Aortic valve stenosis 60 718795 I35.0 [id number] SACHA NARANJO [facility] [address] [facility],[place] [address] 06/01/2023 15:17:51 06/04/2023 10:20:13 Hyperparathyroidism 83935922 E21.0 could be independen t, could be related to kidneys or just dietwinohelia need to continue to monitoron her vit d as well which I will have her continue Essential hypertension 42899566 I10 BP is stable Aortic valve stenosis 60 185657 I35.0 will monitor her valve [id number] SACHA NARANJO [facility] [address] [facility],[place] [address] 08/31/2023 09:20:30 08/31/2023 15:48:39 Essential hypertension 69737109 I10 BP is stable Hypercholesterolemia 136 84371 E78.2 needs recheck Type 2 larisa betes mellitus 12052314 E11.9 new standing orders sent in for the new year, didn't come up when she was there Chronic sinusitis 257951 00 J32.0 will try flonase [id number] [facility] [address] [facility],[place] [address] 10/22/2023 09:36:58 10/22/2023 13:56:03 Parotid swelling 967899106 K11.1 adjust abx and start anti-infla mmatoryENT referral adjusted to STAT per ENT office Hyperparathyroidism 6699 9008 E21.0 stablehas fu with US Type 2 larisa betes mellitus 81408947 E11.42 stable [id number] SACHA NARANJO [facility] [address] [facility],[place] [address] 12/17/2023 09:58:34 12/17/2023 11:28:07 Depression screening 422660755 Z13.31 negative At low risk for fall 439 665252 Z91.81 0 Type 2 larisa betes mellitus 83857650 E11.42 stable Hyperparathyroidism 6699 9008 E21.0 stable Essential hypertension 78751843 I10 BP is stable [id number] SACHA NARANJO [facility] [address] [facility],[place] [address] 04/07/2024 11:35:47 04/07/2024 15:28:48 Type 2 diabetes mellitus 38613163 E11.42 stable Anxiety 34155241 F41.1 stable Aortic valve stenosis 60 298310 I35.0 will monitor her valvesno major changes of Essential hypertension 84290500 I10 BP is excellent [id number] SACHA NARANJO Internal [facility] [address] [facility],[place] [address] 07/09/2024 11:25:22 07/09/2024 12:05:48 Type 2 diabetes mellitus 25963450 E11.42 [id number] is down from 6.8% to 6.7% Essential hypertension 97383134 I10 BP is excellent Health Concerns Section Related Observation LastModified by Organization Detai ls LastModified Time None Recorded Concern Status LastModified by Organization Details LastModified Time None Recorded Advance Directives Directive None Recorded Payers Encounter Date Sequence Insurance Name Policy Number Policy Chan Covered Member ID Chan Member ID Guarantor Name 08/31/2023 1 [place] [employer] Gail D Nighat [id number] Morrow D Nighat 08/31/2023 2 [place] [id number] Morrow Nighat [id number] Gail D Nighat 10/22/2023 1 [place] [employer] Gail D Nighat [id number] Morrow D Nighat 10/22/2023 2 [place] [id number] Gail Nighat [id number] Morrow D Nighat 12/17/2023 1 [place] [employer] Gail D Nighat [id number] Gail D Nighat 12/17/2023 2 [place] [id number] Morrow Nighat [id number] Gail D Nighat 04/07/2024 1 [place] [employer] Morrow D Nighat [id number] Gail D Nighat 04/07/2024 2 [place] [id number] Gail Davilae [id number] Gail Stern Nighat 07/09/2024 1 [place] [facility] Gail Del Toro [id number] Gail Stern [place]ve 07/09/2024 2 [place] [id number] Gail Davilae [id number] Gail Del Toro Notes Date Note Type Note Provider Name a nd Address Organization Details Recorded Time 4 text/html 3 mos f/u the patient [...] due to recent infections SACHA NARANJO [address] [place], [address], [facility] 08/31/2023 09:48:16 4 text/html f/u parotid gland swelling the patient has h/x of parotid glands swelling, in the R sidethe patient needs new STAT referral per ENT given swelling, otherwise booked out 6 mos has US set up, continue with USabx adjusted, added anti-inflammatory otherwise doing okay sig swelling and pain on the R side SACHA NARANJO [address] [place], [address], [facility] 10/22/2023 10:11:17 4 text/html 3 mos f/u the patient had been seen for her parotid gland by Dr. Garcia not recommend surgery at this time, the [...] otherwise concerned about anything SACHA NARANJO [address] [place], [address], [facility] 12/17/2023 10:41:43 4 text/html 3 [...] longer walks declined PT SACHA NARANJO [address] [place], [address], [facility] 04/07/2024 12:30:25 5 text/html Patient presents today for follow-up for Type 2 Diabetes Recent lab showed an A1c of 6.7% The patient has been compliant with medicationsThe complications patient is experiencing are overall general fatigue, loss of motivationThe patient has current concerns about related to their diabetes diagnosis her numbers which are looking greatThe patient has been compliant with lifestyle changes including dietary changes, exercise and healthy habits Recommended increase in proteins and vegetables Discussion about feet reveals normal exam, no changes from last timeDiscussion about eyes reveal normal exam, the patient reports that her glasses are up-to-date Treatment plan going forward is continue on her current medications still having trouble sleeping, staying asleepsuggestive of melatonin, valerian root or magnesium to try first recommended patches for back pain SACHA NARANJO [address] [place], [address], [facility] 07/09/2024 12:03:43 OBGyn Episode No OBEpisode recorded.
--- OUTSIDE RECORDS SUMMARY | 2024-10-02 09:53 | XMS_ITS ---
[facility] [place] Address [address] [place] [address] Care Team Providers Care Deck Mate Name Role Phone Clyde COTE, Trever Primary Care Provider Unavailabl e Black, Suri Unavailable [phone] Allergies Allergen (clinical drug ingredient) Drug/Non Drug [...] Duration) Notes Start Date End Date Status hydroCHLOROthiazide 12.5 MG Orally Once a day Not-Taking Physical Therapy . . . 2-3x/week for 3- 4 weeks 01/01/2018 Not-Taking Simvastatin 20 MG Orally Once a day Not-Taking Physical Therapy . . . 2-3x/week for 3- 4 weeks 07/30/2017 Not-Taking Physical Therapy 3-4x per week for 3- 4 weeks 06/14/2017 Not-Taking Atenolol 25 MG Orally Once a [...] (M20.41,M20.42), Preulcerative Skin Lesion(s) (L85.1 08/01/2017 Not-Taking Flax Oil Xtra Not-Ta irma Extra [...] (M20.41,M20.42), Preulcerative Skin Lesion(s) (L85.1 02/22/2023 Not-Taking Rosuvastatin Calcium 40 MG 1 tablet Oral ly Once a day for 30 day(s) Active metFORMIN HCl 500 MG 1 tablet with meals Orally Twice a day Active Probiotic once daily Active Aspirin 81 MG Orally Once a day Active Extra Depth Orthopedic Shoes (1 Pair) with Customized Heat Molded Multidensity Innersoles (3 Pair) as directed Dx: NIDDM/Polyneuropathy (E11.42), Hammertoe Foot Deformity (M20.41,M20.42), Preulcerative Skin Lesion(s) (L85.1 11/17/2021 Not-Taking Lisinopril 10 MG Orally Once a day Active Vitamin D3 Active Social History Tobacco Use: Social History Observation Description Date Details (start date - stop date) Never Smoker NA - NA Tobacco use other than smoking: Question Answer Notes Are you an other tobacco user? No Tobacco Control (Standard) Question Answer Notes Tobacco use: Nonsmoker Section Notes: . Vital Signs Height 5 ft 1 in in 07/24/2024 Weight 164 lbs 07/24/2024 BMI 30.98 kg/m2 07/24/2024 Blood pressure systolic 130 mm Hg 07/24/19 25 Blood pressure diastolic 70 mm Hg 025 Procedures Procedure Date Ordered Date Performed Result Body Sit e 02005-CMHE SKIN LESIONS, 2 TO 4 07/24/2024 N/A A3191-RQCIBZAH DYSTROPHIC NAILS ANY # 07/24/2024 N/A Encounters Encounter Location Date Provider Diagnosis [facility] [employer] [employer] [address] [place] [address] 07/24/2024 Suri Kerr Type 2 diabetes mellitus with diabetic polyneuropathy E11.42 ; Other hammer toe(s) (acquired), right foot M20.41 and Other hammer toe(s) (acquired), left foot M20.42 Assessments Encounter Date Diagnosis (ICD Code) Assessment Notes Treatment Notes Treatment Clinical Notes Section Notes 07/24/2024 Type 2 diabetes mellitus with diabetic polyneuropathy (ICD-10 - E11.42) 07/24/2024 Other hammer toe(s) (acquired), right foot (ICD-10 - M20.41) 07/24/2024 Other hammer toe(s) (acquired), left foot (ICD-10 - M20.42) Plan Of Treatment Pending Test Test Name Order Date 25940-GPTO SKIN LESIONS, 2 TO 4 07/24/19 25 Z7507-BBHSBNOM DYSTROPHIC NAILS ANY # Next Appt Details Follow Up: 3 Months, Reason: Provider Name:Suri Kerr , 10/27/2024 11:30:00 AM, [address] [place], [address], Procedure Notes * Category Sub-Category Detail Notes Keratoma Treatment Parring or Cutting o f Benign Hyperkeratotic Lesion(s) (-56) 2-4 Lesions - Due to the at risk nature of the patients medical condition as documented in the exam findings, performance of this keratoderma treatment is medically necessary as its management by an unskilled/untrained nonprofessional would put this patients foot and overall health at risk. Therefore, the benign hyperkeratotic lesions, ( 5 ) in total, locations as stated and described in the exam ( _ plantar Heel(s), B/L , TA , T5, Medial plantar , SUB MTH (s), 1 , Left__ ), were pared, and/or cut utilizing a sterile 15 blade, tissue nippers, and/or power dremel instrumentation by the physician of record - 73114 Nail Reduction Nail Reduction (-27) Trimming o f all dystrophic nails - Due to the at risk nature of the patients medical condition as documented in the exam findings, performance of this nail treatment is medically necessary as its management by an unskilled/untrained nonprofessional would put this patients foot and overall health at risk. Therefore, the dystrophic nails, in locations as stated and described in the exam ( T1, T2, T3, T4, T6, T7, T8, T9 ), were debrided by the phisician of record to reduce/remove overall nail length and girth, by manual and electrical means with use of a nail nipper and/or dremel, to more viable healthy nail plate or bed tissue - G0127 Progress Notes * Erma DISLAaDOB:1935 ([age] yo F)Acc No.[id number]:07/24/2024 Progress Note Patient:?Erma DISLAa Provider:?Suri Kerr DPM :1935???Age:89 Y???Sex:Female D ate:07/24/2024 Address:[address] [place] [address] Pcp:Trever Tang MD Subjective: * Chief Complaints: * ???At Risk FootcareToe Irrit ation * HPI: ???At Risk footcare:?Pt States Last PCP Visit:?Date?07/17/2024 ???Toe pain:?Location:?B/L feet.?Duration:?several years.?Course:?, improved.?Aggravated by:?shoes, any pressure.?Treatments:?change in shoes , Rx shoes .? * ROS:?General/Constitutional:?Nausea?denies.?Vomiting?denies.?Hunger Thirst?denies.?Loss appetite?denies.?Chills?denies.?Fatigue?denies.?Fever?denies.?Night Sweats?denies.?Unexplained weight loss?denies.?Unexplained weight gain?denies.?HEENTM:?Dentures?denies.?Dizziness?denies.?Glasses/contacts?admits.?Retinopathy?den ies.?Blurred/double vision?denies.?TMJ?denies.?Discharge/drainage?denies.?Implants?denies.?Sore throat?denies.?Dental implants?denies.?Hard of hearing ?denies.?Difficulty chewing/swallowing/speaking?denies.?Nose bleeds?denies.?Sore mouth?denies.?Respiratory:?On O xygen?denies.?Pneumonia/pleurisy?denies.?Bronchitis?denies.?Emphysema?denies.?Co ughing?denies.?Cough blood?denies.?Shortness of breath?denies.?Wheezing?denies.?Cardiovascular:?Pacemaker?denies.?MVP?denies.?WPW?denies.?CHF?denies.?Heart attack?denies.?Septal defect?denies.?Rapid beat?denies.?Chest pain ?denies.?Atrial Fib.?denies.?Murmur/Palpitations?denies.?Gastrointestinal:?Hemorrhoids?denies.?Stomach/Abdominal pain?denies.?Dark blood stool?denies.?Irritable bowel ?denies.?Constipation?denies.?Diarrhea?denies.?Hematology:?Swelling?denies.?Clots?denies.?Varicose Veins?denies.?Bruising?denies.?Bleeding problem?denies.?Genitourinary:?Blood urine?denies.?Frequent/Painfu/urination/bladder control?denies.?Kidney stones?denies.?Infection (UTI)?denies.?Nephropathy?denies.?sex trans dis (STD)?denies.?Prostate?denies.?Musculoskeletal:?Hammertoes?admits.?Bunions?denies.?Back Pain?denies.?Muscle Cramps/ Resting?denies.?Muscle cramps / walking?denies.?Generalized aches and pains?denies.?Weakness?denies.?Integ.:?Rodriguez?denies.?Scars?denies.?Corns/calluses?admits.?Ingrown nails?denies.?Open Sores?denies.?Rashes?denies.?Neurologic:?Difficulty sleeping?denies.?Brain disorder?denies.?Numbness?denies.?Balance t rouble?denies.?Confusion?denies.?Fainting/blackouts?denies.?Tingling?denies.?Oscar mors?denies.? * Medical History:? * Surgical History:?Appendecto my 10/2004Gall bladder 2012Carotid 11/2005biopsy 01/2024 * Hospitalization/Major Diagno stic Procedure:?Denies Past Hospitalization * Family History:?Mother: dece ased, diagnosed with Diabetic - NIDDM.?Father: .?Maternal aunt: unknown, diagnosed with Other malignant neoplasm of unspecified site.?Maternal uncle: unknown, diagnosed with Other malignant neoplasm of unspecified site.? * Social History:?Tobacco Use:?Tobacco use other than smoking?Are you an other tobacco user??No ?Tobacco Control (Standard)?Tobacco use:?Nonsmoker ???Miscellaneous:?Caffeine: yes, frequency:,decaff 1-2 cups per day. ?Children: yes, 2. ?Exercise: yes, housework, walking. ?Marital status: . ?Occupation: Retired-[employer]. ???. * Medications:?TakingVitamin D 3 Lisinopril 10 MG Tablet Orally Once a day Aspirin 81 MG Tablet Chewable Orally Once a day Probiotic once daily metFORMIN HCl 500 MG Tablet 1 tablet with meals Orally Twice a day Rosuvastatin Calcium 40 MG Tablet 1 tablet Orally Once a day Extra Depth Orthopedic Shoes (1 Pair) with Customized Heat Molded Multidensity Innersoles (3 Pair) as directed Dx: NIDDM/Polyneuropathy (E11.42), Hammertoe Foot Deformity (M20.41,M20.42), Preulcerative Skin Lesion(s) (L85.1 Taking Vitamin D3 Taking Lisinopril 10 MG Tablet Orally Once a day Taking Aspirin 81 MG Tablet Chewable Orally Once a day Taking Probiotic once daily Taking metFORMIN HCl 500 MG Tablet 1 tablet with meals Orally Twice a day Taking Rosuvastatin Calcium 40 MG Tablet 1 tablet Orally Once a day Taking Extra Depth Orthopedic Shoes (1 Pair) with Customized Heat Molded Multidensity Innersoles (3 Pair) as directed Dx: NIDDM/Polyneuropathy (E11.42), Hammertoe Foot Deformity (M20.41,M20.42), Preulcerative Skin Lesion(s) (L85.1 Not-Taking/PRNExtra Depth Orthopedic Shoes (1 Pair) with Customized Heat Molded Multidensity Innersoles (3 Pair) as directed Dx: NIDDM/Polyneuropathy (E11.42), Hammertoe Foot Deformity (M20.41,M20.42), Preulcerative Skin Lesion(s) (L85.1 Flax Oil Xtra Extra Depth Orthopedic Shoes (1 Pair) with Customized Heat Molded Multidensity Innersoles (3 Pair) as directed Dx: NIDDM/Polyneuropathy (E11.42), Hammertoe Foot Deformity (M20.41,M20.42), Preulcerative Skin Lesion(s) (L85.1 ASO Ankle/Foot Stablizing AFO As directed Wear Daily Jamie Brace . . . . . Extra Depth Orthopedic Shoes (1 Pair) with Customized Heat Molded Multidensity Innersoles (3 Pair) as directed Dx: NIDDM/Polyneuropathy (E11.42), Hammertoe Foot Deformity (M20.41,M20.42), Preulcerative Skin Lesion(s) (L85.1 Night Splint AFO - L1930 as directed Extra Depth Orthopedic Shoes (1 Pair) with Customized Heat Molded Multidensity Innersoles (3 Pair) as directed Dx: NIDDM/Polyneuropathy (E11.42), Hammertoe Foot Deformity (M20.41,M20.42), Preulcerative Skin Lesion(s) (L85.1 Extra Depth Orthopedic Shoes (1 Pair) with Customized Heat Molded Multidensity Innersoles (3 Pair) as directed Dx: NIDDM/Polyneuropathy (E11.42), Hammertoe Foot Deformity (M20.41,M20.42), Preulcerative Skin Lesion(s) (L85.1 Atenolol 25 MG Tablet Orally Once a day Simvastatin 20 MG Tablet Orally Once a day Physical Therapy . . . . 2-3x/week hydroCHLOROthiazide 12.5 MG Capsule Orally Once a day Physical Therapy 3-4x per week for 3-4 weeks Physical Therapy . . . . 2-3x/week Medication List reviewed and reconciled with the patientNot-Taking/PRN Extra Depth Orthopedic Shoes (1 Pair) with Customized Heat Molded Multidensity Innersoles (3 Pair) as directed Dx: NIDDM/Polyneuropathy (E11.42), Hammertoe Foot Deformity (M20.41,M20.42), Preulcerative Skin Lesion(s) (L85.1 Not-Taking/PRN Flax Oil Xtra Not-Taking/PRN Extra Depth Orthopedic Shoes (1 Pair) with Customized Heat Molded Multidensity Innersoles (3 Pair) as directed Dx: NIDDM/Polyneuropathy (E11.42), Hammertoe Foot Deformity (M20.41,M20.42), Preulcerative Skin Lesion(s) (L85.1 Not-Taking/PRN ASO Ankle/Foot Stablizing AFO As directed Wear Daily Not-Taking/PRN Jamie Brace . . . . . Not-Taking/PRN Extra Depth Orthopedic Shoes (1 Pair) with Customized Heat Molded Multidensity Innersoles (3 Pair) as directed Dx: NIDDM/Polyneuropathy (E11.42), Hammertoe Foot Deformity (M20.41,M20.42), Preulcerative Skin Lesion(s) (L85.1 Not-Taking/PRN Night Splint AFO - L1930 as directed Not-Taking/PRN Extra Depth Orthopedic Shoes (1 Pair) with Customized Heat Molded Multidensity Innersoles (3 Pair) as directed Dx: NIDDM/Polyneuropathy (E11.42), Hammertoe Foot Deformity (M20.41,M20.42), Preulcerative Skin Lesion(s) (L85.1 Not-Taking/PRN Extra Depth Orthopedic Shoes (1 Pair) with Customized Heat Molded Multidensity Innersoles (3 Pair) as directed Dx: NIDDM/Polyneuropathy (E11.42), Hammertoe Foot Deformity (M20.41,M20.42), Preulcerative Skin Lesion(s) (L85.1 Not-Taking/PRN Atenolol 25 MG Tablet Orally Once a day Not-Taking/PRN Simvastatin 20 MG Tablet Orally Once a day Not-Taking/PRN Physical Therapy . . . . 2-3x/week Not-Taking/PRN hydroCHLOROthiazide 12.5 MG Capsule Orally Once a day Not-Taking/PRN Physical Therapy 3-4x per week for 3-4 weeks Not-Taking/PRN Physical Therapy . . . . 2-3x/week Medication List reviewed and reconciled with the patient * Allergies:?BactrimMorphineCodeineAdhesiveLipitorPercocetCelebrexPercodanPhenylep hrineRofecoxibLatex: AllergyPenicillin: AllergyGlimepiride: hives - Allergyyes[Allergies Verified] Objective: * Vitals:?Ht: 5 ft 1 in, Wt: 1 64, BMI: 30.98, Shoe size: 8.5-9, BP: 130/70 mm Hg, BS: 120, Ht-cm: 154.94 cm, Wt-k.39 kg. * ???Past Orders: ???Lab:HEMOGLOBIN A1C (GLYCO HEMOGLOBIN) (Order Date - 07/17/2024) (Collection Date & Time - 07/17/2024 11:22 AM) ? Value Reference Range ?HEMOGLOBIN A1C % (HH) 6.7 * Examination: ???Ophthalmology Referral: ?DIABETES EYE EXAM?Procedure Performed:?Yes ?Date of Exam Performed?06/01/2024 ?Findings of Diabetic Eye Exam:?no retinopathy?General Examination: ?GENERAL APPEARANCE:?Reveals a pleasant, alert, well nourished, well- developed, well hydrated individual, who demonstrates proper attention to hygiene/body habitus, and is in no acute distress, Pt serves as own historian for office visit today.?ORIENTED:?person, place, and time.?FOOT EXAM:?Lower Extremity Neurological Exam performed:?Yes ?Visual exam of foot performed:?Yes ?Date?07/24/2024 ?Sensory testing performed:?sensations diminished ?Sensory and motor testing performed:?sensations diminished ?Pedal pulse taking performed:?2+ ?Footwear Evaluation?Footwear Evaluation performed:?Yes?Neurological: ?SENSORY:?Neurological exam demonstrates, reduced light touch sensation, reduced sharp/dull pin prick discrimination , reduced vibration sensation, 5.07 monofilament test performed at plantar aspects of 5 varied sites per foot shows sensation, absent, at Forefoot, B/L, Pt relates, anesthesia.?Nails: ?NAILS are:?Elongated, overgrown, dystrophic, T1, T2, T3, T4,? T6, T7, T8, T9.?Dermatologic: ?SKIN FINDINGS:?Skin exam reveals keratotic lesion(s) located at, plantar?Heel(s), B/L , TA , T5, Medial plantar , SUB MTH (s), 1 , Left.?Orthopedic: ?DIGITAL DEFORMITIES:?Digital contracture, PIPJ, 2-5 B/L, incompl-reducible to push-up test, no over, nor underlapping,?there is?no evidence of shoe producing skin irritation.?FOOTWEAR:?good condition, exhibit proper fit and accommodation for pedal deformities. OT were inspected and noted to be worn, but in good condition giving proper support at the present time.? Assessment: * Assessment: 1.?Other hammer toe(s) (acqu ired), right foot - M20.41 (Primary)???Specify :Chronic problem, Stable (1=3,2=4)???2.?Type 2 diabetes mellitus with diabetic polyneuropathy - E11.42???3.?Other hammer toe(s) (acquired), left foot - M20.42???Specify :Chronic problem, Stable (1=3,2=4)??? Plan: * Treatment: * Procedures:?Keratoma Treatment:?Parring or Cutting of Benign Hyperkeratotic Lesion(s)?(-56) 2-4 Lesions - Due to the at risk nature of the patients medical condition as documented in the exam findings, performance of this keratoderma treatment is medically necessary as its management by an unskilled/untrained nonprofessional would put this patients foot and overall health at risk. Therefore, the benign hyperkeratotic lesions, ( 5 ) in total, locations as stated and described in the exam ( _?plantar?Heel(s),?B/L?,?TA?,?T5,?Medial plantar?,?SUB MTH (s),?1?,?Left__ ), were pared, and/or cut utilizing a sterile 15 blade, tissue nippers, and/or power dremel instrumentation by the physician of record - 36958.?Nail Reduction:?Nail Reduction?(-27) Trimming of all dystrophic nails - Due to the at risk nature of the patients medical condition as documented in the exam findings, performance of this nail treatment is medically necessary as its management by an unskilled/untrained nonprofessional would put this patients foot and overall health at risk. Therefore, the dystrophic nails, in locations as stated and described in the exam ( T1, T2, T3, T4, T6, T7, T8, T9 ), were debrided by the phisician of record to reduce/remove overall nail length and girth, by manual and electrical means with use of a nail nipper and/or dremel, to more viable healthy nail plate or bed tissue - G0127.? * Procedure Codes:?74502 TRIM SKIN LESIONS, 2 TO 4, Modifiers: XS G0127 TRIMMING DYSTROPHIC NAILS ANY #, Modifiers: XS * Preventive Medicine:? ??Counseling:?Discussion:?-13: Office or other outpatient visit for the evaluation and management of an established patient, which required a medically appropriate history and/or examination and LOW level of DECISION MAKING for: 1 STABLE ACUTE UNCOMPLICATED PROBLEM, 2 OR MORE MINOR PROBLEMS, OR 1 STABLE CHRONIC PROBLEM, THAT POSE(S) A LOW RISK FOR MORBIDITY/MORTALITY. The visit on the day of the [...] have encouraged the patient to call the office.?Shoe Gear Counseling:?A thorough inspection of the patients Rxed shoegear and inserts was performed and findings communicated. We reviewed the many important medical advantages for adhering to regularly wearing these shoe and insert accomidative devices daily as well as reviewed the fact that a failure in accepting these recommedations may be deleterious, unable to prevent, and disadvantagely result in, many pedal complications such as skin irritation, skin ulceration, infection, and even loss of toe/foot/leg/or even their life. Time was also spent reviewing the proper footcare techniques including daily skin moisturization, daily foot inspection for any interruption in skin integrity, open lesions, or sign of infection such as redness/malodor/drainage/swelling as well as daily shoe inspection for the presence of internal foreign bodies and shoe as well as insert wear. Patient questions re: shoes, inserts, and self foot inspections were answered to their satisfaction as the patient verbally confirmed a full understanding of the above information.? ??Screening/Special Tests:?Fall Risk?Screening:?No falls in the past year ?FALLS: Screening for Future Fall Risk?Have you had any falls with injury in the past year??No * Follow Up:?3 Months * Images: * Sign off status: Completed true * Provider:?Suri Kerr DPM Date:?2024 Generated for Sudhir murry/Sebastián/eTharshalsmitting on:?10/02/2024 09:53 AM EDT History and Physical Notes * HPI (History of Present Illness) Category Sub-Category Detail Notes Category Not es Toe pain Location: B/L feet Duration: several years Course: , improved Aggravated by: shoes, any pressure Treatments: change in shoes , Rx shoes At Risk footcare Pt States Last [...] exam reveal s keratotic lesion(s) located at, plantar Heel(s), B/L , TA , T5, Medial plantar , SUB MTH (s), 1 , Left Orthopedic FOOTWEAR EVALUATION: good condit ion, exhibit proper fit and accommodation for pedal deformities. OT were inspected and noted to be worn, but in good condition giving proper support at the present time DIGITAL DEFORMITIES: Digital contracture , PIPJ, 2-5 B/L, incompl-reducible to push-up test, no over, nor underlapping, there is no evidence of shoe producing skin irritation General Examination GENERAL APPEARANCE: Reveals a pleasant, alert, well nourished, well-developed, well hydrated individual, who demonstrates proper attention to hygiene/body habitus, and is in no acute distress, Pt serves as own historian for office visit today FOOT EXAM: Lower Extremity Neurological Exa m performed:: Yes Visual exam of foot performed:: Yes Date: 07/24/2024 Sensory testing performed:: sensations d iminished Sensory and motor testing performed:: se nsations diminished Pedal pulse taking performed:: 2+ ORIENTED: person, place, and t corrine Footwear Evaluation Footwear Evaluation performe d:: Yes Ophthalmology Referral DIABETES EYE EXAM Procedure Perform ed:: Yes ?Date of Exam Performed: 06/01/2024 Findings of Diabetic Eye Exam:: no retin opathy Nails NAILS are: Elongated, overg rown, dystrophic, T1, T2, T3, T4, T6, T7, T8, T9
[2024-10-02 10:03] LABS: MANUAL DIFF FLAG NO
[2024-10-02 10:08] LABS: Basophils Percent Auto 0.3 % (0-2); Eosinophils Absolute Auto 0.1 X10*3/uL (0.0-0.4); Eosinophils Percent Auto 1.9 % (0-4); Hematocrit 38.6 % (37.0-47.0); Imm Gran Abs Auto 0.01 X10*3/uL (0.00-0.03); Imm Gran Pct Auto 0.2 % (0.0-0.4); Lymphocytes Absolute Auto 2.3 X10*3/uL (1.2-4.9); Lymphocytes Percent Auto 38.2 % (20-40); Mean Corpuscular HGB Conc 33.7 g/dl (31.0-35.0); Mean Corpuscular Hemoglobin 33.2 pg (27.0-33.0); Mean Corpuscular Volume 98.5 fL (80.0-98.0); Monocytes Absolute Auto 0.4 X10*3/uL (0.1-1.2); Monocytes Percent Auto 7.2 % (2-11); Neutrophils Absolute Auto 3.1 x10*3/uL (2.0-8.3); Neutrophils Percent Auto 52.2 % (45-73); Platelet Count 207 X10*3/uL (160-400); Red Blood Count 3.92 X10*6/uL (4.20-5.50); Red Cell Distribution Width 13.4 % (11.0-16.0); White Blood Count 5.9 X10*3/uL (4.8-10.8)
[2024-10-02 10:31] LABS: Alanine Aminotransferase 20 U/L (0-31); Albumin Level 4.4 g/dL (3.5-5.0); Alkaline Phosphatase 78 U/L (39-117); Anion Gap 14 (12-20); Aspartate Amino Transferase 31 U/L (5-31); Bilirubin Total 0.5 mg/dL (0.0-1.0); Blood Urea Nitrogen 12 mg/dL (9-16); Calcium 10.5 mg/dL (8.4-10.2); Carbon Dioxide 29 mmol/L (22-29); Chloride 103 mmol/L (96-108); Estimated Glomerular Filt Rate > 60; Glucose Random 126 mg/dL (60-115); Potassium 4.1 mmol/L (3.3-5.1); Sodium 142 mmol/L (135-145); Total Protein 7.4 g/dL (6.5-8.0)
[2024-10-02 10:40] LABS: Estimated Average Glucose 143 mg/dL; Hemoglobin A1C 170.2442 umol/L; Hemoglobin A1c % 6.6 % (<6.0); Total Hemoglobin (HGBA1C) 3476.8291 umol/L
== END 2024-10-02 09:22 | disposition home or self-care (01) ==
LOC: HO.10HDL 09:21
PROVIDERS: Visit Provider Physician Assistant
DX: E11.42 Type 2 diabetes mellitus with diabetic polyneuropathy (principal)
CPT/HCPCS: 36415; 80053; 83036; 85025

== ENCOUNTER 2025-01-12 08:44 | Outpatient (REF) | payer MEDICARE, SELFPAY ==
--- OUTSIDE RECORDS SUMMARY | 2025-01-12 08:52 | XMS_ITS | Patient Health Record ---
Author Organization [facility] Address [address] [place] [address] Care Team Providers Care Coating Machine Helper Name Role Phone Vipin Ryan Tania [phone] Reason For Referral No Information Plan Of Treatment No Information
[2025-01-12 09:39] LABS: MANUAL DIFF FLAG NO
[2025-01-12 09:48] LABS: Hematocrit 38.0 % (37.0-47.0); Hemoglobin 12.6 g/dl (12.0-16.0); Imm Gran Abs Auto 0.01 X10*3/uL (0.00-0.03); Imm Gran Pct Auto 0.2 % (0.0-0.4); Lymphocytes Absolute Auto 2.1 X10*3/uL (1.2-4.9); Mean Corpuscular HGB Conc 33.2 g/dl (31.0-35.0); Mean Corpuscular Hemoglobin 32.9 pg (27.0-33.0); Mean Corpuscular Volume 99.2 fL (80.0-98.0); NRBC Abs Auto 0.000 X10*3/uL (0.0-0.012); NRBC Pct Auto 0.0 /100WBC (0.0-0.2); Platelet Count 202 X10*3/uL (160-400); Red Blood Count 3.83 X10*6/uL (4.20-5.50); White Blood Count 6.0 X10*3/uL (4.8-10.8)
[2025-01-12 09:52] LABS: Hemoglobin A1C 174.3082 umol/L; Total Hemoglobin (HGBA1C) 3352.9374 umol/L
[2025-01-12 09:56] LABS: Alanine Aminotransferase 21 U/L (0-31); Albumin Level 4.5 g/dL (3.5-5.0); Alkaline Phosphatase 76 U/L (39-117); Anion Gap 13 (12-20); Aspartate Amino Transferase 33 U/L (5-31); Blood Urea Nitrogen 10 mg/dL (9-16); Calcium 10.2 mg/dL (8.4-10.2); Carbon Dioxide 29 mmol/L (22-29); Chloride 104 mmol/L (96-108); Estimated Glomerular Filt Rate > 60; Potassium 4.8 mmol/L (3.3-5.1); Sodium 141 mmol/L (135-145); Total Protein 7.3 g/dL (6.5-8.0)
== END 2025-01-12 08:45 | disposition home or self-care (01) ==
LOC: HO.10HDL 08:44
PROVIDERS: Visit Provider Physician Assistant
DX: E11.42 Type 2 diabetes mellitus with diabetic polyneuropathy (principal)
CPT/HCPCS: 36415; 80053; 83036; 85025

== ENCOUNTER 2025-03-31 09:24 | Outpatient (REF) | payer MEDICARE, SELFPAY ==
--- NOTE | ~2025-03-31 | XR_ITS ---
EXAMINATION: XR KNEE 3 VIEWS LEFT HISTORY: PAIN COMPARISON: There are no prior studies available for comparison. FINDINGS: Three views of the left knee are submitted. Osseous mineralization is normal. There is no fracture or dislocation. There is severe osteoarthritis of the medial compartment with joint space narrowing. There is moderate osteoarthritis of the lateral and patellofemoral compartments. The soft tissues are unremarkable. There is no joint effusion. XR/XR knee LT 3V IMPRESSION: Osteoarthritis of the left knee as described. Electronically signed by: Vipin Whitney MD 03/31/2025 10:22 AM EDT
--- NOTE | ~2025-03-31 | XR_ITS ---
EXAMINATION: XR WRIST, RIGHT CLINICAL INFORMATION: PAIN COMPARISON: None available. TECHNIQUE: PA, lateral, oblique, and scaphoid views of the right wrist. FINDINGS: There is no fracture, dislocation, or suspicious bone lesion. There is normal alignment. There is negative ulnar variance. Severe osteoarthrosis of the first CMC joint with joint space loss, subchondral sclerosis, and marginal spurring. Mild changes at the STT joints. Remainder of the joint spaces are preserved. There is no soft tissue abnormality. XR/XR wrist RT min 3V IMPRESSION: 1. No acute findings of the right wrist. 2. Severe osteoarthrosis of the first CMC joint. Electronically signed by: Jorge A Guevara MD 03/31/2025 10:23 AM EDT
--- NOTE | ~2025-03-31 | XR_ITS ---
EXAMINATION: XR THORACIC SPINE 2 VIEWS HISTORY: PAIN COMPARISON: Comparison is made with the prior examination dated 05/02/2021. FINDINGS: AP and lateral views of the thoracic spine are submitted. Osseous mineralization is normal. The vertebral bodies maintain normal height without evidence of fracture. There is moderate dextroscoliosis involving the lumbar spine. There is diffuse moderate degenerative disc disease with disc space narrowing and osteophyte formation. The visualized paraspinal soft tissues are unremarkable. XR/XR thoracic spine 2V IMPRESSION: Dextroscoliosis of the lumbar spine. Moderate degenerative disc disease. Electronically signed by: Vipin Whitney MD 03/31/2025 10:24 AM EDT
--- OUTSIDE RECORDS SUMMARY | 2025-03-31 10:13 | XMS_ITS | Patient Health Record ---
Author Organization [facility] Address [address] [place] [address] Care Team Providers Care Documentum Consultant Name Role Phone Vipin Ryan Tania [phone] Reason For Referral No Information Plan Of Treatment No Information
--- OUTSIDE RECORDS SUMMARY | 2025-03-31 10:13 | XMS_ITS | Patient Health Record ---
[facility] Address [address] [place] [address] Care Team Providers Care Search Engine Marketing Specialist Name Role Phone Trever Tang MD Primary Care Provider Unavailabl e Black, Suri Unavailable [phone] Allergies Allergen (clinical drug ingredient) Drug/Non Drug [...] Range Notes HEMOGLOBIN A1C (GLYCOHEMOGLO BIN) Reviewed date:07/24/2024 11:23:03 AM Interpretation: Performing Lab: Notes/Report: HEMOGLOBIN A1C % (HH) 6.7 HEMOGLOBIN A1C (GLYCOHEMOGLO BIN) Reviewed date:10/27/2024 11:29:04 AM Interpretation: Performing Lab: Notes/Report: HEMOGLOBIN A1C % (HH) 6.6 Reason For Referral No Information Medications Medication SIG (Take, Route, Frequency, Duration) Notes Start Date End Date Status ASO Ankle/Foot Stablizing AFO As directed Wear Daily; Duration: as needed 05/31/2017 Not-Taking Jamie Brace . . . .; Duration: . 07/30/2017 Not-Taking Extra Depth Orthopedic Shoes (1 Pair) with Customized Heat Molded Multidensity Innersoles (3 Pair) as directed Dx: NIDDM/Polyneuropathy (E11.42), Hammertoe Foot Deformity (M20.41,M20.42), Preulcerative Skin Lesion(s) (L85.1 08/01/2017 Not-Taking Vitamin D3 Active Night Splint AFO - L1930 as directed 03/07/2018 Not-Taking Flax Oil Xtra Not-Ta irma Rosuvastatin Calcium 40 MG 1 tablet Oral ly Once a day; Duration: 30 day(s) Active Extra Depth Orthopedic Shoes (1 Pair) with Customized Heat Molded Multidensity Innersoles (3 Pair) as directed Dx: NIDDM/Polyneuropathy (E11.42), Hammertoe Foot Deformity (M20.41,M20.42), Preulcerative Skin Lesion(s) (L85.1 04/07/2024 Active Lisinopril 10 MG Orally Once a day Active Atenolol 25 MG Orally Once a day Not-Taking Aspirin 81 MG Orally Once a day Active Simvastatin 20 MG Orally Once a day Not-Taking Probiotic once daily Active hydroCHLOROthiazide 12.5 MG Orally Once a day Not-Taking metFORMIN HCl 500 MG 1 tablet with meals Orally Twice a day Active Immunizations Vaccine Route Administration Date Status Comme nts Influenza Unknown 04/25/2017 Administered Influenza Unknown 03/31/2018 Administered Influenza Unknown 05/02/2019 Administered Influenza Unknown 03/29/2020 Administered Influenza Unknown 03/02/2021 Administered Influenza Unknown 03/02/2022 Administered Influenza Unknown 03/02/2023 Administered Influenza Unknown 03/02/2024 Administered COVID-19 Pfizer BioNTech Vaccine Unknown 03/29/2021 Administered First Dose:07/30/2020 2nd dose:08/20/2020 Social History Tobacco Use: Social History Observation [...] (Standard) Question Answer Notes Tobacco use: Nonsmoker AUDIT-C (Standard) Question Answer Notes Did you have a drink containing alcohol in the p ast year? No Points 0 Interpretation Negative Section Notes: . . . . . . . . . . . . . . . . . . . . . . . . . . . . Problems Problem Type SNOMED Code ICD Code Onset Dates Problem Status W/U Status Risk Notes Problem Acquired hammer toe of right foot (864216624815592 5) Other hammer toe(s) (acquired), right foot (M20.41) Active confirmed Response to treatment, Improvement Problem Acquired hammer toe of left foot (275735293751744 3) Other hammer toe(s) (acquired), left foot (M20.42) Active confirmed Response to treatment, Improvement Problem Polyneuropathy due to type 2 diabetes mellitus (515212876) Type 2 diabetes mellitus with diabetic polyneuropathy (E11.42) Active confirmed Vital Signs Blood pressure diastolic 70 mm Hg 02/12/2025 Height 5 ft 1 in in 02/12/2025 Blood pressure systolic 127 mm Hg 02/12/2025 Weight 164 lbs 02/12/2025 BMI 30.98 kg/m2 02/12/2025 Procedures Procedure Date Ordered Date Performed Result Body Sit e 44099-ORGE SKIN LESIONS, 2 TO 4 04/07/2024 N/A W3806-VSKNEVXD DYSTROPHIC NAILS ANY # 04/07/2024 N/A 62047-TPAC SKIN LESIONS, 2 TO 4 07/24/2024 N/A L2010-KGABXYMF DYSTROPHIC NAILS ANY # 07/24/2024 N/A 21348-HULK SKIN LESIONS, 2 TO 4 10/27/2024 N/A E0805-DWYQEZPY DYSTROPHIC NAILS ANY # 10/27/2024 N/A 90243-QLST SKIN LESIONS, OVER 4 02/12/2025 N/A U9493-SNFTUGDV DYSTROPHIC NAILS ANY # 02/12/2025 N/A Encounters Encounter Location Date Provider [facility] [address] [address] 04/07/2024 Suri Black Type 2 diabetes mellitus with diabetic polyneuropathy E11.42 ; Other hammer toe(s) (acquired), left foot M20.42 and Other hammer toe(s) (acquired), right foot M20.41 [facility] [address] 07/24/2024 Suri Black Type 2 diabetes mellitus with diabetic polyneuropathy E11.42 ; Other hammer toe(s) (acquired), right foot M20.41 and Other hammer toe(s) (acquired), left foot M20.[address] [facility] [address] 10/27/2024 Suri Black Pain in left toe(s) M79.675 ; Contusion of lesser toe of left foot without damage to nail, initial encounter S90.122A and Type 2 diabetes mellitus with diabetic polyneuropathy E11.42 [facility] [address] 02/12/2025 Suri Black Type 2 diabetes mellitus with [...] mellitus with diabetic polyneuropathy (ICD-10 - E11.42) 10/27/2024 Pain in left toe(s) (ICD-10 - M79.675) 10/27/2024 Contusion of lesser toe of left foot without damage to nail, initial encounter (ICD-10 - S90.122A) T1 02/12/2025 Other hammer toe(s) (acquired), right foot (ICD-10 - M20.41) Response to treatment, Improvement 02/12/2025 Type 2 diabetes mellitus with diabetic polyneuropathy (ICD-10 - E11.42) 04/07/2024 Other hammer toe(s) (acquired), left foot (ICD-10 - M20.42) 02/12/2025 Other hammer toe(s) (acquired), left foot (ICD-10 - M20.42) Response to treatment, Improvement 10/27/2024 Type 2 diabetes mellitus with diabetic polyneuropathy (ICD-10 - E11.42) 07/24/2024 Other hammer toe(s) (acquired), left foot (ICD-10 - M20.42) 04/07/2024 Other hammer toe(s) (acquired), right foot (ICD-10 - M20.41) Patient Educated with: DIABETIC FOOT CARE INSTRUCTIONS. pdf (DIABETIC FOOT CARE INSTRUCTIONS. pdf) Plan Of Treatment Pending Test Test Name Order Date X ray : Foot, left 3V 01/01/2018 58200-Odgxsajg Plate 10/31/2018 31031-Esxszpty Plate 05/05/2019 94300-Lnaaeequ Plate 11/17/2021 15079-Kuijijcb Plate 12/24/2023 25478-Yobiskzk Plate Each Additional 92106, J0702- INJECT or DRAIN, JOINT/BUR SA 04/02/2017 44172-IANS SKIN LESIONS, OVER 4 02/13/20 25 63658-IPAI SKIN LESIONS, 2 TO 4 07/24/19 25 03274-ASYE SKIN LESIONS, 2 TO 4 10/28/19 25 64270-LRNZ SKIN LESIONS, 2 TO 4 04/07/20 24 05976-VAYY SKIN LESIONS, 2 TO 4 12/24/19 24 50956-OTGB SKIN LESIONS, 2 TO 4 06/04/20 23 84471-EWJI SKIN LESIONS, 2 TO 4 09/13/19 24 59553-ZJOI SKIN LESIONS, 2 TO 4 02/17/20 22 03713-UTKE SKIN LESIONS, 2 TO 4 08/11/19 22 29435-HQWQ SKIN LESIONS, 2 TO 4 11/01/19 19 78343-OJXN SKIN LESIONS, 2 TO 4 11/18/19 22 29000-FFGN SKIN LESIONS, 2 TO 4 05/18/20 22 22398-QGKL SKIN LESIONS, 2 TO 4 08/24/19 23 60560-GDZN SKIN LESIONS, 2 TO 4 11/17/19 23 93888-DVQX SKIN LESIONS, 2 TO 4 02/23/20 23 12814-JKMM SKIN LESIONS, 2 TO 4 04/30/20 17 53289-HQHZ SKIN LESIONS, 2 TO 4 07/30/19 18 45411-WROR SKIN LESIONS, 2 TO 4 10/16/19 18 42559-OZAV SKIN LESIONS, 2 TO 4 01/02/20 18 18740-BIDX SKIN LESIONS, 2 TO 4 08/01/19 19 81568-GZCP SKIN LESIONS, 2 TO 4 03/07/20 18 52370-CDKH SKIN LESIONS, 2 TO 4 05/20/20 18 80364-WNVW SKIN LESIONS, 2 TO 4 07/28/19 20 19111-OSXU SKIN LESIONS, 2 TO 4 04/26/20 20 15690-KIVH SKIN LESIONS, 2 TO 4 01/31/20 19 39689-FZFG SKIN LESIONS, 2 TO 4 05/05/20 19 90507-ZMBM SKIN LESIONS, 2 TO 4 07/29/19 21 82010-EEAV SKIN LESIONS, 2 TO 4 11/02/19 21 87246-YJXU SKIN LESIONS, 2 TO 4 01/21/20 67090-NYSJ SKIN LESIONS, 2 TO 4 04/28/20 42352-RDUJ NAIL(S) 04/28/2021 44886-HBTH NAIL(S) 01/20/2021 56821-KZID NAIL(S) 11/01/2020 55317-JHHG NAIL(S) 07/29/2020 14734-WQSS NAIL(S) 05/05/2019 82012-UDAR NAIL(S) 01/30/2019 98858-CEMQ NAIL(S) 04/26/2020 19142-YGQC NAIL(S) 07/28/2019 74347-XMLH NAIL(S) 05/20/2018 34785-FCFP NAIL(S) 03/07/2018 19520-WZWM NAIL(S) 08/01/2018 33466-IKJJ NAIL(S) 10/31/2018 24438-NZLB NAIL(S) 01/01/2018 84629-VMKG NAIL(S) 10/15/2017 05082-BFXY NAIL(S) 07/30/2017 46171-GRSH NAIL(S) 04/30/2017 80709-NSQK NAIL(S) 08/24/2022 66717-EIMN NAIL(S) 05/18/2022 08006-VDRL NAIL(S) 08/11/2021 92335-GMXB NAIL(S) 02/16/2022 95635-VNSX NAIL(S) 11/17/2021 V0312-MHKGUNDU DYSTROPHIC NAILS ANY # P0840-HGQXLXIO DYSTROPHIC NAILS ANY # O6789-YWVXTFIO DYSTROPHIC NAILS ANY # M8330-OUJEXEJC DYSTROPHIC NAILS ANY # N8956-WHEPJXAD DYSTROPHIC NAILS ANY # E4726-ENOHIZRL DYSTROPHIC NAILS ANY # B1571-MIFBXGFO DYSTROPHIC NAILS ANY # B4671-WRSHMAEU DYSTROPHIC NAILS ANY # S6852-ROOVLNLX DYSTROPHIC NAILS ANY # Next Appt Details Provider Name:Suri Kerr , 05/14/2025 11:15:00 AM, [address] [place] [address], [phone], Insurance Providers Payer Name Payer Address Payer Phone Subscriber Number Group Number Insured Name Patient Relationship to Insured Coverage Start Date Coverage End Date Medicare National [employer] [address] [place] [address] [id number] Gail Disla Self - patient is the insured Med Blue Shield [address] [place] [address] [id number] Gail Disla Self - patient is the insured Medical (General) History Medical History History ICD Code Back,Hip,and Knee pain CAD (Cholesterol) Diabetic Gall bladder problems High blood pressure Osteoporosis Scarlet fever Measles Mumps Chicken pox Surgical History Surgery Date(Month/Year) Appendectomy 10/2004 Gall bladder 2012 Carotid 11/2005 biopsy 01/2024
== END 2025-03-31 09:25 | disposition home or self-care (01) ==
LOC: HO.XRAY 09:24
PROVIDERS: PCP Physician Assistant; Visit Provider Physician Assistant
DX: M25.562 Pain in left knee (principal); M25.531 Pain in right wrist; M54.6 Pain in thoracic spine
CPT/HCPCS: 72070; 73110; 73562

== ENCOUNTER → 2025-03-31 09:57 | Outpatient (BNV) | payer MEDICARE, SELFPAY | PROVIDERS: PCP Physician Assistant; Visit Provider Radiology Diagnostic Radiology | DX: M51.34 Other intervertebral disc degeneration, thoracic region (principal); M41.86 Other forms of scoliosis, lumbar region; M17.12 Unilateral primary osteoarthritis, left knee; M19.031 Primary osteoarthritis, right wrist | CPT/HCPCS: 72070; 73110; 73562 ==

== ENCOUNTER 2025-04-16 09:02 | Outpatient (REF) | payer MEDICARE, SELFPAY ==
--- OUTSIDE RECORDS SUMMARY | 2025-04-16 10:06 | XMS_ITS | Patient Health Record ---
Author Organization [facility] Address [address] [place] [address] Care Team Providers Care Eeg Tech Name Role Phone Vipin Ryan Tania [phone] Reason For Referral No Information Plan Of Treatment No Information
--- OUTSIDE RECORDS SUMMARY | 2025-04-16 10:07 | XMS_ITS | Patient Health Record ---
[facility] Address [address] [place] [address] Care Team Providers Care Planning Associate Name Role Phone Trever Tang MD Primary Care Provider Unavailabl e Black, Suri Unavailable [phone] Allergies Allergen (clinical drug ingredient) Drug/Non Drug [...] Problem Acquired hammer toe of right foot (135166140297454 5) Other hammer toe(s) (acquired), right foot (M20.41) Active confirmed Response to treatment, Improvement Problem Acquired hammer toe of left foot (937495681289431 3) Other hammer toe(s) (acquired), left foot (M20.42) Active confirmed Response to treatment, Improvement Problem Polyneuropathy due to type 2 diabetes mellitus (011104500) Type 2 diabetes mellitus with diabetic polyneuropathy (E11.42) Active confirmed Vital Signs Blood pressure diastolic 70 mm Hg 02/12/2025 Height 5 ft 1 in in 02/12/2025 Blood pressure systolic 127 mm Hg 02/12/2025 Weight 164 lbs 02/12/2025 BMI 30.98 kg/m2 02/12/2025 Procedures Procedure Date Ordered Date Performed Result Body Sit e 20189-OIXS SKIN LESIONS, 2 TO 4 07/24/2024 N/A A2908-IBKKESFY DYSTROPHIC NAILS ANY # 07/24/2024 N/A 96108-ONYO SKIN LESIONS, 2 TO 4 10/27/2024 N/A A9632-ACVSDMVQ DYSTROPHIC NAILS ANY # 10/27/2024 N/A 01847-MIVG SKIN LESIONS, OVER 4 02/12/2025 N/A I5569-AOHTDCTB DYSTROPHIC NAILS ANY # 02/12/2025 N/A Encounters Encounter Location Date Provider Diagnosis [facility] [address] [address] 07/24/2024 Suri Black Type 2 diabetes mellitus with diabetic polyneuropathy E11.42 ; Other hammer toe(s) (acquired), right foot M20.41 and Other hammer toe(s) (acquired), left foot M20.42 [facility] [address] 10/27/2024 Suri Black Pain in left toe(s) M79.675 ; Contusion of lesser toe of left foot without damage to nail, initial encounter S90.122A and Type 2 diabetes mellitus with diabetic polyneuropathy E11.42 [facility] [place] [address] [place] [address] 02/12/2025 Suri Kerr Type 2 diabetes mellitus with diabetic polyneuropathy E11.42 ; Other hammer toe(s) (acquired), right foot M20.41 and Other hammer toe(s) (acquired), left foot M20.42 Assessments Encounter Date Diagnosis (ICD Code) Assessment Notes Treatment Notes Treatment Clinical Notes Section Notes 07/24/2024 Other hammer toe(s) (acquired), right foot [...] mellitus with diabetic polyneuropathy (ICD-10 - E11.42) 02/12/2025 Other hammer toe(s) (acquired), left foot (ICD-10 - M20.42) Response to treatment, Improvement 10/27/2024 Type 2 diabetes mellitus with diabetic polyneuropathy (ICD-10 - E11.42) 07/24/2024 Other hammer toe(s) (acquired), left foot (ICD-10 - M20.42) Plan Of Treatment Pending Test Test Name Order Date X ray : Foot, left 3V 01/01/2018 81264-Talvhzwt Plate 10/31/2018 64843-Shmhadee Plate 05/05/2019 68633-Ovhfmrpl Plate 11/17/2021 50428-Catdqxgs Plate 12/24/2023 83187-Jqczmnyd Plate Each Additional 80939, J0702- INJECT or DRAIN, JOINT/BUR SA 04/02/2017 62169-SPJK SKIN LESIONS, OVER 4 02/13/20 98954-DLHV SKIN LESIONS, 2 TO 4 07/24/19 29100-EZMU SKIN LESIONS, 2 TO 4 10/28/19 66931-ODGV SKIN LESIONS, 2 TO 4 04/07/20 30618-YAGK SKIN LESIONS, 2 TO 4 12/24/19 63320-BOXB SKIN LESIONS, 2 TO 4 06/04/20 47491-XYLL SKIN LESIONS, 2 TO 4 09/13/19 89513-EIZF SKIN LESIONS, 2 TO 4 02/17/20 44009-UYVP SKIN LESIONS, 2 TO 4 08/11/19 80640-LTAX SKIN LESIONS, 2 TO 4 11/01/19 13318-GMZZ SKIN LESIONS, 2 TO 4 11/18/19 45577-CEHY SKIN LESIONS, 2 TO 4 05/18/20 82036-QPNI SKIN LESIONS, 2 TO 4 08/24/19 33457-HJEM SKIN LESIONS, 2 TO 4 11/17/19 52706-EQUY SKIN LESIONS, 2 TO 4 02/23/20 89962-VYYQ SKIN LESIONS, 2 TO 4 04/30/20 17 39549-PMSE SKIN LESIONS, 2 TO 4 07/30/19 18 98974-IWEQ SKIN LESIONS, 2 TO 4 10/16/19 18 29863-CHMW SKIN LESIONS, 2 TO 4 01/02/20 18 93933-VMGM SKIN LESIONS, 2 TO 4 08/01/19 19 09906-PZJG SKIN LESIONS, 2 TO 4 03/07/20 18 63224-RGTA SKIN LESIONS, 2 TO 4 05/20/20 18 19157-CKTB SKIN LESIONS, 2 TO 4 07/28/19 20 63721-GKRZ SKIN LESIONS, 2 TO 4 04/26/20 20 48700-TOOJ SKIN LESIONS, 2 TO 4 01/31/20 92436-PCRR SKIN LESIONS, 2 TO 4 05/05/20 19 05743-ZHVS SKIN LESIONS, 2 TO 4 07/29/19 96766-NOHD SKIN LESIONS, 2 TO 4 11/02/19 93902-MKTU SKIN LESIONS, 2 TO 4 01/21/20 43009-XWNI SKIN LESIONS, 2 TO 4 04/28/20 30850-MUMJ NAIL(S) 04/28/2021 08737-IXAI NAIL(S) 01/20/2021 67655-MLVG NAIL(S) 11/01/2020 61357-QPGR NAIL(S) 07/29/2020 20621-GLFA NAIL(S) 05/05/2019 67919-VDEK NAIL(S) 01/30/2019 21805-AEWX NAIL(S) 04/26/2020 66757-SKCM NAIL(S) 07/28/2019 07163-AFUO NAIL(S) 05/20/2018 88169-OXRQ NAIL(S) 03/07/2018 56412-OMLR NAIL(S) 08/01/2018 92412-ZONF NAIL(S) 10/31/2018 16424-MSDT NAIL(S) 01/01/2018 27204-PWPV NAIL(S) 10/15/2017 19743-MRTY NAIL(S) 07/30/2017 98941-EGPA NAIL(S) 04/30/2017 20186-DULY NAIL(S) 08/24/2022 33512-JDQC NAIL(S) 05/18/2022 37296-SQQT NAIL(S) 08/11/2021 86869-VVGP NAIL(S) 02/16/2022 82894-YTXX NAIL(S) 11/17/2021 D4955-WXXIPSEE DYSTROPHIC NAILS ANY # U2076-YGLJDIBN DYSTROPHIC NAILS ANY # I1340-ZZTATGMH DYSTROPHIC NAILS ANY # X8418-FPRHGERZ DYSTROPHIC NAILS ANY # O1670-WVAQFHOC DYSTROPHIC NAILS ANY # I9366-RTNPCHRK DYSTROPHIC NAILS ANY # Y6800-AIQWXDIX DYSTROPHIC NAILS ANY # C4772-DZKPGLFD DYSTROPHIC NAILS ANY # V5094-CAUHGIDE DYSTROPHIC NAILS ANY # Next Appt Details Provider Name:Suri Kerr , 05/14/2025 11:15:00 AM, [address] [facility], [place], [address], Insurance Providers Payer Name Payer Address Payer Phone Subscriber Number Group Number Insured Name Patient Relationship to Insured Coverage Start Date Coverage End Date Medicare [facility] [address] [place] [address] [id number] Gail Disla Self - patient is the insured [employer] [address] [place] [address] [id number] Gail Disla Self - patient is the insured Medical (General) History Medical History History ICD Code Back,Hip,and Knee pain CAD (Cholesterol) Diabetic Gall bladder problems High blood pressure Osteoporosis Scarlet fever Measles Mumps Chicken pox Surgical History Surgery Date(Month/Year) Appendectomy 10/2004 Gall bladder 2012 Carotid 11/2005 biopsy 01/2024
[2025-04-16 10:11] LABS: MANUAL DIFF FLAG NO
[2025-04-16 10:12] LABS: Hematocrit 40.7 % (37.0-47.0); Hemoglobin 13.2 g/dl (12.0-16.0); Imm Gran Abs Auto 0.01 X10*3/uL (0.00-0.03); Imm Gran Pct Auto 0.2 % (0.0-0.4); Lymphocytes Absolute Auto 2.0 X10*3/uL (1.2-4.9); Mean Corpuscular HGB Conc 32.4 g/dl (31.0-35.0); Mean Corpuscular Hemoglobin 32.7 pg (27.0-33.0); Mean Corpuscular Volume 100.7 fL (80.0-98.0); NRBC Abs Auto 0.000 X10*3/uL (0.0-0.012); NRBC Pct Auto 0.0 /100WBC (0.0-0.2); Platelet Count 216 X10*3/uL (160-400); Red Blood Count 4.04 X10*6/uL (4.20-5.50); White Blood Count 6.5 X10*3/uL (4.8-10.8)
[2025-04-16 11:27] LABS: Alanine Aminotransferase 21 U/L (0-31); Albumin Level 4.7 g/dL (3.5-5.0); Alkaline Phosphatase 71 U/L (39-117); Anion Gap 14 (12-20); Aspartate Amino Transferase 33 U/L (5-31); Blood Urea Nitrogen 11 mg/dL (9-16); Calcium 10.3 mg/dL (8.4-10.2); Carbon Dioxide 29 mmol/L (22-29); Chloride 101 mmol/L (96-108); Estimated Glomerular Filt Rate > 60; Potassium 4.3 mmol/L (3.3-5.1); Sodium 140 mmol/L (135-145); Total Protein 7.4 g/dL (6.5-8.0)
[2025-04-16 11:46] LABS: Hemoglobin A1C 190.6283 umol/L; Total Hemoglobin (HGBA1C) 3395.1964 umol/L
== END 2025-04-16 09:03 | disposition home or self-care (01) ==
LOC: HO.10HDL 09:02
PROVIDERS: Visit Provider Physician Assistant
DX: E11.42 Type 2 diabetes mellitus with diabetic polyneuropathy (principal)
CPT/HCPCS: 36415; 80053; 83036; 85025